=== PATIENT | female | born 1985 | race Caucasian/White ===

== ENCOUNTER 2020-10-13 10:49 | Outpatient (REF) | payer OTHER, SELFPAY ==
[2020-10-13 11:37] LABS: MANUAL DIFF FLAG NO
[2020-10-13 11:57] LABS: Basophils Percent Auto 0.4 % (0-2); Eosinophils Absolute Auto 0.1 X10*3/uL (0.0-0.4); Eosinophils Percent Auto 2.4 % (0-4); Hematocrit 41.2 % (37-47); Hemoglobin 13.2 g/dl (12.0-16.0); Imm Gran Abs Auto 0.01 X10*3/uL (0.00-0.03); Imm Gran Pct Auto 0.2 % (0.0-0.4); Lymphocytes Absolute Auto 1.7 X10*3/uL (1.2-4.9); Lymphocytes Percent Auto 32.1 % (20-40); Mean Corpuscular Hemoglobin 27.3 pg (27.0-33.0); Mean Corpuscular Volume 85.1 fL (80-98); Mean Platelet Volume 10.9 fL (9.4-12.3); Monocytes Absolute Auto 0.5 X10*3/uL (0.1-1.2); Neutrophils Percent Auto 55.9 % (45-73); Platelet Count 208 X10*3/uL (160-400); Red Blood Count 4.84 X10*6/uL (4.20-5.50); Red Cell Distribution Width 12.6 % (11.0-16.0); White Blood Count 5.4 X10*3/uL (4.8-10.8)
[2020-10-13 12:23] LABS: Alanine Aminotransferase 38 U/L (0-31); Alkaline Phosphatase 111 U/L (39-117); Anion Gap 15 (12-20); Aspartate Amino Transferase 29 U/L (5-31); Bilirubin Total 0.5 mg/dL (0.0-1.0); Blood Urea Nitrogen 9 mg/dL (9-16); Calcium 8.5 mg/dL (8.4-10.2); Carbon Dioxide 23 mmol/L (22-29); Chloride 107 mmol/L (96-108); Cholesterol 110 mg/dL; Estimated Glomerular Filt Rate > 60; Glucose Fasting 94 mg/dL (60-99); HDL Cholesterol 28 mg/dL; LDL Cholesterol Calculated 70 mg/dl; Potassium 4.3 mmol/L (3.3-5.1); Sodium 141 mmol/L (135-145); Total Protein 7.8 g/dL (6.5-8.0); Triglycerides 63 mg/dL
== END 2020-10-13 10:50 | disposition home or self-care (01) ==
LOC: HO.LAB 10:49
PROVIDERS: PCP Internal Medicine; Visit Provider Nurse Practitioner Family
DX: H60.90 Unspecified otitis externa, unspecified ear (principal)
CPT/HCPCS: 36415; 80053; 80061; 85025

== ENCOUNTER 2021-04-13 14:54 | Outpatient (REF) | payer OTHER, SELFPAY | END 2021-04-13 14:55 | disposition home or self-care (01) | LOC: HO.LAB 14:54 | PROVIDERS: PCP Internal Medicine; Visit Provider Internal Medicine | DX: Z20.822 Contact with and (suspected) exposure to COVID-19 (principal) | CPT/HCPCS: C9803; U0003; U0005 ==

== ENCOUNTER 2022-09-21 09:57 | Outpatient (REF) | payer MEDICAID, SELFPAY ==
[2022-09-21 10:50] LABS: MANUAL DIFF FLAG NO
[2022-09-21 10:53] LABS: Basophils Percent Auto 0.4 % (0-2); Eosinophils Absolute Auto 0.1 X10*3/uL (0.0-0.4); Eosinophils Percent Auto 0.6 % (0-4); Hemoglobin 13.1 g/dl (12.0-16.0); Imm Gran Abs Auto 0.05 X10*3/uL (0.00-0.03); Imm Gran Pct Auto 0.5 % (0.0-0.4); Lymphocytes Absolute Auto 2.7 X10*3/uL (1.2-4.9); Lymphocytes Percent Auto 27.2 % (20-40); Mean Corpuscular HGB Conc 32.8 g/dl (31.0-35.0); Mean Corpuscular Hemoglobin 27.7 pg (27.0-33.0); Mean Corpuscular Volume 84.6 fL (80.0-98.0); Mean Platelet Volume 10.6 fL (9.4-12.3); Monocytes Absolute Auto 0.4 X10*3/uL (0.1-1.2); Monocytes Percent Auto 4.4 % (2-11); Neutrophils Absolute Auto 6.7 x10*3/uL (2.0-8.3); Neutrophils Percent Auto 66.9 % (45-73); Platelet Count 233 X10*3/uL (160-400); Red Blood Count 4.73 X10*6/uL (4.20-5.50); Red Cell Distribution Width 12.8 % (11.0-16.0)
[2022-09-21 12:27] LABS: Alanine Aminotransferase 32 U/L (0-31); Albumin Level 3.8 g/dL (3.5-5.0); Alkaline Phosphatase 118 U/L (39-117); Anion Gap 11 (12-20); Aspartate Amino Transferase 21 U/L (5-31); Bilirubin Total 0.5 mg/dL (0.0-1.0); Blood Urea Nitrogen 12 mg/dL (9-16); Calcium 8.8 mg/dL (8.4-10.2); Carbon Dioxide 26 mmol/L (22-29); Chloride 106 mmol/L (96-108); Cholesterol 137 mg/dL; Estimated Glomerular Filt Rate > 60; Glucose Fasting 110 mg/dL (60-99); HDL Cholesterol 39 mg/dL; LDL Cholesterol Calculated 86 mg/dl; Potassium 4.2 mmol/L (3.3-5.1); Sodium 139 mmol/L (135-145); Total Protein 7.5 g/dL (6.5-8.0); Triglycerides 63 mg/dL
== END 2022-09-21 09:58 | disposition home or self-care (01) ==
LOC: HO.10HDL 09:57
PROVIDERS: Visit Provider Internal Medicine
DX: Z00.00 Encounter for general adult medical examination without abnormal findings (principal); E28.2 Polycystic ovarian syndrome; E66.01 Morbid (severe) obesity due to excess calories; F32.9 Major depressive disorder, single episode, unspecified; F41.8 Other specified anxiety disorders; F43.12 Post-traumatic stress disorder, chronic; H60.391 Other infective otitis externa, right ear; Z12.4 Encounter for screening for malignant neoplasm of cervix
CPT/HCPCS: 36415; 80053; 80061; 84443; 85025

== ENCOUNTER 2022-10-25 12:20 | Outpatient (REF) | payer MEDICAID, SELFPAY ==
[2022-10-25 16:18] LABS: CT PCR NOT DETECTED (Not Detect.); NG PCR NOT DETECTED (Not Detect.)
== END 2022-10-25 12:21 | disposition home or self-care (01) ==
LOC: HO.10HDL 12:20
PROVIDERS: Visit Provider Internal Medicine
DX: E28.2 Polycystic ovarian syndrome (principal); E66.01 Morbid (severe) obesity due to excess calories; A59.01 Trichomonal vulvovaginitis; R73.01 Impaired fasting glucose
CPT/HCPCS: 0353U

== ENCOUNTER 2023-02-23 12:19 | Outpatient (REF) | payer MEDICAID, SELFPAY ==
[2023-02-23 13:56] LABS: Estimated Average Glucose 103 mg/dL; Hemoglobin A1c % 5.2 %
[2023-02-23 14:19] LABS: Alanine Aminotransferase 26 U/L (0-31); Alkaline Phosphatase 97 U/L (39-117); Anion Gap 13 (12-20); Aspartate Amino Transferase 20 U/L (5-31); Bilirubin Total 0.9 mg/dL (0.0-1.0); Blood Urea Nitrogen 11 mg/dL (9-16); Calcium 9.1 mg/dL (8.4-10.2); Carbon Dioxide 22 mmol/L (22-29); Chloride 109 mmol/L (96-108); Estimated Glomerular Filt Rate > 60; Glucose Random 95 mg/dL (60-115); Sodium 140 mmol/L (135-145); Total Protein 8.1 g/dL (6.5-8.0)
[2023-02-23 18:09] LABS: CT PCR NOT DETECTED (Not Detect.); NG PCR NOT DETECTED (Not Detect.)
== END 2023-02-23 12:20 | disposition home or self-care (01) ==
LOC: HO.10HDL 12:19
PROVIDERS: Visit Provider Internal Medicine
DX: A59.01 Trichomonal vulvovaginitis (principal); E28.2 Polycystic ovarian syndrome; E66.01 Morbid (severe) obesity due to excess calories; R73.01 Impaired fasting glucose
CPT/HCPCS: 0353U; 80053; 83036

== ENCOUNTER → 2023-03-08 10:07 | Outpatient (BNVA) | payer MEDICAID, SELFPAY | PROVIDERS: PCP Internal Medicine; Visit Provider Physician Assistant Surgical ==

== ENCOUNTER 2023-03-29 08:05 | Outpatient (AMB) | payer MEDICAID, SELFPAY ==
--- NOTE | 2023-03-29 11:58 | A.OFFVIS_ITS ---
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 Allergies No Known Allergies [No Known Allergies*] Allergy (Unknown, Verified 03/29/23 11:58) Medication List - Last Reconciled 03/29/23 by Obdulio Davies MD escitalopram oxalate 10 mg PO DAILY levonorgestrel (Plan B One-Step) 1.5 mg PO ONCE 1 day lorazepam 1 mg PO DAILY PRN melatonin 5 mg PO BEDTIME [id number] 3.5-10,000-1 mg/mL-unit/mL-% 4 drps otic (ears) Q8H 7 days HPI 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 HPI Details Start time: 11.45am, End time: 12.27pm ?I spent 37 minutes speaking with the patient on the phone plus an additional 5 minutes reviewing and updating records for a total of 42 minutes HPI Comments History of Present Illness Details Previous weight loss efforts: Exercise, self diets, OTC pills (Hydroxycut), Karely Mcleod Wakes up: 6am, Sleeps: 2am Breakfast: skips Lunch: 12pm (boiled or scrambled egg with toast or cereal) Dinner: 5pm (chicken, rice and beans) Snacks: toasted bread at 8pm Exercise: has home stationary bike Fluids: Coffee: none, tea: none, soda: 1-2/month,juice: none, ETOH: none PFSH Medical History (Updated 03/29/23 @ 12:03 by Obdulio Davies MD) Anxiety and depression Back pain Morbid obesity Otitis externa Prediabetes Surgical History (Updated 03/29/23 @ 12:03 by Obdulio Davies MD) History of cataract surgery Assessment & Plan Assessment & Plan (1) Morbid obesity: Code(s): E66.01 - Morbid (severe) obesity due to excess calories Plan: 1.? Plan for lap sleeve gastrectomy. If diaphragmatic or ventral hernias are present at time of surgery, these will be repaired laparoscopically as well. Risks and complications were discussed in detail including possible conversion to an open procedure, anastomotic leak, bleeding requiring transfusion, small bowel obstruction, , DVT and pulmonary embolism, cardiac, or pulmonary complications, as half-way complications such as anastomotic ulcer, insufficient weight loss and vitamin deficiencies. I emphasized the importance of close follow-up, adherence to instructions and good communication. 2. Nutritional counseling. Start with 2 plant-based organic Orgain protein (buy at [employer], [employer], [employer], [employer]) shakes (ONE scoop EACH in 8oz low fat unsweetened almond milk each) at 7am-9am and 10am-12pm, 2 protein bars (Zone Perfect protein bars, buy at [employer], ?[employer], [employer], or [employer]) at 1pm-3pm and 4pm-6pm, dinner at 7pm (8 forks of protein and 8 forks of salad/vegetables) AND TWO more protein bars after dinner at 9pm-11pm and 12am-2am. Meal to include lean meat (beef, fish, pork, turkey, chicken), or frisian yogurt, or egg whites, or beans with a salad with olive oil and fruits (berries, pears, apples, kiwi). Avoid salt, breads, potatoes, rice, pasta, desserts. 3. Each shake would be drunk slowly, like coffee in a period of 2 hours. 4. Cut each bar in 4 pieces and eat each piece in 30min ?to make each bar last 2 hours. 5. I emphasized the importance of measuring accurately the food portion and measure it when serving the food in plate 6. The meal portions include 8 full-size forks of meat and 8 full-size forks of salad. You always eat the meat portion but you can replace up to 4 forks for salad/vegetables with rice, potatoes or pasta, or a fruit ?if you like. The less you do it the better weight loss will be. 7. One full-size fork is what it can be scooped on the fork without falling aside and not what can be bit with the fork. Use regular forks like those you find in a typical restaurant. 8.? Please send me weight measurements as soon as possible and then once a week. Always include your diet and exercise plan. 9. Start stationary bike at a resistance level of 4.0 Increase level by 1.0 every 3 min to a max level of 10.0. Stay at this level for 3 min and then return to level 4.0 and repeat same steps until 300 calories are burned. Goal is to burn 2000 calories per week on exercise, which means either 300 calories daily, or 400 calories 5 days per week, or 500 calories 4 days per week, or 650 calories 3 days per week. 10.?It is important of avoiding and for at least 18 months postoperatively and has been discussed at the infosession. 11. Goal is to lose at least 1.5-2lbs per week 12. Goal to lose 10% of your weight before surgery, which is about 25lbs. Ultimate weight goal: 220lbs before surgery 13. Please follow the diet plan exactly without any change. If you don't like something about the plan or you feel hungry you need to communicate with me so I can help you revise the plan. You should not change the plan yourself. (2) Anxiety and depression: Code(s): F41.9 - Anxiety disorder, unspecified; F32.9 - Major depressive disorder, single episode, unspecified (3) Back pain: Code(s): M54.9 - Dorsalgia, unspecified (4) Prediabetes: Code(s): R73.03 - Prediabetes Orders: Orders Vitamin B12 and Folate Today E66.01 - Morbid (severe) obesity due to excess calories, F32.9 - Major depressive disorder, single episode, unspecified, F41.9 - Anxiety disorder, unspecified, M54.9 - Dorsalgia, unspecified, R73.03 - Prediabetes Comprehensive Met. Panel Today E66.01 - Morbid (severe) obesity due to excess calories, F32.9 - Major depressive disorder, single episode, unspecified, F41.9 - Anxiety disorder, unspecified, M54.9 - Dorsalgia, unspecified, R73.03 - Prediabetes C Reactive Protein Today E66.01 - Morbid (severe) obesity due to excess calories, F32.9 - Major depressive disorder, single episode, unspecified, F41.9 - Anxiety disorder, unspecified, M54.9 - Dorsalgia, unspecified, R73.03 - Prediabetes Ferritin Today E66.01 - Morbid (severe) obesity due to excess calories, F32.9 - Major depressive disorder, single episode, unspecified, F41.9 - Anxiety disorder, unspecified, M54.9 - Dorsalgia, unspecified, R73.03 - Prediabetes Hemoglobin A1c Today E66.01 - Morbid (severe) obesity due to excess calories, F32.9 - Major depressive disorder, single episode, unspecified, F41.9 - Anxiety disorder, unspecified, M54.9 - Dorsalgia, unspecified, R73.03 - Prediabetes Insulin Today E66.01 - Morbid (severe) obesity due to excess calories, F32.9 - Major depressive disorder, single episode, unspecified, F41.9 - Anxiety disorder, unspecified, M54.9 - Dorsalgia, unspecified, R73.03 - Prediabetes IRON PROFILE Today E66.01 - Morbid (severe) obesity due to excess calories, F32.9 - Major depressive disorder, single episode, unspecified, F41.9 - Anxiety disorder, unspecified, M54.9 - Dorsalgia, unspecified, R73.03 - Prediabetes Lipid Panel Today E66.01 - Morbid (severe) obesity due to excess calories, F32.9 - Major depressive disorder, single episode, unspecified, F41.9 - Anxiety dis order, unspecified, M54.9 - Dorsalgia, unspecified, R73.03 - Prediabetes PTHI Today E66.01 - Morbid (severe) obesity due to excess calories, F32.9 - Major depressive disorder, single episode, unspecified, F41.9 - Anxiety disorder, unspecified, M54.9 - Dorsalgia, unspecified, R73.03 - Prediabetes TSH reflex Free T4 Today E66.01 - Morbid (severe) obesity due to excess calories, F32.9 - Major depressive disorder, single episode, unspecified, F41.9 - Anxiety disorder, unspecified, M54.9 - Dorsalgia, unspecified, R73.03 - Prediabetes Vitamin A Today E66.01 - Morbid (severe) obesity due to excess calories, F32.9 - Major depressive disorder, single episode, unspecified, F41.9 - Anxiety disorder, unspecified, M54.9 - Dorsalgia, unspecified, R73.03 - Prediabetes Vitamin B1 Today E66.01 - Morbid (severe) obesity due to excess calories, F32.9 - Major depressive disorder, single episode, unspecified, F41.9 - Anxiety disorder, unspecified, M54.9 - Dorsalgia, unspecified, R73.03 - Prediabetes Vitamin D 25-OH Total Today E66.01 - Morbid (severe) obesity due to excess calories, F32.9 - Major depressive disorder, single episode, unspecified, F41.9 - Anxiety disorder, unspecified, M54.9 - Dorsalgia, unspecified, R73.03 - Prediabetes Zinc Today E66.01 - Morbid (severe) obesity due to excess calories, F32.9 - Major depressive disorder, single episode, unspecified, F41.9 - Anxiety disorder, unspecified, M54.9 - Dorsalgia, unspecified, R73.03 - Prediabetes ECG 12 lead EKG Today E66.01 - Morbid (severe) obesity due to excess calories, F32.9 - Major depressive disorder, single episode, unspecified, F41.9 - Anxiety disorder, unspecified, M54.9 - Dorsalgia, unspecified, R73.03 - Prediabetes FL upper GI w air Today E66.01 - Morbid (severe) obesity due to excess calories, F32.9 - Major depressive disorder, single episode, unspecified, F41.9 - Anxiety disorder, unspecified, M54.9 - Dorsalgia, unspecified, R73.03 - Prediabetes Complete Blood Count Auto Diff Today E66.01 - Morbid (severe) obesity due to excess calories, F32.9 - Major depressive disorder, single episode, unspecified, F41.9 - Anxiety disorder, unspecified, M54.9 - Dorsalgia, unspecified, R73.03 - Prediabetes H Pylori Breath Test Today E66.01 - Morbid (severe) obesity due to excess calories, F32.9 - Major depressive disorder, single episode, unspecified, F41.9 - Anxiety disorder, unspecified, M54.9 - Dorsalgia, unspecified, R73.03 - Prediabetes US abdomen comp w elastography Today E66.01 - Morbid (severe) obesity due to excess calories, F32.9 - Major depressive disorder, single episode, unspecified, F41.9 - Anxiety disorder, unspecified, M54.9 - Dorsalgia, unspecified, R73.03 - Prediabetes XR chest 2V Today E66.01 - Morbid (severe) obesity due to excess calories, F32.9 - Major depressive disorder, single episode, unspecified, F41.9 - Anxiety disorder, unspecified, M54.9 - Dorsalgia, unspecified, R73.03 - Prediabetes Referrals Behavioral Health Referral E66.01 - Morbid (severe) obesity due to excess calories, F32.9 - Major depressive disorder, single episode, unspecified, F41.9 - Anxiety disorder, unspecified, M54.9 - Dorsalgia, unspecified, R73.03 - Prediabetes Nutrition/Dietitian Referral E66.01 - Morbid (severe) obesity due to excess calories, F32.9 - Major depressive disorder, single episode, unspecified, F41.9 - Anxiety disorder, unspecified, M54.9 - Dorsalgia, unspecified, R73.03 - Prediabetes Telehealth Telehealth Location of provider rendering services: practice address Location of patient: address on file Patient Identification confirmed using: Name, : Yes Telehealth method: voice only Patient verbally consented to treatment: Yes Patient verbally consented to billing insurance company: Yes Patient informed of any privacy concerns related to visit: Yes Minutes spent on Phone/Video with Pt.: 42 Coding Level of Care Code Tele [facility] Pt Level 3 (53653) Diagnoses Morbid obesity E66.01 Anxiety and depression F41.9; F32.9 Back pain M54.9 Prediabetes R73.03 Time Spent (min) 42
[2023-03-29 12:08] VITALS: BMI 42.1
== END 2023-03-29 12:28 | disposition home or self-care (01) ==
PROVIDERS: PCP Internal Medicine; Visit Provider Surgery
DX: E66.01 Morbid (severe) obesity due to excess calories (principal); Z68.41 Body mass index [BMI] 40.0-44.9, adult
CPT/HCPCS: 99204

== ENCOUNTER → 2023-03-29 08:05 | Outpatient (BNVA) | payer SELFPAY | PROVIDERS: PCP Internal Medicine; Visit Provider Surgery ==

== ENCOUNTER 2023-04-06 09:55 | Outpatient (REF) | payer MEDICAID, SELFPAY ==
--- NOTE | ~2023-04-06 | XR_ITS ---
EXAMINATION: XR CHEST CLINICAL INFORMATION: Anxiety disorder COMPARISON: None available. TECHNIQUE: 2 views of the chest were obtained. FINDINGS: Lung volumes are low. There is no gross pneumothorax. Heart size is normal. No pleural effusion. Slight leftward curvature of the thoracic spine. XR/XR chest 2V IMPRESSION: No evidence of pneumonia.
--- NOTE | 2023-04-06 10:01 | ECG_ITS ---
Test Reason : anxiety Blood Pressure : / mmHG Vent. Rate : 069 BPM Atrial Rate : 069 BPM P-R Int : 160 ms QRS Dur : 102 ms QT Int : 392 ms P-R-T Axes : 024 -17 025 degrees QTc Int : 420 ms Normal sinus rhythm Normal ECG When compared with ECG of 02-DEC-2014 11:20, Heart rate has increased Referred By: Obdulio Davies Electronically Signed By:VARUN COTTER
[2023-04-06 10:18] LABS: MANUAL DIFF FLAG NO
[2023-04-06 10:38] LABS: Basophils Percent Auto 0.3 % (0-2); Eosinophils Absolute Auto 0.1 X10*3/uL (0.0-0.4); Eosinophils Percent Auto 0.8 % (0-4); Hematocrit 40.5 % (37.0-47.0); Imm Gran Abs Auto 0.02 X10*3/uL (0.00-0.03); Imm Gran Pct Auto 0.2 % (0.0-0.4); Lymphocytes Absolute Auto 2.4 X10*3/uL (1.2-4.9); Lymphocytes Percent Auto 26.2 % (20-40); Mean Corpuscular HGB Conc 32.1 g/dl (31.0-35.0); Mean Corpuscular Hemoglobin 26.9 pg (27.0-33.0); Mean Corpuscular Volume 83.7 fL (80.0-98.0); Monocytes Absolute Auto 0.4 X10*3/uL (0.1-1.2); Monocytes Percent Auto 4.4 % (2-11); Neutrophils Absolute Auto 6.2 x10*3/uL (2.0-8.3); Neutrophils Percent Auto 68.1 % (45-73); Platelet Count 226 X10*3/uL (160-400); Red Blood Count 4.84 X10*6/uL (4.20-5.50); White Blood Count 9.1 X10*3/uL (4.8-10.8)
[2023-04-06 11:16] LABS: Alanine Aminotransferase 22 U/L (0-31); Albumin Level 3.8 g/dL (3.5-5.0); Alkaline Phosphatase 86 U/L (39-117); Anion Gap 11 (12-20); Aspartate Amino Transferase 17 U/L (5-31); Bilirubin Total 0.5 mg/dL (0.0-1.0); Blood Urea Nitrogen 13 mg/dL (9-16); C Reactive Protein 2.38 mg/dL (< or = 0.50); Calcium 9.3 mg/dL (8.4-10.2); Carbon Dioxide 24 mmol/L (22-29); Chloride 110 mmol/L (96-108); Cholesterol 143 mg/dL (<200); Estimated Glomerular Filt Rate > 60; Glucose Random 93 mg/dL (60-115); HDL Cholesterol 41 mg/dL (>40); Iron 40 mcg/dL (30-160); LDL Cholesterol Calculated 85 mg/dL (<100); Percent Iron Saturation 12 % (15-50); Potassium 3.7 mmol/L (3.3-5.1); Sodium 141 mmol/L (135-145); Total Iron Binding Capacity 338 mcg/dL (228-428); Total Protein 7.8 g/dL (6.5-8.0); Triglycerides 86 mg/dL (<150); Unsaturated Iron Binding 298 ug/dL
[2023-04-06 11:26] LABS: Estimated Average Glucose 103 mg/dL; Hemoglobin A1c % 5.2 % (<6.0)
[2023-04-06 11:40] LABS: Ferritin 105 ng/mL (10-122); Insulin 18 uU/mL (2-29); TSH reflex Free T4 1.39 uIU/mL (0.32-4.0)
[2023-04-06 11:41] LABS: Vitamin B12 296 pg/mL (200-900)
[2023-04-10 13:59] LABS: Calcium (PTHI) 9.2 mg/dL (8.6-10.2); PTHI 63 pg/mL (16-77)
[2023-04-11 02:09] LABS: Zinc 56 mcg/dL (60-130)
[2023-04-13 21:23] LABS: Vitamin A 49 mcg/dL (38-98)
[2023-04-14 14:49] LABS: Vitamin B1 11 nmol/L (8-30)
== END 2023-04-06 09:56 | disposition home or self-care (01) ==
LOC: HO.LAB 09:55
PROVIDERS: PCP Internal Medicine; Visit Provider Surgery
DX: F41.9 Anxiety disorder, unspecified (principal); F32.9 Major depressive disorder, single episode, unspecified; E66.01 Morbid (severe) obesity due to excess calories; M54.9 Dorsalgia, unspecified; R73.03 Prediabetes
CPT/HCPCS: 36415; 71046; 80053; 80061; 82306; 82607; 82728; 82746; 83036; 83525; 83540; 83970; 84425; 84443; 84590; 84630; 85025; 86140; 93005

== ENCOUNTER → 2023-04-07 10:59 | Outpatient (BNVA) | payer MEDICAID, SELFPAY | PROVIDERS: PCP Internal Medicine; Visit Provider Surgery | DX: Z11.0 Encounter for screening for intestinal infectious diseases (principal) | CPT/HCPCS: 83013 ==

== ENCOUNTER 2023-04-11 12:58 | Outpatient (AMB) | payer MEDICAID, SELFPAY ==
--- NOTE | 2023-04-11 13:02 | MHC.AMNUTRGE ---
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 doesn't recall most of class 6 on post op nutrition she feels that she needs more education around nutrition label reading, education provided today using real food labels Dietary counseling reduction Who buys your food self Who prepares/cooks your food self Lifestyle Food frequency Fruit: never, Vegetables: never, Grains/pasta/breads/cereal (carbs): daily, Meats/poultry/fish (protein): daily and Meat substitutes/nuts/seeds/legumes: daily Diagnosis Nutrition problem #1 overweight/obesity As related to (etiology) #1 excess energy intake and physical inactivity As evidenced by (sign/symptom) #1 high BMI Monitoring/Goals Nutrition problem monitoring total energy intake, level of knowledge/skill, total PRO intake, total CHO intake and weight Outcome progress progressing Learning/Education Readiness to learn good Stages of change action Educational materials provided Yes Most Recent Diabetes Results: Cholesterol 143 mg/dL (<200) 04/06/23 HDL Cholesterol 41 mg/dL (>40) 04/06/23 Triglycerides 86 mg/dL (<150) 04/06/23 Creatinine 0.79 mg/dL (0.5-1.4) 04/06/23 Blood Urea Nitrogen 13 mg/dL (9-16) 04/06/23 Sodium 141 mmol/L (135-145) 04/06/23 Potassium 3.7 mmol/L (3.3-5.1) 04/06/23 Chloride 110 mmol/L (96-108) H 04/06/23 Carbon Dioxide 24 mmol/L (22-29) 04/06/23 Calcium 9.3 mg/dL (8.4-10.2) 04/06/23 AST 17 U/L (5-31) 04/06/23 ALT 22 U/L (0-31) 04/06/23 Total Protein 7.8 g/dL (6.5-8.0) 04/06/23 Albumin 3.8 g/dL (3.5-5.0) 04/06/23 [facility] Medical History (Updated 03/29/23 @ 12:03 by Obdulio Davies MD) Prediabetes Back pain Morbid obesity Anxiety and depression Otitis externa Surgical History (Updated 03/29/23 @ 12:03 by Obdulio Davies MD) History of cataract surgery Assessment & Plan Assessment & Plan (1) Morbid obesity: Code(s): E66.01 - Morbid (severe) obesity due to excess calories Patient Instructions: She will discuss with Dr. Davies options to change her plan. would recommend switching protein bar to lower sugar version and to a shake she prefers the taste of. Will follow up again in a month after she has had more time with her nutrition plan. f/u 05/16 1pm video Coding Level of Care Code Nutr Indiv Intake (84349) Diagnoses Morbid obesity E66.01 Time Spent (min) 35
== END 2023-04-11 14:00 | disposition home or self-care (01) ==
PROVIDERS: PCP Internal Medicine; Visit Provider Dietitian, Registered
DX: E66.01 Morbid (severe) obesity due to excess calories (principal)

== ENCOUNTER → 2023-04-11 12:58 | Outpatient (BNVA) | payer MEDICAID, SELFPAY | PROVIDERS: PCP Internal Medicine; Visit Provider Dietitian, Registered | DX: E66.01 Morbid (severe) obesity due to excess calories (principal) | CPT/HCPCS: 97802 ==

== ENCOUNTER 2023-04-28 08:07 | Outpatient (AMB) | payer MEDICAID, SELFPAY ==
--- NOTE | 2023-04-28 11:05 | MHC.OFFVISWM ---
Intake VS Expanded 04/28/23 11:17 Height 5 ft 4 in Weight 239 lb 4 oz BMI 41.1 Body Fat % 53.9 Body Fat Mass 129 Fat Free Mass 110.4 Visceral Fat Rating 22 Body Water % 31.6 Body Water Mass 75.6 Basal Metabolic Rate/Score 1,464 Intake Visit Reasons: TV Follow Up SWL - 1ST Allergies No Known Allergies [No Known Allergies*] Allergy (Unknown, Verified 03/29/23 11:58) HPI TV Follow Up SWL - 1ST HPI Details Start time: 11.01am, End time: 11.24am ?I spent 18 minutes speaking with the patient on the phone plus an additional 5 minutes reviewing and updating records for a total of 23 minutes HPI Comments History of Present Illness Details Overall weight loss: 8.2lbs, or 3.34% TBWL Is doing 2 Orgain protein shakes, 2 Zone Perfect protein bars and the meal Exercise: is doing the stationary bike for 300 calories daily [facility] Medical History (Updated 04/17/23 @ 20:53 by Obdulio Davies MD) Prediabetes Back pain Morbid obesity Anxiety and depression Otitis externa Surgical History (Updated 03/29/23 @ 12:03 by Obdulio Davies MD) History of cataract surgery Assessment & Plan Assessment & Plan (1) Morbid obesity: Code(s): E66.01 - Morbid (severe) obesity due to excess calories Plan: 1. Please change nutritional plan to 2 Orgain protein shakes with HALF scoop EACH in 8oz almond milk, 2 Zone Perfect protein bars before dinner, one meal (EIGHT FORKS of protein and EIGHT FORKS of salad or vegetables) and 1-2 Zone Perfect protein bars after dinner depending on the level of hunger. 2. Exercise: continue the stationary bike for 300 calories daily. You may do more than 300 calories some days if you feel you could do that. Goal is to burn at least 2000 calories per week 3. Continue to send me weight measurements weekly on Fridays Telehealth Telehealth Location of provider rendering services: practice address Location of patient: address on file Patient Identification confirmed using: Name, : Yes Telehealth method: voice only Patient verbally consented to treatment: Yes Patient verbally consented to billing insurance company: Yes Patient informed of any privacy concerns related to visit: Yes Coding Level of Care Code Tele Est Pt Level 3 (55118) Diagnoses Morbid obesity E66.01 Time Spent (min) 23
[2023-04-28 11:17] VITALS: BMI 41.1
== END 2023-04-28 11:25 | disposition home or self-care (01) ==
LOC: HO.HBS 08:08
PROVIDERS: PCP Internal Medicine; Visit Provider Surgery
DX: E66.01 Morbid (severe) obesity due to excess calories (principal)
CPT/HCPCS: 99213

== ENCOUNTER → 2023-04-28 08:07 | Outpatient (BNVA) | payer MEDICAID, SELFPAY | PROVIDERS: PCP Internal Medicine; Visit Provider Surgery ==

== ENCOUNTER → 2023-05-02 13:05 | Outpatient (BNVA) | payer OTHER, MEDICAID, SELFPAY | PROVIDERS: PCP Internal Medicine; Visit Provider Counselor Mental Health | DX: F41.9 Anxiety disorder, unspecified (principal); F32.9 Major depressive disorder, single episode, unspecified; E66.01 Morbid (severe) obesity due to excess calories | CPT/HCPCS: 90791 ==

== ENCOUNTER 2023-05-16 10:57 | Outpatient (REF) | payer MEDICAID, SELFPAY ==
[2023-05-18 16:31] LABS: H Pylori Breath Test Negative (Negative)
== END 2023-05-16 10:58 | disposition home or self-care (01) ==
LOC: CF 10:57
PROVIDERS: PCP Internal Medicine; Visit Provider Physician Assistant
DX: Z01.818 Encounter for other preprocedural examination (principal); E66.9 Obesity, unspecified; Z68.41 Body mass index [BMI] 40.0-44.9, adult; Z71.3 Dietary counseling and surveillance; Z11.0 Encounter for screening for intestinal infectious diseases
CPT/HCPCS: 83013; 97803; 99211

== ENCOUNTER 2023-05-24 13:42 | Outpatient (AMB) | payer MEDICAID, SELFPAY ==
--- NOTE | 2023-05-24 14:01 | MHC.WMTHER ---
Intake Intake Visit Reasons: (OV) BH F/U Allergies No Known Allergies [No Known Allergies*] Allergy (Unknown, Verified 03/29/23 11:58) [facility] Medical History (Updated 04/17/23 @ 20:53 by Obdulio Davies MD) Prediabetes Back pain Morbid obesity Anxiety and depression Otitis externa Surgical History (Updated 03/29/23 @ 12:03 by Obdulio Davies MD) History of cataract surgery Behavioral Health Assessment Weight Management Therapy Therapy Notes Details Patient stated that she is doing well in the program. Continuing therapy weekly at [facility], sleep has improved from 2 hours to 6 hours every night. She reported living off of two hours of sleep for many years with no problem. She reported minimal supports and not leaving her house often due to anxiety, also does not drive. Pt stated that she is in therapy at [facility] for about two years now and also sees Tamir Krause for medication management. She reported that she struggles with symptoms from PTSD, anxiety, and depression. She has no history of inpatient psychiatric admissions or problems with drugs or alcohol. Presenting Concerns Referral Source provider Reason for referral weight loss surgery evaluation Precipitating Event obesity Living Situation Current Living Situation Rent At risk of losing current housing? No Satisfied with current living situation? Yes Comments Pt lives with her 4 children ages 19, 16, 13, and 5 years old. Food/Weight/Diet Expectations of change weight loss and maintenance History/Relationship with food Pt stated that she would not eat all day and then eat at 3pm. She would eat rice, beans, corn, mashed potatoes, chicken, chips, chocolate. History/Relationship with weight Pt stated that she has been struggling with her weight since 22 years old. She is currently at her heaviest. History/Relationship with dieting various different diets Binge Eating Do you frequently eat large amounts of food in short periods of time, not feeling physically hungry? No Do you feel out of control when you eat a large amount of food in a short period of time? No Do you eat large amounts of food rapidly and typically alone? Yes Night Eating Do you wake up at least once during the night to eat? No If you wake up in the night, do you find that it is necessary to eat something in order to fall back asleep? No Do you have little or no appetite in the morning and feel very hungry in the evening, often overeating between dinner and when you go to bed? Yes Social History Family history and relationship Pt reported a history of trauma. She reported that she was born in [place] and then left with her dad and her brother to go live in [place], [place]. Her mother stayed in [place] and she never moved back there. Her mom then had three more children. 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 Today she reported that her brother and sister in law had surgery here at [facility] this past year and she does have contact with them. Episcopal/Spirituality Congregational Cultural/Ethnic information Legal Involvement and History Current or historical involvement with the legal system? none reported Education Highest grade completed GED Preferred learning style Auditory, Verbal, Written, Learn by doing and Visual Currently enrolled in educational program? No Interested in further educational program? No Employment Employment Status Unemployed Wants help to find employment? No Meaningful activities patient denied any Financial Situation Describe current financial situation Occasional struggle Service Service? No Mental Health and Addiction Treatment Current/Past substance abuse? No Current/Past addictive behavior concerns? No Medical and Physical Health Summary Physical exam in the last year? Yes Pain Screening Current pain? No Pain in the last few months? No Medications Is the patient compliant with medications? Yes Does the patient have Ashley Guardian in place? Not applicable Does the patient use complimentary health approaches? No Trauma/Abuse History History of trauma? Yes Assessment & Plan Assessment & Plan (1) Anxiety and depression: Code(s): F41.9 - Anxiety disorder, unspecified; F32.9 - Major depressive disorder, single episode, unspecified (2) Morbid obesity: Code(s): E66.01 - Morbid (severe) obesity due to excess calories Plan Patient is a quiet 38 year old female, single mother to 4 children. Patient was guarded and denied any issues. She does at times take up to 2mg of lorazepam daily due to severe anxiety from ptsd as her main coping mechanism. She is also in weekly therapy. Patient is doing well in the program and is cleared for surgery when ready. She should continue with her therapist and psychiatrist. Coding Level of Care Code Psytx 45 mins (44842) Diagnoses Anxiety and depression F41.9; F32.9 Morbid obesity E66.01 Time Spent (min) 40
== END 2023-05-24 14:28 | disposition home or self-care (01) ==
PROVIDERS: PCP Internal Medicine; Visit Provider Counselor Mental Health
DX: F41.9 Anxiety disorder, unspecified (principal); F32.9 Major depressive disorder, single episode, unspecified; E66.01 Morbid (severe) obesity due to excess calories
CPT/HCPCS: 90834

== ENCOUNTER → 2023-05-24 13:42 | Outpatient (BNVA) | payer MEDICAID, SELFPAY | PROVIDERS: PCP Internal Medicine; Visit Provider Counselor Mental Health | DX: F41.9 Anxiety disorder, unspecified (principal); F32.9 Major depressive disorder, single episode, unspecified; E66.01 Morbid (severe) obesity due to excess calories; Z79.899 Other long term (current) drug therapy | CPT/HCPCS: 90834 ==

== ENCOUNTER 2023-06-02 08:24 | Outpatient (AMB) | payer MEDICAID, SELFPAY ==
--- NOTE | 2023-06-02 10:10 | A.OFFVIS_ITS ---
Intake VS Expanded 06/02/23 10:17 Height 5 ft 4 in Weight 228 lb BMI 39.1 Body Fat % 51.4 Body Fat Mass 118.1 Fat Free Mass 111.6 Visceral Fat Rating 21 Body Water % 33.3 Body Water Mass 76.5 Basal Metabolic Rate/Score 1,457 Intake Visit Reasons: TV Follow Up SWL Allergies No Known Allergies [No Known Allergies*] Allergy (Unknown, Verified 03/29/23 11:58) HPI TV Follow Up SWL HPI Details Start time: 10.00am, End time: 10.23am ?I spent 18 minutes speaking with the patient on the phone plus an additional 5 minutes reviewing and updating records for a total of 23 minutes HPI Comments History of Present Illness Details Overall weight loss: 17.8 lbs, or 7.24% TBWL Is doing 2 Orgain protein shakes (1/2 scoop in almond milk), 2 Zone Perfect protein bars and one meal (8 forks of protein and 8 forks of salad or vegetables) Exercise: is doing home stationary bike for 150 calories per session, twice per day, daily [facility] Medical History (Updated 06/02/23 @ 10:22 by Obdulio Davies MD) Prediabetes Back pain Morbid obesity Anxiety and depression Otitis externa Surgical History (Updated 03/29/23 @ 12:03 by Obdulio Davies MD) History of cataract surgery Physical Exam Vital Signs: BMI result Body Mass Index 39.1 Assessment & Plan Assessment & Plan (1) Obesity: Code(s): E66.9 - Obesity, unspecified Plan: 1. Continue same nutritional plan of 2 Orgain protein shakes (1/2 scoop in almond milk), 2 Zone Perfect protein bars and one meal (8 forks of protein and 8 forks of salad or vegetables) 2. Exercise: continue home stationary bike for 150 calories per session, twice per day, daily 3. continue to send me weight measurements weekly on Fridays (2) BMI 39.0-39.9,adult: Code(s): Z68.39 - Body mass index [BMI] 39.0-39.9, adult Telehealth Telehealth Location of provider rendering services: practice address Location of patient: address on file Patient Identification confirmed using: Name, : Yes Telehealth method: voice only Patient verbally consented to treatment: Yes Patient verbally consented to billing insurance company: Yes Patient informed of any privacy concerns related to visit: Yes Minutes spent on Phone/Video with Pt.: 23 Coding Level of Care Code Tele Est Pt Level 3 (27938) Diagnoses Obesity E66.9 BMI 39.0-39.9,adult Z68.39 Time Spent (min) 23
[2023-06-02 10:17] VITALS: BMI 39.1
== END 2023-06-02 10:24 | disposition home or self-care (01) ==
LOC: HO.HBS 08:24
PROVIDERS: PCP Internal Medicine; Visit Provider Surgery
DX: E66.9 Obesity, unspecified (principal); Z68.39 Body mass index [BMI] 39.0-39.9, adult
CPT/HCPCS: 99213

== ENCOUNTER → 2023-06-02 08:24 | Outpatient (BNVA) | payer MEDICAID, SELFPAY | PROVIDERS: PCP Internal Medicine; Visit Provider Surgery ==

== ENCOUNTER 2023-06-09 09:59 | Outpatient (REF) | payer MEDICAID, SELFPAY ==
--- NOTE | ~2023-06-09 | FL_ITS ---
EXAMINATION: XR FLUOROSCOPY UPPER GI WITH AIR CLINICAL INFORMATION: Preop evaluation prior to bariatric surgery COMPARISON: None TECHNIQUE: Fluoroscopic air contrast upper GI examination was performed utilizing standard techniques with thin and thick barium and effervescent granules. Numerous spot images were obtained. FINDINGS: Dual and single contrast images of the esophagus demonstrate normal caliber, contour, and mucosal pattern. No evidence of stricture, mass, or ulcerations identified. Esophageal peristalsis was normal. No evidence of hiatus hernia identified. No significant gastroesophageal reflux was seen during the course of the examination and on reflux views. Dual contrast and single contrast images of the stomach demonstrated normal contour and mucosal pattern without evidence of mass, ulceration, or other abnormality. Contrast freely passed into the gastric antrum and duodenal bulb without delay. Single and air-contrast images of the duodenal bulb demonstrate no abnormality. The duodenal sweep has a normal appearance, course, and mucosal fold appearance. The imaged proximal jejunum has a normal fold pattern and caliber. FLUOROSCOPY TIME: 2.5 minutes Number of Spot Images: 8 Number of Cine: 5 DOSE AREA PRODUCT: 2402 uGy-m2 (microgray-meter squared) FL/FL upper GI w air IMPRESSION: Unremarkable examination. This procedure was performed by Barry Muller PA-C, and supervised by Dr. Cook
== END 2023-06-09 10:00 | disposition home or self-care (01) ==
LOC: HO.XRAY 09:59
PROVIDERS: PCP Internal Medicine; Visit Provider Surgery
DX: E66.01 Morbid (severe) obesity due to excess calories (principal); M54.9 Dorsalgia, unspecified; R73.03 Prediabetes
CPT/HCPCS: 74246

== ENCOUNTER → 2023-06-09 10:02 | Outpatient (BNV) | payer MEDICAID, SELFPAY | PROVIDERS: PCP Internal Medicine; Visit Provider Radiology Diagnostic Radiology | DX: Z01.818 Encounter for other preprocedural examination (principal) | CPT/HCPCS: 74246 ==

== ENCOUNTER 2023-06-30 08:05 | Outpatient (AMB) | payer MEDICAID, SELFPAY ==
--- NOTE | 2023-06-30 09:55 | A.OFFVIS_ITS ---
Intake VS Expanded 06/30/23 10:03 Height 5 ft 4 in Weight 223 lb 2 oz BMI 38.3 Body Fat % 49.7 Body Fat Mass 110.9 Fat Free Mass 112.2 Visceral Fat Rating 20 Body Water % 34.5 Body Water Mass 77 Basal Metabolic Rate/Score 1,460 Intake Visit Reasons: TV Follow Up SWL Allergies No Known Allergies [No Known Allergies*] Allergy (Unknown, Verified 03/29/23 11:58) HPI TV Follow Up SWL HPI Details Start time: 9.47am, End time: 10.07am ?I spent 15 minutes speaking with the patient on the phone plus an additional 5 minutes reviewing and updating records for a total of 20 minutes HPI Comments History of Present Illness Details Overall weight loss: 22.6lbs, or 9.19% TBWL Is doing 2 Orgain protein shakes (1/2 scoop in 8oz almond milk), 2 Zone Perfect protein bars and meal (8 forks of protein and 8 forks of salad or vegetables) Exercise: doing stationary bike for 300-350 calories [facility] Medical History (Updated 06/02/23 @ 10:22 by Obdulio Davies MD) Prediabetes Back pain Morbid obesity Anxiety and depression Otitis externa Surgical History (Updated 03/29/23 @ 12:03 by Obdulio Davies MD) History of cataract surgery Assessment & Plan Assessment & Plan (1) Obesity: Code(s): E66.9 - Obesity, unspecified Plan: 1. Continue same nutritional plan of 2 Orgain protein shakes (1/2 scoop in 8oz almond milk), 2 Zone Perfect protein bars and meal (8 forks of protein and 8 forks of salad or vegetables) 2. Exercise: continue stationary bike for 300-350 calories 3. Continue to send me weight measurements weekly on Fridays Telehealth Telehealth Location of provider rendering services: practice address Location of patient: address on file Patient Identification confirmed using: Name, : Yes Telehealth method: voice only Patient verbally consented to treatment: Yes Patient verbally consented to billing insurance company: Yes Patient informed of any privacy concerns related to visit: Yes Minutes spent on Phone/Video with Pt.: 20 Coding Level of Care Code Tele Est Pt Level 3 (59046) Diagnoses Obesity E66.9 Time Spent (min) 20
[2023-06-30 10:03] VITALS: BMI 38.3
== END 2023-06-30 10:08 | disposition home or self-care (01) ==
LOC: HO.HBS 08:05
PROVIDERS: PCP Internal Medicine; Visit Provider Surgery
DX: E66.9 Obesity, unspecified (principal); Z68.42 Body mass index [BMI] 45.0-49.9, adult
CPT/HCPCS: 99213

== ENCOUNTER → 2023-06-30 08:05 | Outpatient (BNVA) | payer MEDICAID, SELFPAY | PROVIDERS: PCP Internal Medicine; Visit Provider Surgery ==

== ENCOUNTER 2023-07-07 08:58 | Outpatient (REF) | payer MEDICAID, SELFPAY ==
--- NOTE | ~2023-07-07 | US_ITS ---
EXAMINATION: US COMPLETE ABDOMEN WITH LIVER ELASTOGRAPHY CLINICAL INFORMATION: Obesity. COMPARISON: None available. TECHNIQUE: Real-time imaging of the abdominal viscera. Noninvasive ultrasound liver fibrosis assessment is performed using Bear ElastPQ point quantification shear wave elastography (2D-SWE) with a C5-2 MHz transducer. Multiple elastography samples are obtained. : PANCREAS: Normal. The visualized pancreatic head and body are normal in appearance. The remainder of the pancreas is obscured from visualization by the overlying bowel gas. ABDOMINAL AORTA: The proximal, middle, and distal aortic segments are normal in caliber. INFERIOR VENA CAVA: Visualized portions are normal. LIVER: The liver demonstrates normal contour and increased echogenicity. No focal lesion or intrahepatic biliary duct dilatation. The right lobe measures 18.6 cm in length. The left lobe measures 11.6 cm in length. Portal flow is towards the liver (hepatopetal). Shear wave liver elastography median stiffness is 1.51 m/s (reference: normal median stiffness is 1.3 m/s or less). IQR/median stiffness to assess sampling precision is 0.04 (reference: good quality data set is IQR/median stiffness of 0.15 or less). GALLBLADDER: Normal. The gallbladder is physiologically distended without evidence of stones, sludge, polyps, wall thickening or pericholecystic fluid. COMMON BILE DUCT: Normal in caliber measuring 0.5 cm in diameter. RIGHT KIDNEY: There is mild pelviectasis, without eli hydronephrosis. No renal calculi or focal parenchymal lesions. The kidney measures 10.8 cm in maximum dimension. LEFT KIDNEY: Normal. No hydronephrosis. No renal calculi or focal parenchymal lesions. The kidney measures 10.5 cm in maximum dimension. SPLEEN: No focal finding. The spleen measures 13.5 cm in maximum dimension. FREE FLUID: None. US/US abdomen comp w elastography IMPRESSION: 1. There is mild hepatosplenomegaly. 2. There is generalized increase in hepatic echotexture, consistent with fatty infiltration or hepatocellular disease. Please correlate clinically. No focal hepatic mass or intrahepatic biliary dilatation is seen. 3. Liver elastography: In the absence of other known clinical signs, measurements rule out compensated advanced chronic liver disease. If there are known clinical signs, further testing may be needed for confirmation. REFERENCE: Society of Radiologists in Ultrasound Liver Stiffness Thresholds (2020): LIVER STIFFNESS THRESHOLDS: *Liver Stiffness equal or less than 1.3 m/s: High probability of being normal. *Liver Stiffness less than 1.7 m/s: In the absence of other known clinical signs, rules out compensated advanced chronic liver disease. *Liver Stiffness 1.7-2.1 m/s: Suggestive of compensated advanced chronic liver disease but need further test for confirmation. *Liver Stiffness over 2.1 m/s: Rules in compensated advanced chronic liver disease. *Liver Stiffness over 2.4 m/s: Suggestive of clinically significant portal hypertension. QUALITY OF DATA SET: *IQR/Median value equal or less than 0.15 implies a quality data set. *IQR/Median value over 0.15 implies a poor quality data set. SIGNIFICANT CHANGE FROM PRIOR EXAM: Significant change if liver stiffness measurement is 10% or greater from prior exam. OTHER CONSIDERATIONS: The stage of liver fibrosis may be overestimated in the setting of acute hepatitis, liver inflammation, elevated liver function tests, hepatic vascular congestion, obstructive cholestasis, non-fasting state, and infiltrative diseases such as amyloidosis and lymphoma. In some patients with NAFLD, the liver stiffness thresholds for compensated advanced chronic liver disease may be lower. In causes other than viral hepatitis and NAFLD, liver stiffness thresholds are not well established.
== END 2023-07-07 08:59 | disposition home or self-care (01) ==
LOC: HO.US 08:58
PROVIDERS: PCP Internal Medicine; Visit Provider Surgery
DX: E66.01 Morbid (severe) obesity due to excess calories (principal); M54.9 Dorsalgia, unspecified; R73.03 Prediabetes
CPT/HCPCS: 76705; 76981

== ENCOUNTER 2023-07-26 08:18 | Outpatient (AMB) | payer MEDICAID, SELFPAY ==
--- NOTE | 2023-07-26 09:47 | MHC.OFFVISWM ---
Intake VS Expanded 07/26/23 10:07 Height 5 ft 4 in Weight 220 lb BMI 37.8 Body Fat % 48.8 Body Fat Mass 107.3 Fat Free Mass 112.6 Visceral Fat Rating 20 Body Water % 35.1 Body Water Mass 77.2 Basal Metabolic Rate/Score 1,482 Intake Visit Reasons: TV Pre Op LSG 08/02/23 Allergies No Known Allergies [No Known Allergies*] Allergy (Unknown, Verified 07/26/23 09:47) Medication List - Last Reconciled 07/26/23 by Obdulio Davies MD escitalopram oxalate 10 mg PO DAILY lorazepam 1 mg PO DAILY PRN mecobalamin (vitamin B12) 1,000 mcg sublingual DAILY melatonin 5 mg PO BEDTIME ubwncuak-eqzevkztr-JG 3.5-10,000-1 mg/mL-unit/mL-% 4 drps otic (ears) Q8H 7 days ondansetron 4 mg PO Q12H pantoprazole 40 mg PO DAILY polyethylene glycol 3350 (Miralax) 17 grams PO DAILY sucralfate 10 mL PO BID zinc gluconate 15 mg (1/2 x 30 mg) PO DAILY HPI TV Pre Op LSG 08/02/23 HPI Details Start time: 9.40am, End time: 10.13am ?I spent 28 minutes speaking with the patient on the phone plus an additional 5 minutes reviewing and updating records for a total of 33 minutes HPI Comments History of Present Illness Details Overall weight loss: 25.8lbs, or 10.5% TBWL Is already on the liquid diet with protein shakes PFSH Medical History (Updated 07/26/23 @ 10:01 by Obdulio Davies MD) GERD (gastroesophageal reflux disease) Shoulder pain, bilateral History of snoring Prediabetes Back pain Morbid obesity Anxiety and depression Otitis externa Surgical History (Updated 07/25/23 @ 15:13 by Rosalia Aguiar, YONG) History of cataract surgery (~2015) Social History (Updated 07/25/23 @ 15:07 by Rosalia Aguiar, RN) Household Members: Children Household Members Other:: 4 children Housing: Apartment Are you a primary care consultant to a significant other at home: Yes (children, oldest 20 year old will assist post-op) Do you presently have visiting nurse or other home services: No Patient Tobacco Use Status: Never used Tobacco Assessment & Plan Assessment & Plan (1) Obesity: Code(s): E66.9 - Obesity, unspecified Qualifiers: Obesity type: due to excess calories Obesity classification: adult class 2 (BMI 35 - 39.9) Serious obesity comorbidity presence: with serious comorbidity Body mass index: BMI 38.0-38.9 Qualified Code(s): E66.01 - Morbid (severe) obesity due to excess calories; Z68.38 - Body mass index [BMI] 38.0-38.9, adult Plan: 1. Plan for lap sleeve gastrectomy including upper GI endoscopy. All tests has been completed and reviewed and the patient is cleared for the surgery. ?If diaphragmatic or ventral hernias are present at time of surgery, these will be repaired laparoscopically as well. Risks and complications were discussed in detail including possible conversion to an open procedure, anastomotic leak, bleeding requiring transfusion, small bowel obstruction, , DVT and pulmonary embolism, cardiac, or pulmonary complications, as nursing home complications such as anastomotic ulcer, insufficient weight loss and vitamin deficiencies. I emphasized the importance of close follow-up, adherence to instructions and good communication. So far she has proven to be an excellent communicator and very compliant with all our directions accomplishing a great weight loss. I believe that she is an excellent candidate and she is ready. 2. Preop prescriptions were provided and explained the purpose of each one. Need to be purchased preop. Start Pantoprazole now as you get it from the pharmacy, 1 pill per day. Sucralfate and Zofran are for after surgery as needed. 3. Bowel prep: please do 7 packets ?of Miralax mixing each one with a an 8oz glass of water, crystal light, gatorade zero, or propel ?on 07/31/23 and the same amount on 08/01/23. Continue the protein shakes during? the bowel prep. 4. Needs to purchase 1oz medicine cups . 5. Needs to purchase Children's liquid Tylenol for postop pain control. 6. Avoid aspirin, motrin, Advil, Aleve, Ibuprofen, Naproxyn. Tylenol is OK. 7. She needs to purchase the Celebrate 4:1 protein shakes from the hospital's gift shop. 8. Will do basic preop blood work-up any day between 07/27/23 and Monday07/28/23 fasting for 12 hours and is scheduled to see the Anesthesiologist prior to the day of surgery. 9. Importance of adherence to postop folllow-up and recommendations was underscored and she understands that. 10. Continue to avoid food and bars and continue with one Orgain protein shake (TWO scoops in 8oz almond milk) at 7am-9am and 5 Orgain protein shakes with ONE scoop EACh in 8oz almond milk at 10am-12pm, 1pm-3pm, 4pm-6pm, 7pm-9pm and 10pm-12am 11. No soups, broths or V8 12. The patient's?medical?history has been reviewed and they are considered low risk for post op DVT and therefore DVT prophylaxis is not considered necessary. Travel after surgery was reviewed. The patient has not disclosed any travel plans during the first 30 days after surgery and they have been advised that within the first 30 days after surgery any bus, plane, train or car travel over 2 hours in duration is contraindicated due to the possibility of developing blood clots from immobility. Any travel, needs to include periods of ambulation of 10 minutes in duration every 2 hours.? Patient was instructed to discuss any plans for travel during this period with their bariatric surgeon.? 13. Please take at the day of surgery the following medications: NONE 14. Stop any control pills and don't use them for one month after surgery 15. Absolutely no smoking or vaping, or marijuana until the surgery and for at least the first 4 weeks. Only nicotine patches are allowed. 16. Send me weight measurements on Monday and then on Monday08/02/23 the day of surgery before you go to the hospital. 17. Avoid any steroids by mouth for any reason. Let me know if someone prescribes them to you 18. These instructions supersede anything else you read in the handbook, anything you watched in videos or classes or you were told by any other provider. If there is any conflict, you follow the above instructions and nothing else. Orders: Orders Comprehensive Met. Panel Today E66.9 - Obesity, unspecified, R73.03 - Prediabetes Prothrombin Time INR Today E66.9 - Obesity, unspecified, R73.03 - Prediabetes Type and Screen Today E66.9 - Obesity, unspecified, R73.03 - Prediabetes Partial Thromboplastin Time Today E66.9 - Obesity, unspecified, R73.03 - Prediabetes C Reactive Protein Today E66.9 - Obesity, unspecified, R73.03 - Prediabetes TSH reflex Free T4 Today E66.9 - Obesity, unspecified, R73.03 - Prediabetes Lipid Panel Today E66.9 - Obesity, unspecified, R73.03 - Prediabetes Hemoglobin A1c Today E66.9 - Obesity, unspecified, R73.03 - Prediabetes Complete Blood Count Auto Diff Today E66.9 - Obesity, unspecified, R73.03 - Prediabetes Insulin Today E66.9 - Obesity, unspecified, R73.03 - Prediabetes Medications: New pantoprazole 40 mg PO DAILY 90 tabs 0RF K21.9 - Gastro-esophageal reflux disease without esophagitis sucralfate 10 mL PO BID 600 mL 2RF K21.9 - Gastro-esophageal reflux disease without esophagitis ondansetron Only take one every 12 hours as needed if you have nausea 4 mg PO Q12H 20 tabs 0RF nausea and vomiting R11.0 - Nausea polyethylene glycol 3350 (Miralax) Mix each packet with 8oz of water, Crystal light, or Gatorade zero, or Propel and do 7 packets on 07/31/23 and another 7 packets on 08/01/23 17 grams PO DAILY 14 ea 0RF Z01.818 - Encounter for other preprocedural examination Telehealth Telehealth Location of provider rendering services: practice address Location of patient: address on file Patient Identification confirmed using: Name, : Yes Telehealth method: voice only Patient verbally consented to treatment: Yes Patient verbally consented to billing insurance company: Yes Patient informed of any privacy concerns related to visit: Yes Minutes spent on Phone/Video with Pt.: 33 Coding Level of Care Code Tele Est Pt Level 4 (49570) Diagnoses Class 2 severe obesity due to excess calories with serious comorbidity and body mass index (BMI) of 38.0 to 38.9 in adult E66.01; Z68.38 Obesity type: due to excess calories Obesity classification: adult class 2 (BMI 35 - 39.9) Serious obesity comorbidity presence: with serious comorbidity Body mass index: BMI 38.0-38.9 Time Spent (min) 33
[2023-07-26 10:07] VITALS: BMI 37.8
== END 2023-07-26 10:14 | disposition home or self-care (01) ==
LOC: HO.HBS 08:18
PROVIDERS: PCP Internal Medicine; Visit Provider Surgery
DX: E66.01 Morbid (severe) obesity due to excess calories (principal); Z68.38 Body mass index [BMI] 38.0-38.9, adult
CPT/HCPCS: 99214

== ENCOUNTER → 2023-07-26 08:18 | Outpatient (BNVA) | payer MEDICAID, SELFPAY | PROVIDERS: PCP Internal Medicine; Visit Provider Surgery ==

== ENCOUNTER 2023-07-27 10:54 | Outpatient (REF) | payer MEDICAID, SELFPAY ==
[2023-07-27 12:19] LABS: Alanine Aminotransferase 17 U/L (0-31); Alkaline Phosphatase 94 U/L (39-117); Anion Gap 13 (12-20); Aspartate Amino Transferase 16 U/L (5-31); Bilirubin Total 0.7 mg/dL (0.0-1.0); Blood Urea Nitrogen 13 mg/dL (9-16); C Reactive Protein 2.68 mg/dL (< or = 0.50); Calcium 9.6 mg/dL (8.4-10.2); Carbon Dioxide 24 mmol/L (22-29); Chloride 107 mmol/L (96-108); Cholesterol 141 mg/dL (<200); Estimated Glomerular Filt Rate > 60; Glucose Random 89 mg/dL (60-115); HDL Cholesterol 37 mg/dL (>40); LDL Cholesterol Calculated 91 mg/dL (<100); Potassium 3.9 mmol/L (3.3-5.1); Sodium 140 mmol/L (135-145); Triglycerides 68 mg/dL (<150)
[2023-07-27 12:26] LABS: Insulin 12 uU/mL (2-29); TSH reflex Free T4 1.18 uIU/mL (0.32-4.0)
== END 2023-07-27 10:55 | disposition home or self-care (01) ==
LOC: HO.LAB 10:54
PROVIDERS: Absent Provider Internal Medicine; PCP Internal Medicine; Visit Provider Surgery
DX: E66.9 Obesity, unspecified (principal); R73.03 Prediabetes; E28.2 Polycystic ovarian syndrome; I10 Essential (primary) hypertension; M54.50 Low back pain, unspecified
CPT/HCPCS: 36415; 80053; 80061; 83036; 83525; 84443; 85025; 85610; 85730; 86140

== ENCOUNTER 2023-08-02 08:48 | Inpatient (IN) | payer MEDICAID, SELFPAY ==
[2023-07-25 15:07] VITALS: BMI 37.8
--- NOTE | 2023-07-29 00:10 | MHC.SHP ---
Pre-Procedural Eval Section A Date of Service: 07/29/23 The patient is an INPATIENT: Yes The History & Physical has been completed within 30 days and I have reviewed it.: Yes Section B Chief Complaint: Obesity, unspecified Relevant Family History (Specify if Yes): Yes Relevant Social History: None Present Medications: None Medical History: No relevant PMH History of Previous Operations: No relevant previous surgery Allergies: Allergies Allergy/AdvReac Type Severity Reaction Status Date / Time No Known Allergies Allergy Unknown Verified 07/26/23 09:47 [No Known Allergies*] Review of Systems Sugical H&P ROS: Negative: Constitution, Cardiovascular, Respiratory, Neurological, Psychiatric, Hem-Onc, Allergic/Immunologic, Gastrointestinal, Genitourinary, Musculoskeletal, Integumentary, Endocrine and Eyes/Ears/Nose/Throat Exam Surgical H&P Exam: Normal: HEENT, Normal: Heart, Normal: Lungs, Normal: Extremities, Normal: Abdomen, Normal: Skin and Normal: Neurological Plan Diagnosis/Plan: Unchanged I have reviewed the history and physical and performed a pertinent physical examination on my patient. No changes have occurred unless specified. Time Spent With Patient Time: Total time managing care of this patient today ____ minutes.
--- NOTE | 2023-08-01 10:09 | P.CONAN_ITS ---
Documented by User: Daina Rice NP 08/01/23 10:11 HPI - Anesthesia Eval Consult details Narrative: 38yo F for Gastrectomy Sleeve PMFSH Active Problems Active Problems: All Active Problems (Updated 07/26/23 @ 10:01 by Obdulio Davies MD) GERD (gastroesophageal reflux disease) (Acute) BMI 39.0-39.9,adult (Acute) Obesity (Acute) H. pylori infection (Acute) Zinc deficiency (Acute) Vitamin B12 deficiency (Acute) Vitamin D deficiency (Acute) Prediabetes (Acute) Back pain (Acute) Morbid obesity (Acute) Anxiety and depression (Acute) Otitis externa (Acute) Past Medical History Medical History GERD (gastroesophageal reflux disease) Shoulder pain, bilateral History of snoring Prediabetes Back pain Morbid obesity Anxiety and depression Otitis externa Surgical History Surgical History History of cataract surgery (~2016) Social History Social History Household Members: None Household Members Other:: 4 children Housing: Apartment Are you a primary manager respiratory care to a significant other at home: Yes (children, oldest 20 year old will assist post-op) Do you presently have visiting nurse or other home services: No Patient Tobacco Use Status: Never used Tobacco Use of substances other than those prescribed or required for medical reasons: No Currently Displaying Signs/Symptoms of Drug Intoxication Withdrawal: No Have you been hit, kicked, punched, or otherwise hurt by someone within the past year? If so, by whom?: No Do you feel safe in your current relationship?: No Current Relationship Is there a partner from a previous relationship who is making you feel unsafe now?: No Are you made to feel afraid or neglected: No Are you DNR?: No Advance Directives: No Advance Directives Information Provided: Yes Advance Directives on File: No Healthcare Proxy: No Do you have thoughts of harming others: None Do you have a plan to hurt others: No Plan Recently lost weight without trying: No How much weight loss: Not applicable Eating poorly because of decreased appetite: No Nutrition screen score: 0 Nutrition Risks: No Nutritional Risk Patient : No FDLMP: 07/17/2023 : No Poor oral hygiene: No Meds Allergies Allergy/AdvReac Type Severity Reaction Status Date / Time No Known Allergies Allergy Unknown Verified 08/02/23 08:56 [No Known Allergies*] Home Medications Medication Instructions Recorded Confirmed Last Taken Type melatonin 5 mg tablet 5 mg PO BEDTIME 10/13/20 07/26/23 Unknown History escitalopram oxalate 10 mg tablet 10 mg PO DAILY 03/29/23 08/02/23 07/26/23 History lorazepam 1 mg tablet 1 mg PO DAILY PRN Anxiety 03/29/23 08/02/23 07/26/23 History Exam Height,Weight and Vital Signs: Height 5 ft 4 in Weight 99.79 kg Pertinent Lab Results Pertinent Lab Results: Laboratory Tests 07/27/23 11:10 Blood Type O Positive Antibody Screen NEGATIVE Laboratory Tests 07/27/23 11:22 WBC 7.7 Hgb 13.6 Hct 41.8 Plt Count 195 Sodium 140 Potassium 3.9 Chloride 107 Carbon Dioxide 24 BUN 13 Creatinine 0.68 Narrative Narrative: EKG 03/2023 Vent. Rate : 069 BPM Atrial Rate : 069 BPM P-R Int : 160 ms QRS Dur : 102 ms QT Int : 392 ms P-R-T Axes : 024 -17 025 degrees QTc Int : 420 ms Normal sinus rhythm Normal ECG When compared with ECG of 02-DEC-2014 11:20, Heart rate has increased Assessment and Plan Assessment Anesthesia Assessment: Chart Reviewed Documented by User: Carolynn Ness MD 08/03/23 07:43 PMFSH Past Medical History Medical History GERD (gastroesophageal reflux disease) Shoulder pain, bilateral History of snoring Prediabetes Back pain Morbid obesity Anxiety and depression Otitis externa Family History Family history of problems with anesthesia: No Surgical History Surgical History History of cataract surgery (~2015) History of Problems with Anesthesia: No Social History Social History Household Members: None Household Members Other:: 4 children Housing: Apartment Are you a primary manager respiratory care to a significant other at home: Yes (children, oldest 20 year old will assist post-op) Do you presently have visiting nurse or other home services: No Patient Tobacco Use Status: Never used Tobacco Use of substances other than those prescribed or required for medical reasons: No Currently Displaying Signs/Symptoms of Drug Intoxication Withdrawal: No Have you been hit, kicked, punched, or otherwise hurt by someone within the past year? If so, by whom?: No Do you feel safe in your current relationship?: No Current Relationship Is there a partner from a previous relationship who is making you feel unsafe now?: No Are you made to feel afraid or neglected: No Are you DNR?: No Advance Directives: No Advance Directives Information Provided: Yes Advance Directives on File: No Healthcare Proxy: No Do you have thoughts of harming others: None Do you have a plan to hurt others: No Plan Recently lost weight without trying: No How much weight loss: Not applicable Eating poorly because of decreased appetite: No Nutrition screen score: 0 Nutrition Risks: No Nutritional Risk Patient : No FDLMP: 07/17/2023 : No Poor oral hygiene: No Meds Allergies Allergy/AdvReac Type Severity Reaction Status Date / Time No Known Allergies Allergy Unknown Verified 08/02/23 08:56 [No Known Allergies*] Home Medications Medication Instructions Recorded Confirmed Last Taken Type melatonin 5 mg tablet 5 mg PO BEDTIME 10/13/20 07/26/23 Unknown History escitalopram oxalate 10 mg tablet 10 mg PO DAILY 03/29/23 08/02/23 07/26/23 History lorazepam 1 mg tablet 1 mg PO DAILY PRN Anxiety 03/29/23 08/02/23 07/26/23 History Assessment and Plan Assessment Anesthesia Assessment: Anesthesia Plan Discussed and Chart Reviewed Final Anesthetic Review Family History of Problems with Anesthesia: No History of Problems with Anesthesia: No NPO: Yes ASA Class: III Final Preanesthetic Review: No Changes in Pt Med Stat, Meds/Allgs Chart Reviewed, Consent Obtained/Reviewed, Anes Risks/Benef Reviewed and DNR Form (If Appl.) Patient Risk: Intermediate Procedure Risk: Intermediate Anesthetic Plan Anesthetic Plan: GA Disposition: Standard PACU Documented by User: Medhat Muniz MD 08/02/23 09:54 PMFSH Past Medical History Medical History GERD (gastroesophageal reflux disease) Shoulder pain, bilateral History of snoring Prediabetes Back pain Morbid obesity Anxiety and depression Otitis externa Surgical History Surgical History History of cataract surgery (~2016) Social History Social History Household Members: None Household Members Other:: 4 children Housing: Apartment Are you a primary manager respiratory care to a significant other at home: Yes (children, oldest 20 year old will assist post-op) Do you presently have visiting nurse or other home services: No Patient Tobacco Use Status: Never used Tobacco Use of substances other than those prescribed or required for medical reasons: No Currently Displaying Signs/Symptoms of Drug Intoxication Withdrawal: No Have you been hit, kicked, punched, or otherwise hurt by someone within the past year? If so, by whom?: No Do you feel safe in your current relationship?: No Current Relationship Is there a partner from a previous relationship who is making you feel unsafe now?: No Are you made to feel afraid or neglected: No Are you DNR?: No Advance Directives: No Advance Directives Information Provided: Yes Advance Directives on File: No Healthcare Proxy: No Do you have thoughts of harming others: None Do you have a plan to hurt others: No Plan Recently lost weight without trying: No How much weight loss: Not applicable Eating poorly because of decreased appetite: No Nutrition screen score: 0 Nutrition Risks: No Nutritional Risk Patient : No FDLMP: 07/17/2023 : No Poor oral hygiene: No Meds Allergies Allergy/AdvReac Type Severity Reaction Status Date / Time No Known Allergies Allergy Unknown Verified 08/02/23 08:56 [No Known Allergies*] Home Medications Medication Instructions Recorded Confirmed Last Taken Type melatonin 5 mg tablet 5 mg PO BEDTIME 10/13/20 07/26/23 Unknown History escitalopram oxalate 10 mg tablet 10 mg PO DAILY 03/29/23 08/02/23 07/26/23 History lorazepam 1 mg tablet 1 mg PO DAILY PRN Anxiety 03/29/23 08/02/23 07/26/23 History Exam Airway Mallampati Class: III TM Dist: >3cm Neck ROM: Full Loose/Missing/Broken Teeth: No Heart: rrr+[id number] Lungs: cta B/L Assessment and Plan Final Anesthetic Review Assessment/Block/Sedation in SS: Assess/Block/Sedation-SS Anesthetic Plan Anesthetic Plan: Agree w/ Assess. and Plan
[2023-08-02] VITALS (20 sets, daily range): BP systolic 112–147; BP diastolic 58–81; PULSE 52–87; RESP 13–19; TEMP 36–36.6; O2SAT 93–100; BMI 35.5; BMI 35.6
[2023-08-02 09:14] LABS: UPreg QC Valid YES; Urine Pregnancy NEGATIVE (NEGATIVE)
[2023-08-02] MEDS: Lactated Ringers 1,000 ML 999 ML IV (09:18)
[2023-08-02] MEDS: Aprepitant 32 MG/4.4 ML VIAL IVPUSH (09:19)
[2023-08-02] MEDS: Lactated Ringers 1,000 ML 100 ML IVCONT ×2 (09:19→15:58)
--- NOTE | 2023-08-02 09:47 | PM.OP ---
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 The program is a phased program with a special focus on preoperative medical weight management to promote substantial weight loss and prepare the patients for the second phase of the program: bariatric surgery. The patient participated in an intensive weekly lifestyle ?intervention and exercise program during which the patient ?has lost between the initial office visit and the last preoperative visit 27.6 lbs, or 11.2% of initial actual body weight. It was deemed appropriate for the patient to now have bariatric surgery. In light of the current Covid-19 pandemic and the well documented strong association of obesity and increased risk of worse outcomes if infected with Covid-19 (REFERENCES:https://pubmed.ncbi.nlm.nih.gov/79452207/,?https://pubmed.ncbi.nlm.nih.gov/63139005/), any delay in undergoing bariatric surgery may lead to the patient's worsening health condition and increased?risk of more severe Covid-19 disease if infected. In addition a recent?study from [facility] published in [facility] on 07/19/2021 ([email or web address]) found that, among patients with obesity, substantial weight loss achieved with surgery was associated with improved outcomes of COVID-19 infection. The findings suggest that obesity can be a modifiable risk factor for the severity of COVID-19 infection. In addition, the patient met the BMI-criteria for bariatric surgery based on the BMI on initial presentation. The patient should not be penalized for achieving such weight loss because ?it is not sustainable long-term without surgical intervention and it was achieved in preparation for bariatric surgery ?under my direction and based on my published research ([email or web address]).[email or web address] and?https://www.soard.org/article/[email or web address](62)50830-X/pdf) ?that a 10% preoperative weight loss improves long-term weight loss after surgery and reduces perioperative complications.? Insurance carriers such as [facility] have endorsed my recommendations ?and have included in their policies criteria to include a 10% preoperative weight loss requirement. PROCEDURE: Esophago-gastroscopy,laparoscopic lysis of adhesions, laparoscopic sleeve gastrectomy and laparoscopic gastropexy INDICATIONS: This is a 38 year-old female who was electively scheduled for laparoscopic, possibly open sleeve gastrectomy. The risks and complications of the procedure were discussed with the patient in advance, particularly the possibility of ; pulmonary embolism; staple line leak; bleeding; GERD; cardiac, pulmonary, or renal complications; as well as long-term problems such as insufficient weight loss, vitamin deficiency, strictures, or ulcers. The patient understood all the risks, and was in agreement to proceed with surgery. DESCRIPTION OF PROCEDURE: After informed consent was obtained from the patient, the patient was given preoperative antibiotics, and was transferred to the operating room. After successful induction of general anesthesia, pneumatic compression devices were placed on both lower extremities. An upper endoscopy was performed next. The oropharynx and esophagus appeared to be within normal limits. There was no diaphragmatic hernia present consistent with the findings of the preoperative upper GI. The stomach was entered. Then after all fluid and air were suctioned and the stomach was fully decompressed, the scope was withdrawn and secured in the mid esophagus. The patient was then prepped and draped in the usual sterile manner, and abdominal access was established at the right upper quadrant with the Michelle technique. A 12 mm blunt port was inserted, and the abdomen was insufflated with CO2 to a pressure of 15 mmHg. Under direct visualization, additional ports were placed, specifically two 5 mm Versi-step ports to the left upper quadrant, and a 5 mm Versi-Step port to the right upper quadrant. 1% lidocaine plain was used to infiltrate all port sites as well as all fascia defects. Following that, the patient was placed in a steep reverse Trendelenburg position. An additional 5 mm port was placed to the right flank for the Mediflex retractor that was used to retract the left lobe of the liver. The gastro-esophageal fat pad was opened with the ultrasonic device (Thunderbeat, Olympus) and the anterior esophagus and hiatus were exposed. The angle of His was opened with the ultrasonic device the fundus of the stomach from any diaphragmatic and splenic attachments. I then opened the gastrocolic ligament between the transverse colon and the greater curvature of the stomach with the ultrasonic device to enter the lesser sac and facilitate the ligation of the short gastric vessels. I started at a mid-point along the greater curvature and using the Thunderbeat, all short gastric vessels were divided all the way to the angle of His until the left pavithra was completely dissected at its entirety. I then divided the gastro-colic ligament distally to a distance of about 3-4 cm proximal to the pylorus. There were extensive congenital adhesions between the pancreas and posterior gastric wall. Those were lysed completely with the ultrasonic device. Adhesiolysis took approximately 45 min to complete. The stomach was then divided transversely with three Endo ANIRUDH-45 purple and three ANIRUDH-60 articulating purple loads using the SUGNIA stapler and loads. Every effort was made that the gastric sleeve had a tubular shape and an even caliber throughout. Once the sleeve resection was completed, the staple line of the gastric sleeve was reinforced with Hemoclips. The resected stomach was retrieved without difficulty from the Michelle port. A gastropexy was then performed in order to prevent postoperative GERD and partial gastric volvulus. Several interrupted 2.0 Surgidac sutures were placed between the sleeve's staple line and the previously divided greater omentum and gastro-colic ligament using the Endo-Stitch device. ?An upper endoscopy was performed. There was no narrowing at the GE junction. The scope was easily advanced all the way to the pylorus which was clearly visualized. There was no narrowing anywhere and the sleeve's caliber was even throughout. The sleeve's staple line was inspected and there was no evidence of ischemia, bleeding or dehiscence. At that point the gastroscope was withdrawn from the patient?s mouth while we were decompressing the bowel and the stomach from any remaining air. I looked into the lesser sac to see how the sleeve was situating and it was situating well. There was no bleeding from the staple line, spleen, or short gastric vessels. The Mediflex retractor was removed, and the undersurface of the liver was inspected and there was no bleeding. The patient was placed in supine position. I closed the fascial defect of the 12 mm port site with a figure of eight #1 Polysorb suture. Then 30cc Ropivacaine plain with 10 mg of Dexamethasone were used to infiltrate the fascial closure as well as all skin incisions. A total of 7ml Zynrelef was applied in the Michelle wound. At this point, the abdomen was deflated, all ports were removed under direct vision, and no bleeding was noted from any of the port sites. The skin incisions were irrigated with saline and were closed with 4-0 absorbable monofilament sutures. Steri-Strips and OpSites were used to cover all incisions. The patient was extubated and was transferred in stable condition to the recovery room for further care. I was present and performed all aguiar parts of the procedure. Leon was the administrative library assistant. There were no residents to assist with this case. Lewis Davies MD, PhD, FACS Surgeon: Obdulio Davies MD Anesthesia: GETA, local and other (TAP block & 7ml Zynrelef) Was an Outside Medical Sales Representative used for this Procedure?: No Outside Medical Sales Representative: Camilla Quintero Estimated blood loss (mL): 10 IV fluids (mL): 2,500 Urine output (mL): 0 (No Coto to record output) Pathology: other (Stomach) Condition: stable Disposition: PACU
--- NOTE | 2023-08-02 09:49 | PM.PNGS ---
Subjective Subjective Date of Service: 08/03/23 Interval history: Feels well. Mild incisional pain. She is tolerating phase 1 bariatric diet Physical Exam Vital Signs: Vital Signs: Last Vital Signs Temp 97.5 F 08/02/23 09:23 Pulse 87 08/02/23 09:23 Resp 16 08/02/23 09:23 BP 127/80 08/02/23 09:23 Pulse Ox 99 08/02/23 09:23 O2 Del Method Room Air 08/02/23 09:23 BMI result Body Mass Index 35.5 GI: Inspection: Yes normal to inspection, Yes incision (clean, dry and intact) and Yes obesity Palpation (GI): Soft to palpation Extrem: Right lower extremity: normal to inspection (no calf tenderness) Left lower extremity: normal to inspection (no calf tenderness) Objective Data Active Medications Fentanyl (Fentanyl Citrate/Pf 100 Mcg/2 Ml Vial) 25 mcg IVPUSH Q5M PRN; Protocol PRN Reason: Pain, Moderate(Pain Scale 4-6) Hydromorphone HCl (Hydromorphone Hcl 0.5 Mg/0.5 Ml Syringe) 0.25 mg IVPUSH Q5M PRN; Protocol PRN Reason: Pain, Severe (Pain Scale 7-10) Lactated Ringer's (Lr) 1,000 mls @ 100 mls/hr IVCONT .Q10H [facility] [place] Last Admin: 08/02/23 09:19 Dose: 100 mls/hr Documented By: MARK Lactated Ringer's (Lr) 1,000 mls @ 999 mls/hr IV .Q1H1M [facility] [place] Stop: 08/02/23 11:00 Last Admin: 08/02/23 09:18 Dose: 999 mls/hr Documented By: MARK Ondansetron HCl (Ondansetron Hcl 4 Mg/2 Ml Vial) 4 mg IVPUSH ONCE PRN PRN Reason: Nausea and Vomiting Labs 08/03/23 05:56 08/03/23 05:56 Labs: Laboratory Results - last 24 hr 08/02/23 08:55 Urine Test NEGATIVE Procedures Date of Service Date of Service: 08/03/23 Progress Note: A&P Assessment and plan (1) Obesity: Status: Acute Assessment and Plan: s/p laparoscopic sleeve gastrectomy, lysis of adhesions and gastropexy Doing well Will check am labs and if OK the patient will be discharged home (2) BMI 37.0-37.9, adult: Status: Inactive (3) GERD (gastroesophageal reflux disease): Status: Acute (4) Prediabetes: Status: Acute (5) Back pain: Status: Inactive (6) Anxiety and depression: Status: Acute (7) S/P laparoscopic sleeve gastrectomy: Status: Acute (8) Congenital intra-abdominal adhesions: Status: Acute Time Spent With Patient Time: Total time managing care of this patient today ____ minutes. Quality Stroke Does the patient have a stroke diagnosis?: No VTE Prior VTE?: No VTE Risk Level:: Surgical - moderate VTE Device Contraindication: N/A - Device Ordered VTE Drug Contraindication: Treatment Not Indicated
--- NOTE | 2023-08-02 10:08 | P.DS_ITS ---
DS: Providers Provider Date of Service: 08/03/23 Date of admission: 08/02/23 08:48 Primary care physician: Unknown Physician DS: Diagnosis Discharge Diagnosis (1) Obesity: Status: Acute (2) BMI 37.0-37.9, adult: Status: Inactive (3) GERD (gastroesophageal reflux disease): Status: Acute (4) Prediabetes: Status: Acute (5) Back pain: Status: Inactive (6) Anxiety and depression: Status: Acute DS: Summary Hospital Course Hospital Course: ADMITTING DIAGNOSIS: morbid obesity, GERD, pre DM DISCHARGE DIAGNOSIS: same, s/p laparoscopic sleeve gastrectomy PAST SURGICAL HISTORY: none PROCEDURE: upper endoscopy, laparoscopic sleeve gastrectomy DISCHARGE SUMMARY: History of Present Illness: The patient is a 38 year-old woman with a BMI of 42.1 kg/m2 and associated co- morbidities as described above. The patient had extensive work-up, lost 25.8 lbs preoperatively and was electively scheduled for laparoscopic, possible open sleeve gastrectomy and gastropexy. Risks and complications of the surgery were discussed with the patient in advance, particularly the possibility of , pulmonary embolism, anastomotic leak, bleeding, bowel injury, GERD, cardiac, renal or pulmonary complications. The patient understood all the risks and was in agreement with the surgical plan. Hospital Course: The patient underwent an uneventful laparoscopic sleeve gastrectomy with gastropexy on the day of admission. Postoperatively, the patient was transferred to the surgical floor. The patient received IV Acetaminophen and IV dilaudid for pain control. Patient was started on bariatric phase 1 diet POD #0. On postoperative day one, the patient was feeling well without nausea, vomiting, fevers, or tachycardia. The patient had some mild incisional pain and the abdomen was soft. On the morning of postoperative day one, the patient was continued on 1 ounce of water or ice every half hour. During the day, the patient did fairly well, having some incisional pain, but able to ambulate adequately and to tolerate liquids well. Since the patient is doing well, we decided that the patient was ready to be discharged. The patient was given instructions to follow-up with me next week and to call my office for any fever over 101, persistent abdominal pain, nausea, vomiting, GERD, symptoms of DVT such as calf tenderness, or leg swelling, or pulmonary embolism such as chest pain or shortness of breath. The patient was also instructed to drink 40-60 ounces of liquids per day using the 1-ounce cups. The patient had been given prescriptions for Tylenol for pain, Zofran prn for nausea, and pantoprazole and carafate previously. The patient was encouraged to ambulate and use the incentive spirometer. The patient was allowed to shower, but no baths, and encouraged to stay active at home. All of these instructions were given to the patient personally. All questions were answered and the patient understood all instructions, the instructions were also given to the patient in print. Time Attestation Discharge coordination time: Less than 30 minutes Quality: Safe Use of Opioids Does Pt have an Active Cancer Diagnosis on the Problem List?: No Quality: Stroke Does the patient have a stroke diagnosis?: No Physical Exam Vital Signs: Vital Signs: Last Vital Signs Temp 97.5 F 08/02/23 09:23 Pulse 87 08/02/23 09:23 Resp 16 08/02/23 09:23 BP 127/80 08/02/23 09:23 Pulse Ox 99 08/02/23 09:23 O2 Del Method Room Air 08/02/23 09:23 BMI result Body Mass Index 35.5 DS: Data Data Completed and Pending Labs on day of discharge: Laboratory Results - last 24 hr 08/02/23 08:55 Urine Test NEGATIVE Discharge Plan Discharge Anticipated Discharge Date/Time: 08/03/23 10:06 Patient Disposition: Home, Self-Care Discharge Diagnosis: s/p sleeve gastrectomy Referrals: Physician,Unknown J [Primary Care Provider] - 1 Week Discharge Medications: Continued fmxwtlzd-[id number]-WW 3.5-10,000-1 mg/mL-unit/mL-% solution 4 drp otic (ears) Q8H 7 Days Qty: 10 0RF escitalopram oxalate 10 mg tablet 10 mg PO DAILY lorazepam 1 mg tablet 1 mg PO DAILY PRN (Reason: Anxiety) pantoprazole 40 mg tablet,delayed release (DR/EC) 40 mg PO DAILY Qty: 90 0RF sucralfate 100 mg/mL suspension 10 ml PO BID Qty: 600 2RF ondansetron 4 mg tablet,disintegrating 4 mg PO Q12H Qty: 20 0RF Rx Instructions: Only take one every 12 hours as needed if you have nausea Held melatonin 5 mg tablet 5 mg PO BEDTIME Hold Instructions: Resume on 08/07/23. Discontinued zinc gluconate 30 mg tablet 15 mg PO DAILY Qty: 30 4RF mecobalamin (vitamin B12) 1,000 mcg tablet,disintegrating 1,000 mcg sublingual DAILY Qty: 30 2RF Rx Instructions: place tablet under tongue and allow to dissolve for at least30 secs before swallowing polyethylene glycol 3350 [Miralax] 17 gram powder in packet 17 g PO DAILY Qty: 14 0RF Rx Instructions: Mix each packet with 8oz of water, Crystal light, or Gatorade zero, or Propel and do 7 packets on 07/31/23 and another 7 packets on 08/01/23 Discharge Orders: Discharge Order (Routine); Ordered 08/03/23 Ordered By: Obdulio Davies Activity on Discharge: No heavy lifting Stand Alone Forms: Patient Portal Discharge page Care Plan Goals: weight loss Health Concerns: morbid obesity Plan of Treatment: No tub baths, sex or returning to work until discussed at first post op appointment. No exercise, alcohol, tobacco or illegal drug use. Continue to use incentive spirometer hourly while awake. Walk in home for 5- 10 minutes every 2 hours during the first week. Continue phase 1 diet today and start phase 2 diet tomorrow morning. Follow all instructions in the bariatric handbook and call with any questions. 1. Please call your doctor or come back to the emergency room should any new symptoms arise. 2. You will receive a courtesy call from [facility] 24-48 hours after discharge. 3. Activity: abstain from alcohol, practice limited stair climbing, no bending, no driving, no exercise, no illicit substances, no lifting, no sex, no tub bath, no work. 4. Diet: continue as discussed with bariatric team.. 5. Dressing Change/Wound Care: Do not change or remove surgical dressings unless they are wet or soiled. 6. Call your doctor if: - Your temperature exceeds 101.5 F - You experience excessive pain or swelling - You have an unexpected reaction to medication - You have excessive bleeding - You experience continued vomiting/nausea - Your incision begins to separate - Your incision shows signs of infection such as increased redness, swelling, excessive pain, heat, or drainage (light blood or clear fluid is normal) 7. General instructions: No lifting greater than 5 lbs for 1 week and not more than 20lbs the next 3?weeks. No driving until seen at the office in 5-7 days after surgery. If you do not move your bowels in the next 2 days, please tell?Dr. Davies. Please walk around your home every hour or two to prevent blood clots from forming in your legs. You do not need to wake from sleeping to walk. Please sleep in a bed or couch to prevent kinking at the hips and knees. Please take your incentive spirometer (your lung catalogue illustrator) home with you and use it for the next few days to prevent pneumonia. You may shower, no hot tubs, baths or swimming pools.?Please follow the post op diet instructions you are?given by Dr Shar valverde? and text me daily at 5-6pm for an update.?If you have any issues or concerns or questions please communicate this to him via text.? The Celebrate shakes have all of the bariatric vitamins you need if you consume these shakes. If you are drinking other protein shakes, you will need to purchase the Celebrate multivitamins and calcium that are available in the hospital gift shop on the first floor of the [facility].??Do not take anything without first discussing with Dr Davies. Please make sure you are consuming at least 40 ounces of fluids per day starting the?day AFTER your discharge from the hospital. Always drink 1-2 ml per minute using the 5ml?syringe. If you drink faster you may experience?bloating,?gas pain, burping, nausea or heartburn. In that case please slow down your pace and use the syringe to?understand better the?proper?pace and volume of drinking. Do not hesitate to contact the office with any questions at . The patient's medical history has been reviewed and they are considered low risk for post op DVT and therefore DVT prophylaxis is not considered necessary. Travel after surgery was reviewed. The patient has not disclosed any travel plans during the first 30 days after surgery and they have been advised that within the first 30 days after surgery any bus, plane, train or car travel over 2 hours in duration is contraindicated due to the possibility of developing blood clots from immobility. Any travel, needs to include periods of ambulation of 10 minutes in duration every 2 hours. The patient was instructed to discuss any plans for travel during this period with their bariatric surgeon. Assessment: stable, post op sleeve gastrectomy
--- NOTE | 2023-08-02 10:59 | PHA.MEDREC ---
Pharmacy Consult ? Medication Reconciliation Pharmacy has completed the medication reconciliation. Reviewed med rec done by nursing
[2023-08-02 13:06] LABS: Hematocrit 38.6 % (37.0-47.0); Hemoglobin 12.8 g/dl (12.0-16.0)
[2023-08-02 13:16] LABS: Anion Gap 17 (12-20); Blood Urea Nitrogen 10 mg/dL (9-16); Calcium 8.8 mg/dL (8.4-10.2); Carbon Dioxide 22 mmol/L (22-29); Chloride 103 mmol/L (96-108); Creatinine Clr Calc Pharmacy 114.9; Estimated Glomerular Filt Rate > 60; Glucose Random 99 mg/dL (60-115); Potassium 4.3 mmol/L (3.3-5.1); Sodium 138 mmol/L (135-145)
[2023-08-02] MEDS: Famotidine/PF 20 MG/2 ML VIAL IVPUSH ×2 (15:58→21:01)
[2023-08-02] MEDS: ceFAZolin Sodium/Dextrose,Iso 2 GM/50 ML PIGGYBACK IV (15:58)
[2023-08-02] MEDS: 0.9 % Sodium Chloride Flush 3 ML SYRINGE IVFLUSH ×2 (15:59→21:01)
[2023-08-02] MEDS: Acetaminophen 1,000 MG/100 ML PIGGYBACK 16.7 MG IV ×2 (17:26→22:58)
[2023-08-03] MEDS: Lactated Ringers 1,000 ML 100 ML IVCONT (01:13)
[2023-08-03 04:00] VITALS: BP 108/59; PULSE 51; RESP 17; TEMP 36.1; O2SAT 94
[2023-08-03] MEDS: Acetaminophen 1,000 MG/100 ML PIGGYBACK 16.7 MG IV (04:51)
[2023-08-03 07:01] LABS: MANUAL DIFF FLAG NO
[2023-08-03 07:14] LABS: Basophils Percent Auto 0.1 % (0-2); Imm Gran Abs Auto 0.05 X10*3/uL (0.00-0.03); Imm Gran Pct Auto 0.6 % (0.0-0.4); Lymphocytes Absolute Auto 1.2 X10*3/uL (1.2-4.9); Lymphocytes Percent Auto 13.3 % (20-40); Mean Corpuscular HGB Conc 33.3 g/dl (31.0-35.0); Mean Corpuscular Hemoglobin 27.4 pg (27.0-33.0); Mean Corpuscular Volume 82.2 fL (80.0-98.0); Mean Platelet Volume 11.6 fL (9.4-12.3); Monocytes Absolute Auto 0.3 X10*3/uL (0.1-1.2); Monocytes Percent Auto 3.5 % (2-11); Neutrophils Absolute Auto 7.5 x10*3/uL (2.0-8.3); Neutrophils Percent Auto 82.5 % (45-73); Platelet Count 219 X10*3/uL (160-400); Red Blood Count 4.38 X10*6/uL (4.20-5.50); Red Cell Distribution Width 13.2 % (11.0-16.0); White Blood Count 9.1 X10*3/uL (4.8-10.8)
[2023-08-03 07:19] VITALS: BP 103/56; PULSE 50; RESP 17; TEMP 36.1; O2SAT 96
[2023-08-03 07:34] LABS: Anion Gap 14 (12-20); Blood Urea Nitrogen 8 mg/dL (9-16); Calcium 9.2 mg/dL (8.4-10.2); Carbon Dioxide 21 mmol/L (22-29); Chloride 105 mmol/L (96-108); Creatinine Clr Calc Pharmacy 125.3; Estimated Glomerular Filt Rate > 60; Glucose Random 97 mg/dL (60-115); Potassium 4.2 mmol/L (3.3-5.1); Sodium 136 mmol/L (135-145)
[2023-08-03] MEDS: Famotidine/PF 20 MG/2 ML VIAL IVPUSH (07:48)
--- NOTE | 2023-08-03 09:33 | MHC.CM.PN ---
PT REPORTS SHE LIVES AT HOME WITH HER 4 CHILDREN, SHE SAYS THE [facility] IN 20 AND WILL ASSIST WITH THE OTHERS WHILE SHE RECOVERS PATIENT DENIES ANY USE OF DME OR HAVING ANY HOME OR COMMUNITY SERVICES PT DECLINES TO COMPLETE A HCP AND SAYS DON BLANCO IS HER PCP PT WILL DC HOME TODAY WITH NO SERVICES VIA [facility]UT[facility] TRANSPORT
--- NOTE | 2023-08-03 15:19 | HO.POSTANES ---
Post Anesthesia Evaluation Post Anesthesia Evaluation Date of Service: 08/03/23 Vital Signs: Vital Signs Temp Pulse Resp BP Pulse Ox O2 Del Method 08/03/23 08:04 Room Air 08/03/23 08:04 Room Air 08/03/23 07:19 96.9 F 50 17 103/56 L 96 Room Air 08/03/23 04:00 96.9 F 51 17 108/59 L 94 Room Air Anesthesia: General Endotracheal-GETA Mental Status: Awake Pain Control: Satisfactory Nausea/Vomiting: None Hydration: Adequate Anesthesia-Related Issues: No Anes. Related Issues
== END 2023-08-03 10:44 | disposition home or self-care (01) | DRG 403 ==
LOC: HO.SSSA 10:06 → HO.S3 14:56
PROVIDERS: Nurse Practitioner; Physician Assistant; Admitting Provider Surgery; PCP Internal Medicine; Visit Provider Surgery
PROC: (CPT 43845; principal; 2023-08-02 10:10)
DX: E66.01 Morbid (severe) obesity due to excess calories (principal); Q43.3 Congenital malformations of intestinal fixation; F32.A Depression, unspecified; K21.9 Gastro-esophageal reflux disease without esophagitis; Z68.37 Body mass index [BMI] 37.0-37.9, adult; R73.03 Prediabetes; G47.00 Insomnia, unspecified; F41.9 Anxiety disorder, unspecified; M54.9 Dorsalgia, unspecified; Z79.899 Other long term (current) drug therapy
CPT/HCPCS: 36415; 80048; 80053; 80061; 81025; 83036; 83525; 84443; 85014; 85018; 85025; 85610; 85730; 86140; 86850; 86900; 86901; 88305; 88307; 88342; 99024; A4649; C9088; C9145; J0131; J0690; J1100; J1170; J2250; J2371; J2405; J2704; J2795; J3010; J7120

== ENCOUNTER → 2023-08-02 08:48 | Outpatient (BNV) | payer MEDICAID, SELFPAY | PROVIDERS: Admitting Provider Surgery; Visit Provider Surgery | DX: E66.9 Obesity, unspecified (principal); Z68.37 Body mass index [BMI] 37.0-37.9, adult | CPT/HCPCS: 43659; 43775; 99238 ==

== ENCOUNTER 2023-08-09 11:48 | Outpatient (AMB) | payer MEDICAID, SELFPAY ==
--- NOTE | 2023-08-09 13:10 | MHC.OFFVISWM ---
Intake VS Expanded 08/09/23 13:19 BP 120/60 Blood Pressure Location Rt brachial Blood Pressure Position Sitting Pulse 66 Pulse Source Pulse Oximeter Temp 97.6 F Temperature Source Temporal Artery Scan Pulse Oximetry 99 Oxygen Delivery Method Room Air Height 5 ft 4 in Weight 201 lb BMI 34.5 Body Fat % 43.6 Body Fat Mass 87.6 Fat Free Mass 113.4 Visceral Fat Rating 10.0 Body Water % 40.4 Body Water Mass 81.2 Muscle Mass/Score 107.6 Basal Metabolic Rate/Score 1,596 Intake Visit Reasons: (OV) PO LSG 08/02/23 Allergies No Known Allergies [No Known Allergies*] Allergy (Unknown, Verified 08/09/23 13:10) HPI HPI Comments History of Present Illness Details Patient is a pleasant 38-year-old female who returns to the office today in follow-up. She is 7 days post laparoscopic sleeve gastrectomy. Tolerating 3 celebrate 4 in 1 shakes with 1 scoop each. Positive bowel movement. Drinking 40 oz of fluid total per day. [facility] Medical History (Updated 08/04/23 @ 00:02 by Harini Bob) BMI 37.0-37.9, adult GERD (gastroesophageal reflux disease) Shoulder pain, bilateral History of snoring Prediabetes Back pain Morbid obesity Anxiety and depression Otitis externa Surgical History (Updated 08/09/23 @ 13:12 by Noelle Daley CMA) S/P laparoscopic sleeve gastrectomy History of cataract surgery (~2015) Social History Household Members: None Household Members Other:: 4 children Housing: Apartment Are you a primary early breastfeeding care specialist to a significant other at home: Yes (children, oldest 20 year old will assist post-op) Do you presently have visiting nurse or other home services: No Patient Tobacco Use Status: Never used Tobacco service: No Physical Exam GI Inspection: Yes incision (Clean, dry, intact.) Assessment & Plan Assessment & Plan (1) S/P laparoscopic sleeve gastrectomy: Code(s): Z98.84 - Bariatric surgery status Plan: POD 7 s/p LSG on 08/02/[address] Davies Weight loss prior to surgery was 26.5 pounds or 10.7 % TBWL. Original weight on 03/29/2023 was 245.8 pounds and op weight was 219.3 pounds. Be sure to text Dr Davies exactly 1 week after surgery your weight from your home scale so he can adjust your meal plan. Continue meal plan until f/u w Tyler in 2 weeks May shower, no submersion in bath for another week Continue abdominal binder with activity and exercise for the next 2 weeks. Exercise prior to surgery was stationary bike, may resume No abdominal exercises for 6 weeks post operatively Will be emailed link to post op video for review Reminded of the pace of drinking, 2 mL per minute, 1 oz/15 min. Coding Level of Care Code Global (62743) Diagnoses S/P laparoscopic sleeve gastrectomy Z98.84
[2023-08-09 13:19] VITALS: BP 120/60; PULSE 66; TEMP 36.4; O2SAT 99; BMI 34.5
== END 2023-08-09 14:08 | disposition home or self-care (01) ==
PROVIDERS: PCP Internal Medicine; Visit Provider Physician Assistant Surgical
DX: E66.9 Obesity, unspecified (principal); Z68.34 Body mass index [BMI] 34.0-34.9, adult; Z90.3 Acquired absence of stomach [part of]; Z98.84 Bariatric surgery status
CPT/HCPCS: 99024

== ENCOUNTER → 2023-08-09 11:48 | Outpatient (BNVA) | payer MEDICAID, SELFPAY | PROVIDERS: PCP Internal Medicine; Visit Provider Physician Assistant Surgical | DX: Z98.84 Bariatric surgery status (principal) | CPT/HCPCS: 99212 ==

== ENCOUNTER 2023-08-30 09:57 | Outpatient (AMB) | payer MEDICAID, SELFPAY ==
--- NOTE | 2023-08-30 10:20 | MHC.OFFVISWM ---
Intake VS Expanded 08/30/23 10:29 BP 132/66 Blood Pressure Location Rt brachial Blood Pressure Position Sitting Pulse 71 Pulse Source Pulse Oximeter Temp 96.6 F L Temperature Source Temporal Artery Scan Pulse Oximetry 99 Oxygen Delivery Method Room Air Height 5 ft 4 in Weight 191 lb 12.8 oz BMI 32.9 Body Fat % 43.2 Body Fat Mass 82.6 Fat Free Mass 109.0 Visceral Fat Rating 9.0 Body Water % 40.6 Body Water Mass 77.8 Muscle Mass/Score 103.4 Basal Metabolic Rate/Score 1,535 Intake Visit Reasons: (OV) PO LSG 08/02/23 Project Portfolio Analyst Required: No Allergies No Known Allergies [No Known Allergies*] Allergy (Unknown, Verified 08/30/23 10:24) Medication List - Last Reconciled 08/30/23 by VICKY Tanner escitalopram oxalate 10 mg PO DAILY lorazepam 1 mg PO DAILY PRN pantoprazole 40 mg PO DAILY sucralfate 10 mL PO BID HPI HPI Comments History of Present Illness Details This?a?38?yo female who is s/p LSG without hiatal hernia repair on?08/02/2023. Presents for 1 month post op visit. Weight today is 191.8 pounds, with a BMI of 32.9. There has been a 54 pound weight loss,(initial weight 245.8 pounds) since starting the program on 03/29/2023 reflecting a 21.9 % total body weight loss and a weight loss of 27.5 pounds since surgery (operative weight 219.3 pounds) reflecting a 12.5 % TBWL since surgery. No complaints of nausea, emesis, abdominal pain or reflux. Aside from diarrhea, feels well She states that she has developed diarrhea with the shakes that she is doing. She is using both the celebrate 4 in 1 and rebuild formula. She was using the celebrate rebuild before surgery and did not have difficulty. She states that the diarrhea started approximately 1 week ago. She had been on the celebrate 4 in 1 and the rebuild for approximately a week or 2 before the diarrhea started. She is additionally using almond milk which she had done prior to surgery. She has started taking Imodium, day 2 Present meal plan includes: 2 celebrate 4 in 1 shakes 2 scoops each, 8-10, 11-1 Celebrate rebuild 2-4 ZP bar 5-8 pm 16 oz water ? Exercise routine includes: stationary bike 300 carmen daily [facility] Medical History (Updated 08/04/23 @ 00:02 by Harini Bob) BMI 37.0-37.9, adult GERD (gastroesophageal reflux disease) Shoulder pain, bilateral History of snoring Prediabetes Back pain Morbid obesity Anxiety and depression Otitis externa Surgical History S/P laparoscopic sleeve gastrectomy History of cataract surgery (~2016) Social History Household Members: None Household Members Other:: 4 children Housing: Apartment Are you a primary insurance healthcare representative to a significant other at home: Yes (children, oldest 20 year old will assist post-op) Do you presently have visiting nurse or other home services: No Patient Tobacco Use Status: Never used Tobacco service: No Physical Exam Const General: healthy appearing and no acute distress Resp Effort & Inspection: normal respiratory effort Auscultation: clear to auscultation bilaterally Cardio Rate: regular rate Rhythm: regular rhythm GI Auscultation: normal bowel sounds Extrem General: Yes normal to inspection Assessment & Plan Assessment & Plan (1) S/P laparoscopic sleeve gastrectomy: Code(s): Z98.84 - Bariatric surgery status Plan: Patient will continue current meal plan, Imodium and if she has persistent loose stools, consideration for removal of the celebrate 4 and 1 as this seems to be the only new product that she is taking. Strongly encouraged to increase fluid intake given loose stools. Continue exercise. Return to clinic in 2 weeks. Coding Level of Care Code Global (24929) Diagnoses S/P laparoscopic sleeve gastrectomy Z98.84
[2023-08-30 10:29] VITALS: BP 132/66; PULSE 71; TEMP 35.9; O2SAT 99; BMI 32.9
== END 2023-08-30 10:47 | disposition home or self-care (01) ==
PROVIDERS: PCP Internal Medicine; Visit Provider Physician Assistant Surgical
DX: E66.9 Obesity, unspecified (principal); Z68.32 Body mass index [BMI] 32.0-32.9, adult; Z90.3 Acquired absence of stomach [part of]; Z98.84 Bariatric surgery status
CPT/HCPCS: 99024

== ENCOUNTER → 2023-08-30 09:57 | Outpatient (BNVA) | payer MEDICAID, SELFPAY | PROVIDERS: PCP Internal Medicine; Visit Provider Physician Assistant Surgical | DX: Z98.84 Bariatric surgery status (principal) | CPT/HCPCS: 99212 ==

== ENCOUNTER 2023-09-19 13:51 | Outpatient (AMB) | payer MEDICAID, SELFPAY ==
--- NOTE | 2023-09-19 13:40 | A.OFFVIS_ITS ---
Intake VS Expanded 09/19/23 13:41 Height 5 ft 4 in Weight 186 lb BMI 31.9 Intake Visit Reasons: (OV) PO LSG 08/02/23 Business Programmer Required: No Allergies No Known Allergies [No Known Allergies*] Allergy (Unknown, Verified 08/30/23 10:24) Medication List - Last Reconciled 09/19/23 by VICKY Tanner escitalopram oxalate 10 mg PO DAILY lorazepam 1 mg PO DAILY PRN pantoprazole 40 mg PO DAILY sucralfate 10 mL PO BID HPI HPI Comments History of Present Illness Details This?a?38?yo female who is s/p LSG without hiatal hernia repair on?08/02/2023. Presents for 6 weeks post op visit. Weight today is 186 pounds, with a BMI of 31.9. There has been a 59.8 pound weight loss,(initial weight 245.8 pounds) since starting the program on 03/29/2023 reflecting a 24.3 % total body weight loss and a weight loss of 33.3 pounds since surgery (operative weight 219.3 pounds) reflecting a 15.1 % TBWL since surgery. No complaints of nausea, emesis, abdominal pain or reflux. Aside from diarrhea, feels well She states that her diarrhea has resolved. She continues the rebuild and 4 in 1, and is satisfied with the current meal plan. Present meal plan includes: 2 celebrate 4 in 1 shakes 2 scoops each, 8-10, 11-1 Celebrate rebuild 1 scoop 2-4 ZP bar 5-8 pm 32 oz water? Exercise routine includes: stationary bike 175 carmen x 2, 5 days per week [facility] Medical History (Updated 08/04/23 @ 00:02 by [facility] Daevangelina) BMI 37.0-37.9, adult GERD (gastroesophageal reflux disease) Shoulder pain, bilateral History of snoring Prediabetes Back pain Morbid obesity Anxiety and depression Otitis externa Surgical History S/P laparoscopic sleeve gastrectomy History of cataract surgery (~2015) Social History Household Members: None Household Members Other:: 4 children Housing: Apartment Are you a primary client care representative to a significant other at home: Yes (children, oldest 20 year old will assist post-op) Do you presently have visiting nurse or other home services: No Patient Tobacco Use Status: Never used Tobacco service: No Assessment & Plan Assessment & Plan (1) S/P laparoscopic sleeve gastrectomy: Code(s): Z98.84 - Bariatric surgery status Plan: Overall, patient is doing well. She will continue her current meal plan. We discussed increasing the exercise to 200 calories twice daily if she is going to do it for 5 days per week. She certainly may try to increase to 6 days per week if she is able. We will have her return to the office in approximately 3 weeks' time, encouraged to text weekly her weight and if she has any questions or concerns. Telehealth Telehealth Location of provider rendering services: practice address Location of patient: address on file Patient Identification confirmed using: Name, : Yes Telehealth method: voice only Patient verbally consented to treatment: Yes Patient verbally consented to billing insurance company: Yes Patient informed of any privacy concerns related to visit: Yes Minutes spent on Phone/Video with Pt.: 15 Coding Level of Care Code Global (64550) Diagnoses S/P laparoscopic sleeve gastrectomy Z98.84
[2023-09-19 13:41] VITALS: BMI 31.9
== END 2023-09-19 13:51 | disposition home or self-care (01) ==
LOC: HO.HBS 13:51
PROVIDERS: PCP Internal Medicine; Visit Provider Physician Assistant Surgical
DX: E66.9 Obesity, unspecified (principal); Z68.31 Body mass index [BMI] 31.0-31.9, adult; Z90.3 Acquired absence of stomach [part of]; Z98.84 Bariatric surgery status
CPT/HCPCS: 99024

== ENCOUNTER → 2023-09-19 13:51 | Outpatient (BNVA) | payer MEDICAID, SELFPAY | PROVIDERS: PCP Internal Medicine; Visit Provider Physician Assistant Surgical | DX: Z98.84 Bariatric surgery status (principal) | CPT/HCPCS: 99212 ==

== ENCOUNTER 2023-10-10 13:10 | Outpatient (AMB) | payer MEDICAID, SELFPAY ==
--- NOTE | 2023-10-10 11:49 | MHC.OFFVISWM ---
Intake VS Expanded 10/10/23 11:50 Height 5 ft 4 in Weight 176 lb 6.4 oz BMI 30.3 Body Fat % 37.2 Body Fat Mass 65.6 Fat Free Mass 110.8 Visceral Fat Rating 13 Body Water % 43.1 Body Water Mass 76 Muscle Mass/Score 104.2 Basal Metabolic Rate/Score 1,464 Intake Visit Reasons: (TV) PO LSG 08/02/23 Meat Team Member Required: No Allergies No Known Allergies [No Known Allergies*] Allergy (Unknown, Verified 08/30/23 10:24) Medication List - Last Reconciled 10/10/23 by VICKY Tanner escitalopram oxalate 10 mg PO DAILY lorazepam 1 mg PO DAILY PRN pantoprazole 40 mg PO DAILY sucralfate 10 mL PO BID HPI HPI Comments History of Present Illness Details This?a?38?yo female who is s/p LSG without hiatal hernia repair on?08/02/2023. Presents for 2 month post op visit. Weight today is 176.4 pounds, with a BMI of 30.3. There has been a 69.4 pound weight loss,(initial weight 245.8 pounds) since starting the program on 03/29/2023 reflecting a 28.2 % total body weight loss and a weight loss of 42.9 pounds since surgery (operative weight 219.3 pounds) reflecting a 19.5 % TBWL since surgery. No complaints of nausea, emesis, abdominal pain or reflux. She continues the rebuild and 4 in 1, and is satisfied with the current meal plan. Present meal plan includes: 2 celebrate 4 in 1 shakes 2 scoops each, 8-10, 11-1 Celebrate rebuild 1 scoop 2-4 ZP bar 5-8 pm 32 oz water? Exercise routine includes: stationary bike 200 carmen x 2 (am and pm), 7 days per week [facility] Medical History BMI 37.0-37.9, adult GERD (gastroesophageal reflux disease) Shoulder pain, bilateral History of snoring Prediabetes Back pain Morbid obesity Anxiety and depression Otitis externa Surgical History S/P laparoscopic sleeve gastrectomy History of cataract surgery (~2015) Social History Household Members: None Household Members Other:: 4 children Housing: Apartment Are you a primary pediatric critical care nurse to a significant other at home: Yes (children, oldest 20 year old will assist post-op) Do you presently have visiting nurse or other home services: No Patient Tobacco Use Status: Never used Tobacco service: No Physical Exam Vital Signs: BMI result Body Mass Index 30.3 Assessment & Plan Assessment & Plan (1) S/P laparoscopic sleeve gastrectomy: Code(s): Z98.84 - Bariatric surgery status Plan: Patient is doing well and making good progress. She has increased her exercise. She does not wish to change the meal plan at this point. We will have her return to the office for follow-up for her three-month postop appointment in early October Telehealth Telehealth Location of provider rendering services: practice address Location of patient: address on file Patient Identification confirmed using: Name, : Yes Telehealth method: voice only Patient verbally consented to treatment: Yes Patient verbally consented to billing insurance company: Yes Patient informed of any privacy concerns related to visit: Yes Minutes spent on Phone/Video with Pt.: 10 Coding Level of Care Code Global (36143) Diagnoses S/P laparoscopic sleeve gastrectomy Z98.84
[2023-10-10 11:50] VITALS: BMI 30.3
== END 2023-10-10 13:18 | disposition home or self-care (01) ==
LOC: HO.HBS 13:10
PROVIDERS: PCP Internal Medicine; Visit Provider Physician Assistant Surgical
DX: E66.9 Obesity, unspecified (principal); Z68.30 Body mass index [BMI] 30.0-30.9, adult; Z90.3 Acquired absence of stomach [part of]; Z98.84 Bariatric surgery status
CPT/HCPCS: 99024

== ENCOUNTER → 2023-10-10 13:10 | Outpatient (BNVA) | payer MEDICAID, SELFPAY | PROVIDERS: PCP Internal Medicine; Visit Provider Physician Assistant Surgical | DX: Z98.84 Bariatric surgery status (principal) | CPT/HCPCS: 99212 ==

== ENCOUNTER 2023-11-07 14:04 | Outpatient (AMB) | payer MEDICAID, SELFPAY ==
[2023-11-07 09:37] VITALS: BMI 28.9
--- NOTE | 2023-11-07 09:37 | MHC.OFFVISWM ---
Intake VS Expanded 11/07/23 09:37 Height 5 ft 4 in Weight 168 lb 9.6 oz BMI 28.9 Body Fat % 35.1 Body Fat Mass 59.2 Fat Free Mass 109.4 Visceral Fat Rating 12 Body Water % 44.5 Body Water Mass 75 Muscle Mass/Score 102.8 Basal Metabolic Rate/Score 1,446 Intake Visit Reasons: (TV) PO LSG 08/02/23 Signal Supervisor Required: No Allergies No Known Allergies [No Known Allergies*] Allergy (Unknown, Verified 08/30/23 10:24) Medication List - Last Reconciled 11/07/23 by VICKY Tanner escitalopram oxalate 10 mg PO DAILY lorazepam 1 mg PO DAILY PRN HPI HPI Comments History of Present Illness Details This?a?38?yo female who is s/p LSG without hiatal hernia repair on?08/02/2023. Presents for 3 month post op visit. Weight today is 168.6 pounds, with a BMI of 28.8. There has been a 77.2 pound weight loss,(initial weight 245.8 pounds) since starting the program on 03/29/2023 reflecting a 31.4 % total body weight loss and a weight loss of 50.7 pounds since surgery (operative weight 219.3 pounds) reflecting a 23.1 % TBWL since surgery. No complaints of nausea, emesis, abdominal pain or reflux. She has not yet started a MVI or carmen + D She continues the rebuild and 4 in 1, and is satisfied with the current meal plan. She changed to rebuild only under the direction of Dr Myles Present meal plan includes: 2 celebrate rebuild shakes 2 scoops each, 8-10, 11-1 Celebrate rebuild 1 scoop 2-4 ZP bar 5-8 pm 32 oz water? Exercise routine includes: stationary bike 200 carmen x 2 (am and pm), 7 days per week [facility] Medical History BMI 37.0-37.9, adult GERD (gastroesophageal reflux disease) Shoulder pain, bilateral History of snoring Prediabetes Back pain Morbid obesity Anxiety and depression Otitis externa Surgical History S/P laparoscopic sleeve gastrectomy History of cataract surgery (~2016) Social History Household Members: None Household Members Other:: 4 children Housing: Apartment Are you a primary managed care analyst to a significant other at home: Yes (children, oldest 20 year old will assist post-op) Do you presently have visiting nurse or other home services: No Patient Tobacco Use Status: Never used Tobacco service: No Assessment & Plan Assessment & Plan (1) S/P laparoscopic sleeve gastrectomy: Code(s): Z98.84 - Bariatric surgery status Plan: Discussed the importance of adding a multivitamin and calcium plus D. She will continue on her current meal plan. Return to clinic 4 weeks. Text with any questions or concerns. Telehealth Telehealth Location of provider rendering services: practice address Location of patient: address on file Patient Identification confirmed using: Name, : Yes Telehealth method: voice only Patient verbally consented to treatment: Yes Patient verbally consented to billing insurance company: Yes Patient informed of any privacy concerns related to visit: Yes Minutes spent on Phone/Video with Pt.: 15 Coding Level of Care Code Tele Est Pt Level 3 (90009) Diagnoses S/P laparoscopic sleeve gastrectomy Z98.84 Time Spent (min) 18
== END 2023-11-07 14:10 | disposition home or self-care (01) ==
LOC: HO.HBS 14:04
PROVIDERS: PCP Internal Medicine; Visit Provider Physician Assistant Surgical
DX: E66.3 Overweight (principal); Z68.28 Body mass index [BMI] 28.0-28.9, adult; Z90.3 Acquired absence of stomach [part of]; Z98.84 Bariatric surgery status
CPT/HCPCS: 99213

== ENCOUNTER → 2023-11-07 14:04 | Outpatient (BNVA) | payer MEDICAID, SELFPAY | PROVIDERS: PCP Internal Medicine; Visit Provider Physician Assistant Surgical ==

== ENCOUNTER 2023-12-04 14:38 | Outpatient (AMB) | payer MEDICAID, SELFPAY ==
--- NOTE | 2023-12-04 09:26 | A.OFFVIS_ITS ---
VS Expanded 12/04/23 09:27 Height 5 ft 4 in Weight 164 lb 3.2 oz BMI 28.2 Body Fat % 33.9 Body Fat Mass 55.6 Fat Free Mass 108.4 Visceral Fat Rating 11 Body Water % 45.4 Body Water Mass 74.6 Muscle Mass/Score 102 Basal Metabolic Rate/Score 1,442 Intake Visit Reasons: (TV) PO LSG 08/02/23 Allergies No Known Allergies [No Known Allergies*] Allergy (Unknown, Verified 08/30/23 10:24) HPI Comments Details: This?a?38?yo female who is s/p LSG without hiatal hernia repair on?08/02/2023. Presents for 4 month post op visit. Weight today is 164.2 pounds, with a BMI of 28.2. There has been a 81.6 pound weight loss,(initial weight 245.8 pounds) since starting the program on 03/29/2023 reflecting a 33.1 % total body weight loss and a weight loss of 55.1 pounds since surgery (operative weight 219.3 pounds) reflecting a 25.1 % TBWL since surgery. No complaints of nausea, emesis, abdominal pain or reflux. She has started a MVI or carmen + D She is satisfied with the current meal plan. She changed to rebuild only under the direction of Dr Myles Present meal plan includes: 2 celebrate rebuild shakes 2 scoops each, 8-10, 11-1 Celebrate rebuild 1 scoop 2-4 ZP bar 5-8 pm 32 oz water? Exercise includes: stationary bike 250 carmen x 2 (am and pm), 7 days per week [facility] Medical History BMI 37.0-37.9, adult GERD (gastroesophageal reflux disease) Shoulder pain, bilateral History of snoring Prediabetes Back pain Morbid obesity Anxiety and depression Otitis externa Surgical History S/P laparoscopic sleeve gastrectomy History of cataract surgery (~2015) Social History Household Members: None Household Members Other:: 4 children Housing: Apartment Are you a primary out of school hours care worker to a significant other at home: Yes (children, oldest 20 year old will assist post-op) Do you presently have visiting nurse or other home services: No Patient Tobacco Use Status: Never used Tobacco service: No Telehealth Telehealth Telehealth Platform: Telephone Location of provider rendering services: practice address Location of patient: address on file Patient Identification confirmed using: Name, : Yes Telehealth method: voice only Patient verbally consented to treatment: Yes Patient verbally consented to billing insurance company: Yes Patient informed of any privacy concerns related to visit: Yes Minutes spent on Phone/Video with Pt.: 12 Assessment & Plan Assessment & Plan (1) S/P laparoscopic sleeve gastrectomy: Code(s): Z98.84 - Bariatric surgery status Category: Surgical Plan: Patient is satisfied with the current meal plan. She does not wish to change. She will continue as such. Text weekly with weights and any questions.
[2023-12-04 09:27] VITALS: BMI 28.2
== END 2023-12-04 14:46 | disposition home or self-care (01) ==
LOC: HO.HBS 14:38
PROVIDERS: PCP Internal Medicine; Visit Provider Physician Assistant Surgical
DX: E66.3 Overweight (principal); Z68.28 Body mass index [BMI] 28.0-28.9, adult; Z90.3 Acquired absence of stomach [part of]; Z98.84 Bariatric surgery status
CPT/HCPCS: 99212

== ENCOUNTER → 2023-12-04 14:38 | Outpatient (BNVA) | payer MEDICAID, SELFPAY | PROVIDERS: PCP Internal Medicine; Visit Provider Physician Assistant Surgical ==

== ENCOUNTER 2024-01-03 15:45 | Outpatient (AMB) | payer MEDICAID, SELFPAY ==
--- NOTE | 2024-01-03 11:59 | A.OFFVIS_ITS ---
VS Expanded 01/03/24 12:00 Height 5 ft 4 in Weight 164 lb 12.8 oz BMI 28.3 Body Fat % 34.1 Body Fat Mass 56.2 Fat Free Mass 108.6 Visceral Fat Rating 11 Body Water % 45.2 Body Water Mass 74.4 Muscle Mass/Score 102 Basal Metabolic Rate/Score 1,446 Intake Visit Reasons: (TV) PO LSG 08/02/23 Allergies No Known Allergies [No Known Allergies*] Allergy (Unknown, Verified 08/30/23 10:24) HPI Comments Details: This?a?38?yo female who is s/p LSG without hiatal hernia repair on?08/02/2023. Presents for 5 month post op visit. Weight today is 164.8 pounds, with a BMI of 28.3. There has been a 81.4 pound weight loss,(initial weight 245.8 pounds) since starting the program on 03/29/2023 reflecting a 33.1 % total body weight loss and a weight loss of 54.9 pounds since surgery (operative weight 219.3 pounds) reflecting a 25.1 % TBWL since surgery. No complaints of nausea, emesis, abdominal pain or reflux. She has started a MVI or carmen + D She is satisfied with the current meal plan. She changed to rebuild only under the direction of Dr Myles. Has not been able to exercise over the last 2 weeks due to multiple appointments for her son in [place] for decreased vision. She states she would like to try to add food Present meal plan includes: 2 celebrate rebuild shakes 2 scoops each, 8-10, 11-1 mixed with chiobani oat milk as the almond milk gave her diarrhea, now resolved. Celebrate rebuild 1 scoop 2-4 ZP bar 5-8 pm 48 oz water? Exercise includes: None in the last 2 weeks or so stationary bike 250 carmen x 2 (am and pm), 7 days per week [facility] Medical History BMI 37.0-37.9, adult GERD (gastroesophageal reflux disease) Shoulder pain, bilateral History of snoring Prediabetes Back pain Morbid obesity Anxiety and depression Otitis externa Surgical History S/P laparoscopic sleeve gastrectomy History of cataract surgery (~2016) Social History Household Members: None Household Members Other:: 4 children Housing: Apartment Are you a primary home child care provider to a significant other at home: Yes (children, oldest 20 year old will assist post-op) Do you presently have visiting nurse or other home services: No Patient Tobacco Use Status: Never used Tobacco service: No Telehealth Telehealth Telehealth Platform: Telephone Location of provider rendering services: practice address Location of patient: address on file Patient Identification confirmed using: Name, : Yes Telehealth method: voice only Patient verbally consented to treatment: Yes Patient verbally consented to billing insurance company: Yes Patient informed of any privacy concerns related to visit: Yes Minutes spent on Phone/Video with Pt.: 12 Assessment & Plan Assessment & Plan (1) S/P laparoscopic sleeve gastrectomy: Code(s): Z98.84 - Bariatric surgery status Category: Medical Plan: Overall doing fairly well. She has not been able to exercise due to many medical appointments for her child. This is slowing down and she should now be able to exercise again. Discussed possibly doing at least 1 session of stationary bike in the morning before any appointments. Start celebrate rebuild, 1 scoop at 8-10, 11-1 Zone perfect bar at 2-4 Meal at 5 or 6 with 4 forks of protein and for forks of cooked vegetables May have half cup fresh berries at 7 or 8 if she wishes Return to the office for six-month follow-up and labs in January
[2024-01-03 12:00] VITALS: BMI 28.3
== END 2024-01-03 15:48 | disposition home or self-care (01) ==
LOC: HO.HBS 15:45
PROVIDERS: PCP Internal Medicine; Visit Provider Physician Assistant Surgical
DX: E66.3 Overweight (principal); Z68.28 Body mass index [BMI] 28.0-28.9, adult; Z90.3 Acquired absence of stomach [part of]; Z98.84 Bariatric surgery status
CPT/HCPCS: 99213

== ENCOUNTER → 2024-01-03 15:45 | Outpatient (BNVA) | payer MEDICAID, SELFPAY | PROVIDERS: PCP Internal Medicine; Visit Provider Physician Assistant Surgical | DX: Z98.84 Bariatric surgery status (principal) ==

== ENCOUNTER 2024-01-11 12:07 | Outpatient (REF) | payer MEDICAID, SELFPAY ==
[2024-01-11 13:09] LABS: MANUAL DIFF FLAG NO
[2024-01-11 13:10] LABS: Basophils Percent Auto 0.6 % (0-2); Eosinophils Percent Auto 0.4 % (0-4); Hematocrit 39.3 % (37.0-47.0); Hemoglobin 12.9 g/dl (12.0-16.0); Imm Gran Abs Auto 0.01 X10*3/uL (0.00-0.03); Imm Gran Pct Auto 0.1 % (0.0-0.4); Lymphocytes Absolute Auto 2.4 X10*3/uL (1.2-4.9); Lymphocytes Percent Auto 33.9 % (20-40); Mean Corpuscular HGB Conc 32.8 g/dl (31.0-35.0); Mean Corpuscular Hemoglobin 28.6 pg (27.0-33.0); Mean Corpuscular Volume 87.1 fL (80.0-98.0); Mean Platelet Volume 11.6 fL (9.4-12.3); Monocytes Absolute Auto 0.4 X10*3/uL (0.1-1.2); Monocytes Percent Auto 5.6 % (2-11); Neutrophils Absolute Auto 4.3 x10*3/uL (2.0-8.3); Neutrophils Percent Auto 59.4 % (45-73); Platelet Count 173 X10*3/uL (160-400); Red Blood Count 4.51 X10*6/uL (4.20-5.50); Red Cell Distribution Width 12.6 % (11.0-16.0); White Blood Count 7.2 X10*3/uL (4.8-10.8)
[2024-01-11 14:53] LABS: CT PCR NOT DETECTED (Not Detect.); NG PCR NOT DETECTED (Not Detect.)
[2024-01-12 03:21] LABS: Syphilis Screen Nonreactive (Nonreactive)
[2024-01-12 03:32] LABS: HIV AB/AG Nonreactive (Nonreactive); HIV Num 1 0.04 S/CO (0.00-0.99)
== END 2024-01-11 12:08 | disposition home or self-care (01) ==
LOC: HO.10HDL 12:07
PROVIDERS: Visit Provider Internal Medicine
DX: E28.2 Polycystic ovarian syndrome (principal); N91.1 Secondary amenorrhea; Z11.3 Encounter for screening for infections with a predominantly sexual mode of transmission
CPT/HCPCS: 0353U; 85025; 86780; 87389

== ENCOUNTER 2024-03-05 09:56 | Outpatient (REF) | payer MEDICAID, SELFPAY ==
[2024-03-06 13:04] LABS: Rubella IgG Antibody 4.43 Index
[2024-03-07 22:09] LABS: TS Negative Control Passed; TS Panel A 0; TS Panel B 0; TS Positive Control Passed; TSpotTB Negative (Negative)
== END 2024-03-05 09:57 | disposition home or self-care (01) ==
LOC: HO.10HDL 09:56
PROVIDERS: Visit Provider Internal Medicine
DX: Z11.1 Encounter for screening for respiratory tuberculosis (principal); E28.2 Polycystic ovarian syndrome
CPT/HCPCS: 36415; 86481; 86735; 86762; 86765; 86787

== ENCOUNTER 2024-03-07 13:57 | Outpatient (AMB) | payer MEDICAID, SELFPAY ==
--- NOTE | 2024-03-07 13:58 | A.OFFVIS_ITS ---
VS Expanded 03/07/24 14:05 BP 110/73 Blood Pressure Location Rt brachial Blood Pressure Position Sitting Pulse 61 Pulse Source Pulse Oximeter Temp 97.1 F Temperature Source Tympanic Pulse Oximetry 100 Oxygen Delivery Method Room Air Height 5 ft 4 in Weight 154 lb 6.4 oz BMI 26.5 Body Fat % 26.4 Body Fat Mass 40.8 Fat Free Mass 113.6 Visceral Fat Rating 4.0 Body Water % 52.6 Body Water Mass 81.2 Muscle Mass/Score 107.8 Basal Metabolic Rate/Score 1,520 Intake Visit Reasons: (oV) PO LSG 08/02/23 Arc Cutter Plasma Arc Required: No Allergies No Known Allergies [No Known Allergies*] Allergy (Unknown, Verified 03/07/24 14:07) Medication List - Last Reconciled 03/07/24 by VICKY Tanner escitalopram oxalate 10 mg PO DAILY lorazepam 1 mg PO DAILY PRN HPI Comments Details: This?a?38?yo female who is s/p LSG without hiatal hernia repair on?08/02/2023. Presents for 7 month post op visit. Weight today is 154.4 pounds, with a BMI of 26.5. There has been a 91.4 pound weight loss,(initial weight 245.8 pounds) since starting the program on 03/29/2023 reflecting a 37.1 % total body weight loss and a weight loss of 61.9 pounds since surgery (operative weight 219.3 pounds) reflecting a 28.2 % TBWL since surgery. No complaints of nausea, emesis, abdominal pain or reflux. She has started a celebrate MVI or carmen + D She is satisfied with the current meal plan. She changed to Premier protein only under the direction of Dr Myles. Has not been able to exercise over the last 2 weeks due to multiple appointments for her son in [place] for decreased vision. She states she would like to try to add food Present meal plan includes: Premier protein RTD 4 oz w 4 oz of almond milk at 7-9, 11-1 Zone perfect bar at 2-4 Meal at 5 or 6 with 4 forks of protein and for forks of cooked vegetables 48 oz water? Exercise includes: stationary bike 2-3 x per week 300 carmen PFSH Medical History BMI 37.0-37.9, adult GERD (gastroesophageal reflux disease) Shoulder pain, bilateral History of snoring Prediabetes Back pain Morbid obesity Anxiety and depression Otitis externa Surgical History S/P laparoscopic sleeve gastrectomy History of cataract surgery (~2016) Social History Household Members: None Household Members Other:: 4 children Housing: Apartment Are you a primary resident care director to a significant other at home: Yes (children, oldest 20 year old will assist post-op) Do you presently have visiting nurse or other home services: No Patient Tobacco Use Status: Never used Tobacco service: No Physical Exam Const General: healthy appearing and no acute distress Resp Effort & Inspection: normal respiratory effort Auscultation: clear to auscultation bilaterally Cardio Rate: regular rate Rhythm: regular rhythm GI Auscultation: normal bowel sounds Extrem General: Yes normal to inspection Assessment & Plan Assessment & Plan (1) S/P laparoscopic sleeve gastrectomy: Code(s): Z98.84 - Bariatric surgery status Category: Surgical Plan: Patient is doing well and has achieved significant weight loss. She will continue her current meal plan. She will join the gym, [employer], discount paperwork has been given to her. She was encouraged to add body weight exercise home videos at home until she is able to join the gym next month. She will text with any questions or concerns. Encouraged to send weight weekly. We will additionally check six-month postop labs. Orders: Orders Vitamin A Today A04.8 - Other specified bacterial intestinal infections, E53.8 - Deficiency of other specified B group vitamins, E60 - Dietary zinc deficiency, Z98.84 - Bariatric surgery status Zinc Today A04.8 - Other specified bacterial intestinal infections, E53.8 - Deficiency of other specified B group vitamins, E60 - Dietary zinc deficiency, Z98.84 - Bariatric surgery status Vitamin B1 Today A04.8 - Other specified bacterial intestinal infections, E53.8 - Deficiency of other specified B group vitamins, E60 - Dietary zinc deficiency, Z98.84 - Bariatric surgery status Lipid Panel Today A04.8 - Other specified bacterial intestinal infections, E53.8 - Deficiency of other specified B group vitamins, E60 - Dietary zinc deficiency, Z98.84 - Bariatric surgery status TSH reflex Free T4 Today A04.8 - Other specified bacterial intestinal infectio ns, E53.8 - Deficiency of other specified B group vitamins, E60 - Dietary zinc deficiency, Z98.84 - Bariatric surgery status Vitamin D 25-OH Total Today A04.8 - Other specified bacterial intestinal infections, E53.8 - Deficiency of other specified B group vitamins, E60 - Dietary zinc deficiency, Z98.84 - Bariatric surgery status IRON PROFILE Today A04.8 - Other specified bacterial intestinal infections, E53.8 - Deficiency of other specified B group vitamins, E60 - Dietary zinc deficiency, Z98.84 - Bariatric surgery status Ferritin Today A04.8 - Other specified bacterial intestinal infections, E53.8 - Deficiency of other specified B group vitamins, E60 - Dietary zinc deficiency, Z98.84 - Bariatric surgery status Vitamin B12 and Folate Today A04.8 - Other specified bacterial intestinal infections, E53.8 - Deficiency of other specified B group vitamins, E60 - Dietary zinc deficiency, Z98.84 - Bariatric surgery status Basic Metabolic Panel Today A04.8 - Other specified bacterial intestinal infections, E53.8 - Deficiency of other specified B group vitamins, E60 - Dietary zinc deficiency, Z98.84 - Bariatric surgery status
[2024-03-07 14:05] VITALS: BP 110/73; PULSE 61; TEMP 36.2; O2SAT 100; BMI 26.5
== END 2024-03-07 14:28 | disposition home or self-care (01) ==
PROVIDERS: PCP Internal Medicine; Visit Provider Physician Assistant Surgical
DX: E66.3 Overweight (principal); Z68.26 Body mass index [BMI] 26.0-26.9, adult; Z90.3 Acquired absence of stomach [part of]; Z98.84 Bariatric surgery status
CPT/HCPCS: 99213

== ENCOUNTER → 2024-03-07 13:57 | Outpatient (BNVA) | payer MEDICAID, SELFPAY | PROVIDERS: PCP Internal Medicine; Visit Provider Physician Assistant Surgical | DX: A04.8 Other specified bacterial intestinal infections (principal); E53.8 Deficiency of other specified B group vitamins; E60 Dietary zinc deficiency; Z71.3 Dietary counseling and surveillance; Z98.84 Bariatric surgery status | CPT/HCPCS: 99212 ==

== ENCOUNTER 2024-03-27 10:48 | Outpatient (REF) | payer MEDICAID, SELFPAY | END 2024-03-27 10:49 | disposition home or self-care (01) | LOC: HO.LAB 10:48 | PROVIDERS: PCP Internal Medicine; Visit Provider Physician Assistant Surgical | DX: Z13.89 Encounter for screening for other disorder (principal) ==

== ENCOUNTER 2024-05-02 09:00 | Outpatient (AMB) | payer MEDICAID, SELFPAY ==
--- NOTE | 2024-05-02 08:46 | MHC.OFFVISWM ---
VS Expanded 05/02/24 08:47 Height 5 ft 4 in Weight 149 lb 6 oz BMI 25.6 Body Fat % 30.1 Body Fat Mass 45 Fat Free Mass 104.6 Visceral Fat Rating 9 Body Water % 48 Body Water Mass 71.8 Muscle Mass/Score 98.4 Basal Metabolic Rate/Score 1,395 Intake Visit Reasons: (TV) PO LSG 08/02/23 Senior Hardware Engineer Required: No Allergies No Known Allergies [No Known Allergies*] Allergy (Unknown, Verified 03/07/24 14:07) Medication List - Last Reconciled 05/02/24 by VICKY Tanner escitalopram oxalate 10 mg PO DAILY lorazepam 1 mg PO DAILY PRN HPI Comments Details: This?a?38?yo female who is s/p LSG without hiatal hernia repair on?08/02/2023. Presents for 9 month post op visit. Weight today is 149.6 pounds, with a BMI of 25.6. There has been a 96.2 pound weight loss,(initial weight 245.8 pounds) since starting the program on 03/29/2023 reflecting a 39.1 % total body weight loss and a weight loss of 69.7 pounds since surgery (operative weight 219.3 pounds) reflecting a 31.7 % TBWL since surgery. No complaints of nausea, emesis, abdominal pain or reflux. She has started a celebrate MVI or carmen + D She is satisfied with the current meal plan. Reports she is having pain around her both shoulders. She told her PCP who told her to tell us. She does not know of any exacerbating factors. She states this happens perhaps 1-2 x per week x 3-4 weeks. She describes the pain as sharp and a dull ache, no neuropathic symptoms and she cannot lift her arms over her head. The pain lasts 1-2 days and then completely resolves. Muscle cream helps a little but it does resolve completely on it's own. She denies any known hx of trauma Present meal plan includes: Premier protein RTD 4 oz w 4 oz of almond milk at 7-9, 11-1 Zone perfect bar at 2-4 Meal at 5 or 6 with 4 forks of protein and 4 forks of cooked vegetables 48 oz water? Exercise includes: stationary bike 5 x per week 200-250 carmen PFSH Medical History BMI 37.0-37.9, adult GERD (gastroesophageal reflux disease) Shoulder pain, bilateral History of snoring Prediabetes Back pain Morbid obesity Anxiety and depression Otitis externa Surgical History S/P laparoscopic sleeve gastrectomy History of cataract surgery (~2016) Social History Household Members: None Household Members Other:: 4 children Housing: Apartment Are you a primary pharmacy care coordinator to a significant other at home: Yes (children, oldest 20 year old will assist post-op) Do you presently have visiting nurse or other home services: No Patient Tobacco Use Status: Never used Tobacco service: No Telehealth Telehealth Telehealth Platform: Telephone Location of provider rendering services: practice address Location of patient: address on file Patient Identification confirmed using: Name, : Yes Telehealth method: voice only Patient verbally consented to treatment: Yes Patient verbally consented to billing insurance company: Yes Patient informed of any privacy concerns related to visit: Yes Minutes spent on Phone/Video with Pt.: 15 Assessment & Plan Assessment & Plan (1) S/P laparoscopic sleeve gastrectomy: Code(s): Z98.84 - Bariatric surgery status Category: Surgical Plan: Patient is very satisfied with her meal plan and weight loss. She has achieved a healthy weight. She will continue her current meal plan as she wishes. Encouraged to continue exercise although increase calories burned to 300-350. We will have her return to the office as scheduled. (2) Shoulder pain: Code(s): M25.519 - Pain in unspecified shoulder Category: Medical Plan: Unclear etiology although likely musculoskeletal based on no complaints of neuropathic involvement. Possibly rotator cuff. She is going to follow through with her primary care physician's direction.
[2024-05-02 08:47] VITALS: BMI 25.6
== END 2024-05-02 09:18 | disposition home or self-care (01) ==
LOC: HO.HBS 09:10
PROVIDERS: PCP Internal Medicine; Visit Provider Physician Assistant Surgical
DX: Z98.84 Bariatric surgery status (principal); M25.519 Pain in unspecified shoulder
CPT/HCPCS: 99213

== ENCOUNTER → 2024-05-02 09:00 | Outpatient (BNVA) | payer MEDICAID, SELFPAY | PROVIDERS: PCP Internal Medicine; Visit Provider Physician Assistant Surgical ==

== ENCOUNTER 2024-06-07 10:00 | Outpatient (AMB) | payer MEDICAID, SELFPAY ==
--- NOTE | 2024-06-07 09:51 | MHC.OFFVISWM ---
VS Expanded 06/07/24 09:52 Height 5 ft 4 in Weight 148 lb BMI 25.4 Body Fat % 29.4 Body Fat Mass 43.6 Fat Free Mass 104.6 Visceral Fat Rating 8 Body Water % 48.4 Body Water Mass 71.6 Muscle Mass/Score 98.2 Basal Metabolic Rate/Score 1,385 Intake Visit Reasons: (TV) PO LSG 08/02/23 Restoration Technician Required: No Allergies No Known Allergies [No Known Allergies*] Allergy (Unknown, Verified 03/07/24 14:07) Medication List - Last Reconciled 06/07/24 by VICKY Tanner escitalopram oxalate 10 mg PO DAILY lorazepam 1 mg PO DAILY PRN HPI Comments Details: This?a?38?yo female who is s/p LSG without hiatal hernia repair on?08/02/2023. Presents for 10 month post op visit. Weight today is 148 pounds, with a BMI of 25.6. There has been a 96.2 pound weight loss,(initial weight 245.8 pounds) since starting the program on 03/29/2023 reflecting a 39.1 % total body weight loss and a weight loss of 69.7 pounds since surgery (operative weight 219.3 pounds) reflecting a 31.7 % TBWL since surgery. No complaints of nausea, emesis, abdominal pain or reflux. She has started a celebrate MVI or carmen + D She is satisfied with the current meal plan. Reports she is no longer having pain around her shoulders and can exercise freely. Present meal plan includes: Premier protein RTD 4 oz w 4 oz of almond milk at 7-9, 11-1 Zone perfect bar at 2-4 Meal at 5 or 6 with 4 forks of protein and 4 forks of cooked vegetables 48 oz water? Exercise includes: home stationary bike 5 x per week 250 carmen [facility] Medical History BMI 37.0-37.9, adult GERD (gastroesophageal reflux disease) Shoulder pain, bilateral History of snoring Prediabetes Back pain Morbid obesity Anxiety and depression Otitis externa Surgical History S/P laparoscopic sleeve gastrectomy History of cataract surgery (~2015) Social History Household Members: None Household Members Other:: 4 children Housing: Apartment Are you a primary healthcare administrator to a significant other at home: Yes (children, oldest 20 year old will assist post-op) Do you presently have visiting nurse or other home services: No Patient Tobacco Use Status: Never used Tobacco service: No Telehealth Telehealth Telehealth Platform: Telephone Location of provider rendering services: practice address Location of patient: address on file Patient Identification confirmed using: Name, : Yes Telehealth method: voice only Patient verbally consented to treatment: Yes Patient verbally consented to billing insurance company: Yes Patient informed of any privacy concerns related to visit: Yes Minutes spent on Phone/Video with Pt.: 15 Assessment & Plan Assessment & Plan (1) S/P laparoscopic sleeve gastrectomy: Code(s): Z98.84 - Bariatric surgery status Category: Surgical Plan: Pt is satisfied with her current meal plan encouraged to increase exercise plan to 350 calories burned per session and increase by one day if possible. encouraged to continue to text weights weekly rtc as scheduled
[2024-06-07 09:52] VITALS: BMI 25.4
== END 2024-06-07 10:26 | disposition home or self-care (01) ==
LOC: HO.HBS 10:20
PROVIDERS: PCP Internal Medicine; Visit Provider Physician Assistant Surgical
DX: Z98.84 Bariatric surgery status (principal)
CPT/HCPCS: 99213

== ENCOUNTER → 2024-06-07 10:00 | Outpatient (BNVA) | payer MEDICAID, SELFPAY | PROVIDERS: PCP Internal Medicine; Visit Provider Physician Assistant Surgical ==

== ENCOUNTER 2024-07-05 09:58 | Outpatient (REF) | payer MEDICAID, SELFPAY ==
[2024-07-05 10:27] LABS: MANUAL DIFF FLAG NO
[2024-07-05 10:32] LABS: Basophils Percent Auto 0.5 % (0-2); Eosinophils Percent Auto 0.2 % (0-4); Hematocrit 44.7 % (37.0-47.0); Hemoglobin 15.2 g/dl (12.0-16.0); Imm Gran Abs Auto 0.02 X10*3/uL (0.00-0.03); Imm Gran Pct Auto 0.3 % (0.0-0.4); Lymphocytes Absolute Auto 2.4 X10*3/uL (1.2-4.9); Lymphocytes Percent Auto 36.3 % (20-40); Mean Corpuscular Hemoglobin 29.3 pg (27.0-33.0); Mean Corpuscular Volume 86.1 fL (80.0-98.0); Mean Platelet Volume 11.5 fL (9.4-12.3); Monocytes Absolute Auto 0.3 X10*3/uL (0.1-1.2); Monocytes Percent Auto 4.6 % (2-11); Neutrophils Absolute Auto 3.8 x10*3/uL (2.0-8.3); Neutrophils Percent Auto 58.1 % (45-73); Platelet Count 157 X10*3/uL (160-400); Red Blood Count 5.19 X10*6/uL (4.20-5.50); Red Cell Distribution Width 11.7 % (11.0-16.0); White Blood Count 6.6 X10*3/uL (4.8-10.8)
[2024-07-05 11:40] LABS: Folate 4.3 ng/mL (> or = 4.0); Vitamin B12 473 pg/mL (200-900)
[2024-07-05 18:44] LABS: CT PCR DETECTED (Not Detect.); NG PCR NOT DETECTED (Not Detect.)
== END 2024-07-05 09:59 | disposition home or self-care (01) ==
LOC: HO.10HDL 09:58
PROVIDERS: Visit Provider Internal Medicine
DX: L30.4 Erythema intertrigo (principal); N30.00 Acute cystitis without hematuria; Z98.84 Bariatric surgery status; Z20.2 Contact with and (suspected) exposure to infections with a predominantly sexual mode of transmission
CPT/HCPCS: 82607; 82746; 85025; 87491; 87591

== ENCOUNTER 2024-10-14 10:55 | Outpatient (REF) | payer MEDICAID, SELFPAY ==
[2024-10-14 13:51] LABS: HIV AB/AG Nonreactive (Nonreactive); HIV Num 1 0.05 S/CO (0.00-0.99)
[2024-10-14 16:34] LABS: CT PCR NOT DETECTED (Not Detect.); NG PCR NOT DETECTED (Not Detect.)
[2024-10-16 09:53] LABS: RPR Rapid Plasma Reagin NON-REACTIVE (NON-REACTIVE)
== END 2024-10-14 10:56 | disposition home or self-care (01) ==
LOC: HO.10HDL 10:55
PROVIDERS: Visit Provider Internal Medicine
DX: Z00.00 Encounter for general adult medical examination without abnormal findings (principal); A56.11 Chlamydial female pelvic inflammatory disease; M25.461 Effusion, right knee; M65.4 Radial styloid tenosynovitis [de Quervain]; M75.51 Bursitis of right shoulder; Z11.3 Encounter for screening for infections with a predominantly sexual mode of transmission
CPT/HCPCS: 86592; 87389; 87491; 87591

== ENCOUNTER 2024-10-18 08:50 | Outpatient (REF) | payer MEDICAID, SELFPAY ==
--- NOTE | ~2024-10-18 | XR_ITS ---
EXAMINATION: XR WRIST 3 OR MORE VIEWS RIGHT HISTORY: M25.531 - Pain in right wrist COMPARISON: There are no prior studies available for comparison. FINDINGS: Three views of the right wrist are submitted. Osseous mineralization is normal. There is no fracture or dislocation. The joint spaces are preserved. The soft tissues are unremarkable. XR/XR wrist RT min 3V IMPRESSION: Unremarkable examination of the right wrist. Electronically signed by: Augustus Champion MD 10/18/2024 01:34 PM EDT
== END 2024-10-18 08:51 | disposition home or self-care (01) ==
LOC: HO.HOSX 08:50
DX: M25.531 Pain in right wrist (principal); M65.4 Radial styloid tenosynovitis [de Quervain]
CPT/HCPCS: 73110; 99212

== ENCOUNTER 2024-10-18 13:01 | Outpatient (AMB) | payer MEDICAID, SELFPAY ==
--- NOTE | 2024-10-18 13:19 | A.OFFVIS_ITS ---
Vital Signs 10/18/24 13:23 Height 5 ft 4 in Weight 148 lb BMI 25.4 Handedness Right Intake Visit Reasons: New patient-right wrist pain/swelling Intake Note: Dede is a 39 year old right hand dominant female who presents today as a new patient with complaints of right wrist pain and swelling. Patient reports that she has had ongoing pain about 1 month now, increased pain with finger ROM and difficulty sleeping at night. When she saw her PCP she reported history of a cat scratch, due to this she was given Amoxicillin. She states that her pain is in both wrists and she notices swelling on the dorsal aspect of the left wrist. Denies numbness and tingling at the moment but she notices numbness in her right and left thumb and index finger. Allergies No Known Allergies [No Known Allergies*] Allergy (Unknown, Verified 10/18/24 13:22) HPI Comments Details: History of Present Illness The patient is a 39-year-old female presenting with wrist pain. The discomfort began approximately one month ago in both wrists and has not been attributed to any particular injury. The pain is persistent with stiffness and discomfort running from the thumbs through the wrists and into the forearm. A notable lump is present on the right wrist, identified as a ganglion cyst, although it is not causing significant pain. The patient states the pain was more pronounced before pain medication was initiated. She describes episodic swelling in the wrist, sometimes associated with transient numbness and tingling, but these sensations do not occur consistently or daily. Recent x-rays have ruled out fractures, bony abnormalities, and arthritis in the right hand. Procedure - Gerald test was performed to evaluate for De Quervain's Tenosynovitis. Informed consent was obtained verbally. The procedure involved the patient placing the thumb inside the fist and angling the wrist in ulnar deviation. The test was positive for De Quervain's Tenosynovitis in both wrists, more pronounced in the right. Review of Systems - Musculoskeletal: Reports of swelling in the wrists, sometimes associated with numbness and tingling; denies constant numbness or tingling. - Neurological: Denies any consistent numbness or tingling apart from when swelling occurs. Physical Exam - Musculoskeletal- Inspection of both wrists revealed no redness or significant swelling. Ganglion cyst palpated on the left wrist. Pain elicited on Gerald's test bilaterally. No fractures or arthritis noted in the imaging. Patient was able to make a closed fist and extend all digits of bilateral hands fully and without difficulty. Normal sensation to The tips of all digits of bilateral hands. Distal sensation intact. Capillary refill brisk. Results - X-ray of the right hand: No evidence of fracture, bony abnormality, or arthritis. Plan The management plan for the patient's bilateral De Quervain's Tenosynovitis includes initiating occupational therapy and prescribing comfort cool braces to alleviate tendon stress. The patient is advised to adhere to this regimen for 6 to 8 weeks. Should symptoms persist, the possibility of corticosteroid injections will be revisited, keeping in mind the patient's current reservations. The ganglion cyst of the left wrist will remain under observation for any symptom developments warranting further intervention. Patient was informed and verbally consented to the use of an ambient scribe for clinic note documentation during this visit. Discussion Notes During the visit, we discussed the diagnosis of De Quervain's Tenosynovitis for both wrists and considered a conservative management approach centered around occupational therapy and comfort cool braces. The patient expressed a preference for non-invasive interventions, which led to delaying the consideration of corticosteroid injections unless therapy proves insufficient. I addressed the potential progressions of therapy and reassured the patient of the low likelihood of the condition involving the shoulders. Regarding the ganglion cyst, I explained its benign nature and the plan to monitor for any symptomatic changes. Future follow-up evaluations would be crucial if symptoms either persist or worsen after the initial treatment plan timeframe, with clear instructions provided for making subsequent appointments. Patient Instructions - Use comfort cool braces as instructed, can remove during periods of rest. - Attend scheduled occupational therapy sessions and perform recommended exercises at home. - Monitor for any changes in symptoms, particularly increased pain, or changes in the ganglion cyst. - Book follow-up appointments as needed for further assessments or if pain and functionality don?t improve after 6 to 8 weeks. - Contact the office if there are any new or worsening symptoms. [facility] Medical History BMI 37.0-37.9, adult GERD (gastroesophageal reflux disease) Shoulder pain, bilateral History of snoring Prediabetes Back pain Morbid obesity Anxiety and depression Otitis externa Surgical History S/P laparoscopic sleeve gastrectomy History of cataract surgery (~2016) Social History (Updated 10/18/24 @ 13:23 by Jordan Saldivar) Household Members: None Household Members Other:: 4 children Housing: Apartment Are you a primary administrator health care facility to a significant other at home: Yes (children, oldest 20 year old will assist post-op) Do you presently have visiting nurse or other home services: No Alcohol intake: current Alcohol intake frequency: holidays/special occasions only Patient Tobacco Use Status: Never used Tobacco service: No Physical Exam Vital Signs: BMI result Body Mass Index 25.4 Assessment & Plan Assessment & Plan (1) De Quervain's tenosynovitis, bilateral: Code(s): M65.4 - Radial styloid tenosynovitis [de Quervain] Category: Medical Plan As above Orders: Orders XR wrist RT min 3V Today M25.531 - Pain in right wrist Coding Level of Care Code New Pt Level 3 (88210) Diagnoses De Quervain's tenosynovitis, bilateral M65.4
[2024-10-18 13:23] VITALS: BMI 25.4
== END 2024-10-18 13:43 | disposition home or self-care (01) ==
LOC: HO.HOS 13:02
PROVIDERS: PCP Internal Medicine
DX: M65.4 Radial styloid tenosynovitis [de Quervain] (principal)
CPT/HCPCS: 99203

== ENCOUNTER → 2024-10-18 13:07 | Outpatient (BNV) | payer MEDICAID, SELFPAY | PROVIDERS: Visit Provider Radiology Diagnostic Radiology | DX: M25.531 Pain in right wrist (principal) | CPT/HCPCS: 73110 ==

== ENCOUNTER 2024-11-07 08:34 | Outpatient (REF) | payer MEDICAID, SELFPAY ==
--- NOTE | ~2024-11-07 | XR_ITS ---
EXAMINATION: XR SHOULDER, LEFT CLINICAL INFORMATION: M25.519 - Pain in unspecified shoulder COMPARISON: None available. TECHNIQUE: AP external rotation, Grashey, scapular Y, and axillary views of the left shoulder. FINDINGS: No acute cortical disruption or malalignment. No lytic or blastic lesions. No gross sclerosis at the articular surfaces. XR/XR shoulder LT min 2V IMPRESSION: No acute fracture or dislocation. Negative exam. Electronically signed by: Nitish Mendoza MD 11/08/2024 08:03 AM EDT
--- NOTE | ~2024-11-07 | XR_ITS ---
EXAMINATION: XR SHOULDER, RIGHT CLINICAL INFORMATION: M25.519 - Pain in unspecified shoulder COMPARISON: None available. TECHNIQUE: AP external rotation, Grashey, scapular Y, and axillary views of the right shoulder. FINDINGS: No acute cortical disruption or malalignment. No gross degenerative changes. No lytic or blastic lesions. No metallic or radiopaque foreign body. XR/XR shoulder RT min 2V IMPRESSION: Normal x-ray right shoulder. Electronically signed by: Nitish Mendoza MD 11/08/2024 08:34 AM EDT
--- OUTSIDE RECORDS SUMMARY | 2024-11-07 09:04 | XMS_ITS | Clinical Summary ---
Author Organization [employer] [facility] Address [address] [place] [address] [address] [place] [address] Care Team Providers Care Supervisor Histology Name Role Phone Unavailable Primary Care Provider Unavailabl e Allergies No known active allergies Medications LORazepam (Ativan) 0.25 mg split tablet TAKE 1 TABLET BY MOUTH EVERY OTHER DAY NEEDED 11/22/[address] otic suspension PL[address] 4 DROPS INTO THE AFFECTED EAR(S) TWICE DAILY DIRECTED 09/21/2022 Active medroxyPROGESTE Vipul (Provera) 10 MG tablet Take 10 mg by mouth in the morning. 09/21/2022 Active melatonin 5 MG tablet Take 1 tablet by mouth at bedtime. 09/19/2022 Active Immunizations Name Administration Dates Next Due Pfizer Covid-19 Vaccine 12+ awa-sucrose (Blanca C ap) 10/11/2022 Tdap 10/20/2017 Social History Tobacco Use Types Packs/Day Years Used Date Smoking Tobacco: Never Smokeless Tobacco: Never Tobacco Cessation:Counseling Given: Not Answered Comments Unknown Sex and Gender Information Value Date Recorded Sex Assigned at Female 05/23/2022 10:20 AM EDT Legal Sex Female 10:20 AM EDT Gender Identity Female 09/23/2022 9:00 AM EST Sexual Orientation Don't know 09/23/2022 9: 00 AM EST Last Filed Vital Signs Vital Sign Reading Time Taken Comments Blood Pressure 124/78 09/23/2022 3:35 PM EST Pulse - - Temperature - - Respiratory Rate - - Oxygen Saturation - - Inhaled Oxygen Concentration - - Weight - - Height - - Body Mass Index - - Plan of Treatment Health Maintenance Due Date Last Done Comments Dental Oral Exam 1984 Dental Prophylaxis 1984 Dental X-Ray: Full Mouth 1984 Depression Screening 1984 HIV Screening 1984 SDOH Screening 1984 Alcohol/Substance Use Screening 1996 Family Planning (PISQ) 1999 Hepatitis C Screening 2002 Hepatitis B Vaccines (1 of 3 - 19+ 3-dose series) 2003 Pap Smear 2005 Cervical Cancer Screening 2014 HPV/Cotest 2014 Tobacco Screening 09/24/2023 09/23/2022 Dental X-Ray: Bitewings 09/25/2023 09/23/2022 COVID-19 Vaccine (2 - 2023-2 5 season) 2024 10/11/2022 Influenza Vaccine (#1) 2024 Mammogram 2024 DTaP/Tdap/Td Vaccines (2 - T d or Tdap) 10/21/2027 10/20/2017 Zoster Vaccines (1 of 2) 2034 RSV Patients and Pa tients Aged 60 years or older (1 - 1-dose 75+ series) 2059 HIB Vaccines Aged Out No longer eligi ble based on patient's age to complete this topic HPV Vaccines Aged Out No longer eligi ble based on patient's age to complete this topic Hepatitis A Vaccines Aged Out No long er eligible based on patient's age to complete this topic IPV Vaccines Aged Out No longer eligi ble based on patient's age to complete this topic Meningococcal Vaccine Aged Out No anny marc eligible based on patient's age to complete this topic Pneumococcal Vaccine: Pediat rics (0 to 5 Years) and At-Risk Patients (6 to 49) Years) Aged Out No longer elig ible based on patient's age to complete this topic RSV under 20 months Aged Out No longe r eligible based on patient's age to complete this topic Rotavirus Vaccines Aged Out No longer eligible based on patient's age to complete this topic Procedures Procedure Name Priority Date/Time Associated Diagnosis Comments BITEWINGS - 2 RADIOGRAPHIC IMAGES Routine 09/23/2022 3:30 PM EST Abscessed tooth from Last 3 Months or Most Recently Relevant to Health Maintenance Insurance * Guarantor: Dede Hairston Account Type Relation to Patient Date of Phone Billing Address Personal/Family Self 1985 [address] [facility] [address] [place] [address] [employer]
== END 2024-11-07 08:35 | disposition home or self-care (01) ==
LOC: HO.HOSX 08:34
PROVIDERS: Visit Provider Physician Assistant
DX: M25.512 Pain in left shoulder (principal); M25.511 Pain in right shoulder; M75.102 Unspecified rotator cuff tear or rupture of left shoulder, not specified as traumatic; M75.101 Unspecified rotator cuff tear or rupture of right shoulder, not specified as traumatic
CPT/HCPCS: 20610; 73030; 99212; J1010; J2003

== ENCOUNTER 2024-11-07 14:01 | Outpatient (AMB) | payer MEDICAID, SELFPAY ==
--- NOTE | 2024-11-07 14:17 | A.OFFVIS_ITS ---
Vital Signs 11/07/24 14:21 Height 5 ft 4 in Weight 136 lb BMI 23.3 Handedness Right Intake Visit Reasons: New prob - B/L shoulder pain Intake Note: Dede is a 39 year old right hand dominant female who presents today for a evaluation of her bilateral shoulder pain. No hx of Injury. Patient reports ongoing pain for about 6 months. She states that both of her shoulder are equal to pain. Her pain is on the anterior aspect of the shoulders and it radiates to the posterior aspect. Patient notices that her pain is worse when she is doing overhead reaching, reaching her back, pornation/supination and laying down on her side. She has tried resting, icing, taking Tylenol/NSAIDs and heating pad with no relief. Allergies No Known Allergies [No Known Allergies*] Allergy (Unknown, Verified 11/07/24 14:21) HPI HPI New prob - B/L shoulder pain: Details: Patient is a 39-year-old right-hand dominant female who presents to the office today for evaluation of bilateral shoulder pain. She denies any acute injury or trauma. Pain has been present for the past 6 months. Both shoulders are equal in pain. She reports that the pain radiates from the anterior to posterior aspect of both shoulders. She reports increased pain with overhead activities as well as reaching behind her back and leg on either side. She has tried rest, ice, heat and Tylenol/NSAIDs with no relief. [facility] Medical History BMI 37.0-37.9, adult GERD (gastroesophageal reflux disease) Shoulder pain, bilateral History of snoring Prediabetes Back pain Morbid obesity Anxiety and depression Otitis externa Surgical History S/P laparoscopic sleeve gastrectomy History of cataract surgery (~2016) Social History Household Members: None Household Members Other:: 4 children Housing: Apartment Are you a primary special needs child caregiver to a significant other at home: Yes (children, oldest 20 year old will assist post-op) Do you presently have visiting nurse or other home services: No Alcohol intake: current Alcohol intake frequency: holidays/special occasions only Patient Tobacco Use Status: Never used Tobacco service: No Review of Systems Const All systems reviewed & are unremarkable except as noted in HPI and below Physical Exam Vital Signs: BMI result Body Mass Index 23.3 Const General: cooperative, healthy appearing and no acute distress Resp Effort & Inspection: normal respiratory effort and able to speak in complete sentences Cardio Rate: regular rate Peripheral pulses: Peripheral pulses 2+ throughout Skin Lesions: no lesions Rashes: no rashes Extrem Other: Right/Left shoulder: Lacking 20 degrees of forward flexion and abduction.. Negative cross-body reach. 4/5 strength with empty can on the left, 3/5 strength with empty can on the right. Negative drop arm. NVI. Office Procedures AMB Joint Injection/Aspiration Joint Injection/Aspiration Primary Site: right shoulder Secondary Site: left shoulder Injected: 80 mg of, DepoMedrol, with 8 mL of (2% plain lido ) and in the subcromial space Approach Used: posterolateral Procedure: The patient tolerated the procedure well, but had some pain with the injection and there was some relief with the local anesthesia Coding 22383 - Bilateral Large Joint Procedure code (CPT) selection complete Assessment & Plan Assessment & Plan (1) Painful arc syndrome of left shoulder: Code(s): M75.102 - Unspecified rotator cuff tear or rupture of left shoulder, not specified as traumatic Category: Medical (2) Painful arc syndrome of right shoulder: Code(s): M75.101 - Unspecified rotator cuff tear or rupture of right shoulder, not specified as traumatic Category: Medical Plan The patient was offered a cortisone injection in bilateral shoulders with 80 mg of DepoMedrol. The patient was explained the risks, benefits, and alternatives to receiving this injection. After receiving consent for the injection, the patient had the procedure done while in the office today. The patient tolerated the procedure well with no complications. We also discussed the role of physical therapy in which the patient is amenable to attend. An order has been placed while in the office today. Follow-up will be in 6 weeks, or sooner if needed. X-rays of bilateral shoulders which were obtained while in the office today and were reviewed by me, Halle Gutierrez PA-C, revealed no acute fracture or dislocation. Orders: Orders PT Evaluation and Treatment Today M75.101 - Unspecified rotator cuff tear or rupture of right shoulder, not specified as traumatic, M75.102 - Unspecified rotator cuff tear or rupture of left shoulder, not specified as traumatic XR shoulder LT min 2V Today M25.519 - Pain in unspecified shoulder XR shoulder RT min 2V Today M25.519 - Pain in unspecified shoulder Coding Level of Care Code New Pt Level 4 (81515) Diagnoses Painful arc syndrome of left shoulder M75.102 Painful arc syndrome of right shoulder M75.101 CPT Codes Coding - 43763 - Bilateral Large Joint: 00794 - Bilateral Large Joint ([id number])
[2024-11-07 14:21] VITALS: BMI 23.3
--- OUTSIDE RECORDS SUMMARY | 2024-11-07 17:06 | XMS_ITS | Clinical Summary ---
Author Organization [employer] [facility] Address [address] [place] [address] [address] [place] [address] Care Team Providers Care Lunchroom Aide Name Role Phone Unavailable Primary Care Provider [...] Phone Billing Address Personal/Family Self 1985 [address] [facility] [address] [place] [address] [employer]
== END 2024-11-07 14:45 | disposition home or self-care (01) ==
LOC: HO.HOS 14:02
PROVIDERS: Visit Provider Physician Assistant
DX: M75.102 Unspecified rotator cuff tear or rupture of left shoulder, not specified as traumatic (principal); M75.101 Unspecified rotator cuff tear or rupture of right shoulder, not specified as traumatic
CPT/HCPCS: 20610; 99204

== ENCOUNTER → 2024-11-07 14:04 | Outpatient (BNV) | payer MEDICAID, SELFPAY | PROVIDERS: Visit Provider Radiology Diagnostic Radiology | DX: M25.512 Pain in left shoulder (principal); M25.511 Pain in right shoulder | CPT/HCPCS: 73030 ==

== ENCOUNTER 2024-11-22 10:31 | Outpatient (AMB) | payer MEDICAID, SELFPAY ==
--- NOTE | 2024-11-22 11:10 | MHC.OFFVISWM ---
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 Presents for 1 year 4 month post op visit. Weight today is 135.4 pounds, with a BMI of 23.3. There has been a 110.4 pound weight loss,(initial weight 245.8 pounds) since starting the program on 03/29/2023 reflecting a 44.9 % total body weight loss and a weight loss of 83.9 pounds since surgery (operative weight 219.3 pounds) reflecting a 38.2 % TBWL since surgery. No complaints of nausea, emesis, abdominal pain or reflux. She has started a celebrate MVI or carmen + D She is satisfied with the current meal plan, although she finds it difficult to do the 2 shakes due to her work hours. She additionally sttaes she has excess skin of her abdomen and has had rashes. She was prescribed topical ointments by her PCP but they didn't work . She was not sure what she was prescribed and she would prefer to be seen by a female practioner. Present meal plan includes: Premier protein RTD 4 oz w 4 oz of almond milk at 7-9, 11-1 Zone perfect bar at 2-4 Meal at 5 or 6 with 4 forks of protein and 4 forks of cooked vegetables 48 oz water? Exercise includes: home stationary bike 6 x per week 300 carmen Any post op complications: none GIUSEPPE: never DM: never HTN: never Hyperlipidemia: never GERD:?0-5 scale ??0 = no symptoms ??1 = symptoms noticeable but not bothersome 2 =symptoms bothersome but not daily ? 3 = symptoms bothersome and daily 4 = symptoms affect daily activities 5 = symptoms are incapacitating, unable to do daily activities ? How bad is the heartburn: 0 ? Heartburn while lying down: 0 ? Heartburn when standing up: 0 ? Heartburn after meals: 0 ? Does heartburn change your diet: 0 ? Does heartburn wake you up from sleep: 0 ? Do you have difficulty swallowin ? Do you have pain with swallowin ? If you take medicine for your reflux, does this affect your daily life: 0 Satisfaction with present condition - satisfied or not satisfied: satisfieed [facility] Medical History BMI 37.0-37.9, adult GERD (gastroesophageal reflux disease) Shoulder pain, bilateral History of snoring Prediabetes Back pain Morbid obesity Anxiety and depression Otitis externa Surgical History S/P laparoscopic sleeve gastrectomy History of cataract surgery (~2015) Social History Household Members: None Household Members Other:: 4 children Housing: Apartment Are you a primary child care director to a significant other at home: Yes (children, oldest 20 year old will assist post-op) Do you presently have visiting nurse or other home services: No Alcohol intake: current Alcohol intake frequency: holidays/special occasions only Patient Tobacco Use Status: Never used Tobacco service: No Physical Exam Vital Signs: Last Vital Signs Temp 98.0 F 11/22/24 11:17 Pulse 67 11/22/24 11:17 BP 118/72 11/22/24 11:17 Pulse Ox 100 11/22/24 11:17 Oxygen Delivery Method Room Air 11/22/24 11:17 BMI result Body Mass Index 23.2 Const General: cooperative and no acute distress Orientation/consciousness: patient oriented x3 Resp Effort & Inspection: normal respiratory effort Auscultation: clear to auscultation bilaterally Cardio Rate: regular rate Rhythm: regular rhythm GI Inspection: Yes normal to inspection and Yes incision (well healed) Palpation (GI): Soft to palpation and no masses Skin Other: inable to eval as pt would prefer a female practitioner Neuro General: patient oriented x3 Assessment & Plan Assessment & Plan (1) S/P laparoscopic sleeve gastrectomy: Code(s): Z98.84 - Bariatric surgery status Category: Surgical Plan: Patient will continue her current meal plan except have the whole premier protein ready to drink shake, split in half, half at 8-10 and the other half from 11-1. Encouraged to continue her exercise routine. Encouraged to get labs done which were ordered in March although she states that the bullet charging machine operator had difficulty accessing her vein. We will have her follow-up with my colleague Myrtle in the next 1-2 weeks (2) Excess skin: Code(s): L98.7 - Excessive and redundant skin and subcutaneous tissue Category: Medical Plan: Patient has been prescribed topical ointments for her rash by her primary care physician. She states that these did not work although does not know what was prescribed. She will take a picture of the ointments that she was prescribed and bring them with her to her next appointment. Additionally, she would prefer to be seen by a female practitioner so exam of her skin was unable to be done by me today.
[2024-11-22 11:17] VITALS: BP 118/72; PULSE 67; TEMP 36.7; O2SAT 100; BMI 23.2
--- OUTSIDE RECORDS SUMMARY | 2024-11-22 11:36 | XMS_ITS | Clinical Summary ---
Author Organization [employer] [facility] Address [address] [place] [address] [address] [place] [address] Care Team Providers Care Grass Farmer Name Role Phone Unavailable Primary Care Provider [...] Phone Billing Address Personal/Family Self 1985 [address] [facility] [address] [place] [address] [employer]
== END 2024-11-22 11:42 | disposition home or self-care (01) ==
LOC: HO.HBS 10:31
PROVIDERS: Visit Provider Physician Assistant Surgical
DX: L98.7 Excessive and redundant skin and subcutaneous tissue (principal); Z98.84 Bariatric surgery status
CPT/HCPCS: 99213

== ENCOUNTER → 2024-11-22 10:31 | Outpatient (BNVA) | payer MEDICAID, SELFPAY | PROVIDERS: Visit Provider Physician Assistant Surgical | DX: L98.7 Excessive and redundant skin and subcutaneous tissue (principal); Z98.84 Bariatric surgery status | CPT/HCPCS: 99212 ==

== ENCOUNTER 2024-12-02 12:38 | Outpatient (AMB) | payer MEDICAID, SELFPAY ==
--- NOTE | 2024-12-02 12:41 | MHC.OFFVISWM ---
VS Expanded 12/02/24 12:48 BP 124/70 Blood Pressure Location Rt brachial Blood Pressure Position Sitting Pulse 73 Pulse Source Pulse Oximeter Temp 97.6 F Temperature Source Temporal Artery Scan Pulse Oximetry 100 Oxygen Delivery Method Room Air Height 5 ft 4 in Weight 138 lb 6.4 oz BMI 23.8 Body Fat % 26.2 Body Fat Mass 36.2 Fat Free Mass 102.0 Visceral Fat Rating 4.0 Body Water % 52.8 Body Water Mass 73.0 Muscle Mass/Score 96.8 Basal Metabolic Rate/Score 1,372 Intake Visit Reasons: (OV) PO LSG 08/02/23 Allergies No Known Allergies [No Known Allergies*] Allergy (Unknown, Verified 12/02/24 12:47) Medication List - Last Reconciled 12/02/24 by VICKY Abreu escitalopram oxalate 10 mg PO DAILY lorazepam 1 mg PO DAILY PRN HPI Comments Details: This?is a?39?yo female who is s/p LSG 08/02/2023. Presents for 16 month post op visit. She has achieved a healthy BMI. There has been a 107.4 pound weight loss (initial weight 245.8 pounds) since starting the program on 03/29/2023 reflecting a 43.6 % total body weight loss. No complaints of nausea, emesis, abdominal pain or reflux, or constipation. Present meal plan includes: Premier protein ready to drink shake, split in half, half at 8-10 and the other half from 11-1 ZP bar 2-4 Meal at 5 or 6 with 4 forks of protein and 4 forks of cooked vegetables 48 oz water Exercise includes: home stationary bike 6 x per week 300 carmen Pt reports excess skin of her abdomen and has had rashes. She is experiencing these rashes in lower skin fold as well as belly button and under breast tissue. She has experienced areas of skin opening up/tearing in these folds. Has to use a towel/cloth between skin folds to try to avoid this. Moisture collects in the skin folds and smells unpleasant so she has to shower more often/clean the areas more often than usual. She was prescribed topical ointments by her PCP but these were ineffective. She has tried this for several months with no improvement. She notes she has to wear compressive garments at all times to help hold the skin in place and prevent movement during activity. The skin is heavy, and pulls on her upper back; she has been seen by orthopedics due to shoulder pain, and they felt that the extra skin may be contributing to her shoulder pain as imaging/x-rays did not show any obvious pathology. Typical daily movements have become more difficult, such as walking, bending, squatting down as the excess skin can get in the way. [facility] Medical History BMI 37.0-37.9, adult GERD (gastroesophageal reflux disease) Shoulder pain, bilateral History of snoring Prediabetes Back pain Morbid obesity Anxiety and depression Otitis externa Surgical History S/P laparoscopic sleeve gastrectomy History of cataract surgery (~2015) Social History Household Members: None Household Members Other:: 4 children Housing: Apartment Are you a primary healthcare or medical to a significant other at home: Yes (children, oldest 20 year old will assist post-op) Do you presently have visiting nurse or other home services: No Alcohol intake: current Alcohol intake frequency: holidays/special occasions only Patient Tobacco Use Status: Never used Tobacco service: No Physical Exam Const General: cooperative, comfortable and no acute distress Orientation/consciousness: patient oriented x3 GI Other: soft, nontender, nondistended, incisions well healed, no hernia, no masses Grade II pannus, areas of skin with previous healing of open areas, and on left lateral aspect of lower skin fold there is an open area at the crease Neuro General: patient oriented x3 Assessment & Plan Assessment & Plan (1) Excess skin: Code(s): L98.7 - Excessive and redundant skin and subcutaneous tissue Category: Medical (2) S/P laparoscopic sleeve gastrectomy: Code(s): Z98.84 - Bariatric surgery status Category: Surgical Plan Pt has done very well achieving a healthy weight/BMI 16mo postop. She is now having issues of excess skin of abdomen resulting in painful rashes. She will text me the name of the prescription cream her PCP gave her. She is also interested in a breast lift. Discussed referall to a plastic surgeon if she wants to pursue this. RTC 2 months. Her insurance requires her to be 18mo postop for skin removal surgery approval.
[2024-12-02 12:48] VITALS: BP 124/70; PULSE 73; TEMP 36.4; O2SAT 100; BMI 23.8
--- OUTSIDE RECORDS SUMMARY | 2024-12-02 13:01 | XMS_ITS | Clinical Summary ---
Author Organization [employer] Address [address] [facility] [address] [place] [address] Care Team Providers Care Application Development Consultant Name Role Phone Unavailable Primary Care Provider [...] Phone Billing Address Personal/Family Self 1985 [address] [facility] [address] [place] [address] [facility]
== END 2024-12-02 13:23 | disposition home or self-care (01) ==
LOC: HO.HBS 12:38
PROVIDERS: PCP Internal Medicine; Visit Provider Physician Assistant Surgical
DX: L98.7 Excessive and redundant skin and subcutaneous tissue (principal); Z98.84 Bariatric surgery status
CPT/HCPCS: 99214

== ENCOUNTER → 2024-12-02 12:38 | Outpatient (BNVA) | payer MEDICAID, SELFPAY | PROVIDERS: PCP Internal Medicine; Visit Provider Physician Assistant Surgical | DX: L98.7 Excessive and redundant skin and subcutaneous tissue (principal); Z98.84 Bariatric surgery status | CPT/HCPCS: 99212 ==

== ENCOUNTER 2025-02-11 09:38 | Outpatient (AMB) | payer MEDICAID, SELFPAY ==
--- NOTE | 2025-02-11 09:40 | A.OFFVIS_ITS ---
Intake Visit Reasons: OV - B/L shoulder pain, last inj 11/07/24 Intake Note: Dede is a 39 year old right hand dominant female who presents today for a follow up of her bilateral shoulder pain, last injection 11/07/24. At her last visit she was given an injection and a referral to physical therapy. Patient reports that her right shoulder is the worst from her left shoulder. She states that her last injections gave her about 2 months of relief and would like to relief. Allergies No Known Allergies (No Known Allergies*) Allergy (Unknown, Verified 02/11/25 10:12) HPI HPI OV - B/L shoulder pain, last inj 11/07/24: Details: Ms. Marika Daniel is a 39-year-old female who presents to the office today for bilateral repeat cortisone injections. Her last cortisone injection was which gave her about 2 months of relief. [facility] Medical History BMI 37.0-37.9, adult GERD (gastroesophageal reflux disease) Shoulder pain, bilateral History of snoring Prediabetes Back pain Morbid obesity Anxiety and depression Otitis externa Surgical History S/P laparoscopic sleeve gastrectomy History of cataract surgery (~2015) Social History Household Members: None Household Members Other:: 4 children Housing: Apartment Are you a primary health care facilities inspector to a significant other at home: Yes (children, oldest 20 year old will assist post-op) Do you presently have visiting nurse or other home services: No Alcohol intake: current Alcohol intake frequency: holidays/special occasions only Patient Tobacco Use Status: Never used Tobacco service: No Review of Systems Const All systems reviewed & are unremarkable except as noted in HPI and below Physical Exam Const General: cooperative, healthy appearing and no acute distress Resp Effort & Inspection: normal respiratory effort and able to speak in complete se ntences Cardio Rate: regular rate Peripheral pulses: Peripheral pulses 2+ throughout Skin Lesions: no lesions Rashes: no rashes Extrem Other: Right/Left shoulder: Lacking 20 degrees of forward flexion and abduction.. Negative cross-body reach. 4/5 strength with empty can on the left, 3/5 strength with empty can on the right. Negative drop arm. NVI. Office Procedures AMB Joint Injection/Aspiration Joint Injection/Aspiration Primary Site: right shoulder Secondary Site: left shoulder Injected: 80 mg of, DepoMedrol, with 8 mL of (2% plain lidocaine) and in the subcromial space Approach Used: posterolateral Procedure: The patient tolerated the procedure well, but had some pain with the injection and there was some relief with the local anesthesia Coding - Bilateral Large Joint Procedure code (CPT) selection complete Assessment & Plan Assessment & Plan (1) Painful arc syndrome of left shoulder: Code(s): M75.102 - Unspecified rotator cuff tear or rupture of left shoulder, not specified as traumatic Category: Medical (2) Painful arc syndrome of right shoulder: Code(s): M75.101 - Unspecified rotator cuff tear or rupture of right shoulder, not specified as traumatic Category: Medical Plan The patient was offered a cortisone injection in bilateral shoulders with 80 mg of DepoMedrol. The patient was explained the risks, benefits, and alternatives to receiving this injection. After receiving consent for the injection, the patient had the procedure done while in the office today. The patient tolerated the procedure well with no complications. Follow-up will be PRN, or sooner if needed Coding Level of Care Code Est Pt Level 3 (73175) Diagnoses Painful arc syndrome of left shoulder M75.102 Painful arc syndrome of right shoulder M75.101 CPT Codes Coding - 96145 - Bilateral Large Joint: 78525 - Bilateral Large Joint ([id number])
== END 2025-02-11 10:23 | disposition home or self-care (01) ==
LOC: HO.HOS 09:38
PROVIDERS: PCP Internal Medicine; Visit Provider Physician Assistant
DX: M75.102 Unspecified rotator cuff tear or rupture of left shoulder, not specified as traumatic (principal); M75.101 Unspecified rotator cuff tear or rupture of right shoulder, not specified as traumatic
CPT/HCPCS: 20610

== ENCOUNTER → 2025-02-11 09:38 | Outpatient (BNVA) | payer MEDICAID, SELFPAY | PROVIDERS: PCP Internal Medicine; Visit Provider Physician Assistant | DX: M75.102 Unspecified rotator cuff tear or rupture of left shoulder, not specified as traumatic (principal); M75.101 Unspecified rotator cuff tear or rupture of right shoulder, not specified as traumatic | CPT/HCPCS: 20610; J1010; J2003 ==

== ENCOUNTER 2025-02-17 13:00 | Outpatient (AMB) | payer MEDICAID, SELFPAY ==
--- NOTE | 2025-02-17 13:03 | A.OFFVIS_ITS ---
VS Expanded 02/17/25 13:11 BP 126/63 Blood Pressure Location Rt brachial Blood Pressure Position Sitting Pulse 54 Pulse Source Pulse Oximeter Temp 97.3 F Temperature Source Temporal Artery Scan Pulse Oximetry 100 Oxygen Delivery Method Room Air Height 5 ft 4 in Weight 138 lb 12.8 oz BMI 23.8 Body Fat % 24.2 Body Fat Mass 33.6 Fat Free Mass 105.2 Visceral Fat Rating 3.0 Body Water % 54.1 Body Water Mass 75.0 Muscle Mass/Score 99.8 Basal Metabolic Rate/Score 1,405 Intake Visit Reasons: (OV) PO LSG 08/02/23 Allergies No Known Allergies (No Known Allergies*) Allergy (Unknown, Verified 02/17/25 13:07) Medication List - Last Reconciled 02/17/25 by VICKY Abreu escitalopram oxalate 10 mg PO DAILY lorazepam 1 mg PO DAILY PRN HPI Comments Details: This?is a?39?yo female who is s/p LSG 08/02/2023. Presents for 18 month post op visit. She has achieved a healthy BMI. There has been a 107 pound weight loss (initial weight 245.8 pounds) since starting the program on 03/29/2023 reflecting a 43.5 % total body weight loss. No complaints of nausea, emesis, abdominal pain or reflux, or constipation. Present meal plan includes: Premier protein ready to drink shake, split in half, half at 8-10 and the other half from 11-1 ZP bar 2-4 Meal at 5 or 6 with 4 forks of protein and 4 forks of cooked vegetables 48 oz water Exercise includes: home stationary bike 6 x per week 300 carmen Pt reports excess skin of her abdomen and has had rashes. She is experiencing these rashes in lower skin fold as well as belly button and under breast tissue. She has experienced areas of skin opening up/tearing in these folds. The skin peels away and causes a burning feeling. Has to use a towel/cloth between skin folds to try to avoid this. Moisture collects in the skin folds and smells unpleasant so she has to shower more often/clean the areas more often than usual. She was prescribed prescription strength topical ointments by her PCP but these were ineffective. She has tried this for several months with no improvement. She notes she has to wear compressive garments at all times to help hold the skin in place and prevent movement during activity. The skin is heavy, and pulls on her upper back; she has been seen by orthopedics due to shoulder pain, and they felt that the extra skin may be contributing to her shoulder pain as imaging/x-rays did not show any obvious pathology. Typical daily movements have become more difficult, such as walking, bending, squatting down as the excess skin can get in the way. [facility] Medical History BMI 37.0-37.9, adult GERD (gastroesophageal reflux disease) Shoulder pain, bilateral History of snoring Prediabetes Back pain Morbid obesity Anxiety and depression Otitis externa Surgical History S/P laparoscopic sleeve gastrectomy History of cataract surgery (~2015) Social History Household Members: None Household Members Other:: 4 children Housing: Apartment Are you a primary sub acute care nurse to a significant other at home: Yes (children, oldest 20 year old will assist post-op) Do you presently have visiting nurse or other home services: No Alcohol intake: current Alcohol intake frequency: holidays/special occasions only Patient Tobacco Use Status: Never used Tobacco service: No Physical Exam Const General: cooperative, comfortable and no acute distress Orientation/consciousness: patient oriented x3 GI Other: soft, nontender, nondistended, incisions well healed, no hernia, no masses Grade II pannus Neuro General: patient oriented x3 Assessment & Plan Assessment & Plan (1) S/P laparoscopic sleeve gastrectomy: Code(s): Z98.84 - Bariatric surgery status Category: Surgical (2) Excess skin: Code(s): L98.7 - Excessive and redundant skin and subcutaneous tissue Category: Medical Plan Pt has done very well achieving a healthy weight/BMI 18mo postop. S She is experiencing issues of excess skin of abdomen resulting in frequent painful, itchy, malodorous rashes which are unrelieved by prescription topical antifungals. In addition she is experiencing limitations/discomfort in activities of daily living, including walking, bending. She requires the use of special clothing at all times to try to prevent discomfort but her issues have not been completely relieved by conservative measures. She would benefit from definitive treatment of panniculectomy. She is also interested in a breast lift. Discussed referal to a plastic surgeon if she wants to pursue this. At this time she agrees to move forward with us for panniculectomy only and will let us know if she decides she would like a second opinion. Photos taken today. Will submit to insurance.
[2025-02-17 13:11] VITALS: BP 126/63; PULSE 54; TEMP 36.3; O2SAT 100; BMI 23.8
--- OUTSIDE RECORDS SUMMARY | 2025-02-17 13:40 | XMS_ITS | Clinical Summary ---
Author Organization [employer] Address [address] [facility] [address] [place] [address] Care Team Providers Care Metal Window Screen Assembler Name Role Phone Unavailable Primary Care Provider [...] by mouth at bedtime. 09/19/2022 Active Immunizations Immunization Administration Dates Next Due Pfizer Covid-19 Vaccine [...] 1984 HIV Screening 1984 SDOH Screening 1984 Disability Screening 1984 Alcohol/Substance Use Screening 1996 Family Planning (PISQ) 1999 HPV Vaccines (1 - 3-dose series) 1999 Hepatitis C Screening 2002 Hepatitis B Vaccines (1 of 3 - 19+ 3-dose series) 2003 Pap Smear 2005 Cervical Cancer Screening 2014 HPV/Cotest 2014 Tobacco Screening 09/24/2023 09/23/2022 Dental X-Ray: Bitewings 09/25/2023 09/23/2022 COVID-19 Vaccine (2 - 2023-2 5 season) 2024 10/11/2022 Mammogram 2024 Influenza Vaccine (#1) 2025 DTaP/Tdap/Td Vaccines (2 - T d or [...] patient's age to complete this topic Meningococcal B Vaccine Aged Out No l onger eligible based on patient's age to complete this topic Meningococcal Vaccine Aged Out No anny marc eligible based on patient's age to complete this topic Pneumococcal Vaccine: Pediat rics (0 to 5 Years) and At-Risk Patients (6 to 49) Years Aged Out No longer eligi ble based [...] Date of Phone Billing Address Personal/Family Self [address]
== END 2025-02-17 13:45 | disposition home or self-care (01) ==
LOC: HO.HBS 13:01
PROVIDERS: PCP Internal Medicine; Visit Provider Physician Assistant Surgical
DX: L98.7 Excessive and redundant skin and subcutaneous tissue (principal); Z98.84 Bariatric surgery status
CPT/HCPCS: 99214

== ENCOUNTER → 2025-02-17 13:00 | Outpatient (BNVA) | payer MEDICAID, SELFPAY | PROVIDERS: PCP Internal Medicine; Visit Provider Physician Assistant Surgical | DX: Z98.84 Bariatric surgery status (principal); L98.7 Excessive and redundant skin and subcutaneous tissue | CPT/HCPCS: 99212 ==

== ENCOUNTER 2025-03-10 08:55 | Outpatient (AMB) | payer MEDICAID, SELFPAY ==
--- NOTE | 2025-03-10 09:18 | MHC.OFFVISWM ---
VS Expanded 03/10/25 09:30 BP 118/58 L Blood Pressure Location Rt brachial Blood Pressure Position Sitting Pulse 54 Pulse Source Pulse Oximeter Temp 97.7 F Temperature Source Temporal Artery Scan Pulse Oximetry 100 Oxygen Delivery Method Room Air Height 5 ft 4 in Weight 138 lb 9.6 oz BMI 23.8 Body Fat % 28 Body Fat Mass 38.8 Fat Free Mass 99.6 Visceral Fat Rating 4 Body Water % 51.4 Body Water Mass 71.2 Muscle Mass/Score 94.6 Basal Metabolic Rate/Score 1,348 Intake Visit Reasons: (OV) PO LSG 08/02/23 *SEE COMMENTS* Allergies No Known Allergies (No Known Allergies*) Allergy (Unknown, Verified 03/10/25 09:32) HPI Comments Details: This?is a?39?yo female who is s/p LSG 08/02/2023. Presents for her preop visit for panniculectomy Overall weight loss: 106.9 lbs, or 43.5% TBWL She has achieved a healthy BMI of 23.9 kg/m2. No complaints of nausea, emesis, abdominal pain or reflux, or constipation. Present meal plan includes: Premier protein ready to drink shake, split in half, half at 8-10 and the other half from 11-1 Zone Perfect bar 2-4 Meal at 5 or 6 with 4 forks of protein and 4 forks of cooked vegetables 48 oz water Exercise includes: home stationary bike 6 x per week 300 carmen On exam: the abdominal pannus hangs over the pubis at a distance of 6cm. There is an active rash present and skin breakdown There are significant rash in both arms with skin breakdown [facility] Medical History BMI 37.0-37.9, adult GERD (gastroesophageal reflux disease) Shoulder pain, bilateral History of snoring Prediabetes Back pain Morbid obesity Anxiety and depression Otitis externa Surgical History S/P laparoscopic sleeve gastrectomy History of cataract surgery (~2015) Social History Household Members: None Household Members Other:: 4 children Housing: Apartment Are you a primary primary health care nurse to a significant other at home: Yes (children, oldest 20 year old will assist post-op) Do you presently have visiting nurse or other home services: No Alcohol intake: current Alcohol intake frequency: holidays/special occasions only Patient Tobacco Use Status: Never used Tobacco service: No Physical Exam GI Inspection: Yes incision (well healed) Palpation (GI): Soft to palpation and Other GI palpation findings present (significant rash with skin breakdown under the pannus) Extrem General: Yes other (significant rash with skin breakdown at the medial aspect of the arm) Right upper extremity: shoulder/upper arm (significant rash with skin breakdown at the medial aspect of the arm) Left upper extremity: shoulder/upper arm (significant rash with skin breakdown at the medial aspect of the arm) Assessment & Plan Assessment & Plan (1) Excess skin: Code(s): L98.7 - Excessive and redundant skin and subcutaneous tissue Category: Medical Plan: 1. Plan for panniculectomy. Risks of infection, bleeding, asymmetry, wound dehiscence and blood clots were discussed with the patient. The patient will also need bilateral brachioplasties as she has developed severe rashes in both arms. 2. You will have a drain the abdomen that may stay a few weeks before it may be removed 3. You will need to be doing sponge baths the first 1-2 weeks. No showers. You need to have help at home to get you up and limit your activities as much as possible for at least the 4-6 weeks after surgery 4. We will arrange for a visiting nurse to come at home to help you with dressing changes and send me pictures of the procedures. We will send at your home supplies for the dressing changes. 5. Change nutritional plan to 4oz of premade Premier shake mixed with 4oz almond milk at 8am-10am, two Zone Perfect protein bars at 11am-1pm and 2pm-4pm, one meal at 5pm (4 forks of protein and 4 forks of salad or vegetables) and one more Premier shake mixing 4oz of premade Premier shake mixed with 4oz almond milk at 7pm-9pm. This will improve weight loss and healing after surgery. 6. Continue all vitamins 7. Do blood work not fasting any day between Monday and Monday of the week before your surgery date and order picker/assembler the antibiotic, stool softener and anti-emetic prescriptions from your pharmacy. 8. Start the stool softener Colace now and start taking one pill per day, daily until the surgery even if you are not constipated. 9. Risks and complications were discussed the possibility of bleeding that may require transfusion, loss of the umbilicus, wound dehiscence or infection, dog ears , flap asymmetry. We also discussed the importance of strict avoidance of weight lifting. 10. Avoid aspirin, motrin, ibuprofen, Excedrin, Meloxicam, Aleve, Advil, Naproxyn. Only Tylenol Orders: Orders Partial Thromboplastin Time Today Z01.818 - Encounter for other preprocedural examination Prothrombin Time INR Today Z01.818 - Encounter for other preprocedural examination Type and Screen Today Z01.818 - Encounter for other preprocedural examination Medications: New docusate sodium (Colace) 100 mg PO DAILY 90 caps 0RF K59.00 - Constipation, unspecified cephalexin 500 mg PO Q12H 60 caps 2RF M79.3 - Panniculitis, unspecified ondansetron 4 mg PO Q12H 20 tabs 0RF nausea and vomiting R11.0 - Nausea
--- OUTSIDE RECORDS SUMMARY | 2025-03-10 09:24 | XMS_ITS | Clinical Summary ---
Author Organization [employer] Address [address] [facility] [address]t [place] [address] Care Team Providers Care Vegetable Tester Name Role Phone Unavailable Primary Care Provider [...] of Phone Billing Address Personal/Family Self [address]
[2025-03-10 09:30] VITALS: BP 118/58; PULSE 54; TEMP 36.5; O2SAT 100; BMI 23.8
== END 2025-03-10 09:40 | disposition home or self-care (01) ==
LOC: HO.HBS 08:56
PROVIDERS: PCP Internal Medicine; Visit Provider Surgery
DX: L98.7 Excessive and redundant skin and subcutaneous tissue (principal)
CPT/HCPCS: 99499

== ENCOUNTER 2025-03-26 12:15 | Outpatient (REF) | payer MEDICAID, SELFPAY ==
--- OUTSIDE RECORDS SUMMARY | 2025-03-26 14:52 | XMS_ITS | Clinical Summary ---
Author Organization [employer] Address [address] [facility] [address] [place] [address] Care Team Providers Care Harp Regulator Name Role Phone Unavailable Primary Care Provider [...] of Phone Billing Address Personal/Family Self [address]
[2025-03-26 15:01] LABS: CT PCR Urine NOT DETECTED (Not Detect.); NG PCR Urine NOT DETECTED (Not Detect.)
== END 2025-03-26 12:16 | disposition home or self-care (01) ==
LOC: HO.10HDLNP 12:15
PROVIDERS: Visit Provider Internal Medicine
DX: L03.114 Cellulitis of left upper limb (principal); Z11.3 Encounter for screening for infections with a predominantly sexual mode of transmission; Z11.8 Encounter for screening for other infectious and parasitic diseases
CPT/HCPCS: 87491; 87591

== ENCOUNTER 2025-04-11 08:19 | Outpatient (AMB) | payer MEDICAID, SELFPAY ==
--- OUTSIDE RECORDS SUMMARY | 2025-04-11 08:49 | XMS_ITS | Clinical Summary ---
Author Organization [employer] Address [address] [facility] 7t [place] [address] Care Team Providers Care Cut Press Operator Name Role Phone Unavailable Primary Care Provider [...] of Phone Billing Address Personal/Family Self [address]
--- NOTE | 2025-04-11 12:10 | MHC.OFFVISWM ---
VS Expanded 04/11/25 12:17 Height 5 ft 4 in Weight 140 lb BMI 24.0 Intake Visit Reasons: TV Pre Op Panniculectomy 04/24/25 Allergies No Known Allergies (No Known Allergies*) Allergy (Unknown, Verified 04/11/25 12:10) Medication List - Last Reconciled 04/11/25 by Obdulio Davies MD cephalexin 500 mg PO Q12H cephalexin 500 mg PO Q12H docusate sodium (Colace) 100 mg PO DAILY docusate sodium (Colace) 100 mg PO DAILY escitalopram oxalate 10 mg PO DAILY lorazepam 1 mg PO DAILY PRN ondansetron 4 mg PO Q12H ondansetron 4 mg PO Q12H HPI HPI TV Pre Op Panniculectomy 04/24/25: Details: Start time: 12.05pm, End time: 12.25pm ?I spent 15 minutes speaking with the patient on the phone plus an additional 5 minutes reviewing and updating records for a total of 20 minutes HPI Comments Details: Overall weight loss: 107.2lbs, or 43.6% TBWL Is doing 3 Premier shakes (4oz of Premier and 4 oz almond milk), one Zone Perfect protein bar and one meal (4 forks each) Exercise: is doing the stationary bike 6/week for 225 calories PFS Medical History (Updated 04/11/25 @ 12:07 by Obdulio Davies MD) Postgastrectomy malabsorption BMI 37.0-37.9, adult GERD (gastroesophageal reflux disease) Shoulder pain, bilateral History of snoring Prediabetes Back pain Morbid obesity Anxiety and depression Otitis externa Surgical History S/P laparoscopic sleeve gastrectomy History of cataract surgery (~2015) Social History Household Members: None Household Members Other:: 4 children Housing: Apartment Are you a primary reservoir caretaker to a significant other at home: Yes (children, oldest 20 year old will assist post-op) Do you presently have visiting nurse or other home services: No Alcohol intake: current Alcohol intake frequency: holidays/special occasions only Patient Tobacco Use Status: Never used Tobacco service: No Telehealth Telehealth Telehealth Platform: Telephone Location of provider rendering services: practice address Location of patient: address on file Patient Identification confirmed using: Name, : Yes Telehealth method: voice only Patient verbally consented to treatment: Yes Patient verbally consented to billing insurance company: Yes Patient informed of any privacy concerns related to visit: Yes Minutes spent on Phone/Video with Pt.: 20 Assessment & Plan Assessment & Plan (1) Excess skin: Code(s): L98.7 - Excessive and redundant skin and subcutaneous tissue Category: Medical Plan: 1. Plan for panniculectomy. Risks of infection, bleeding, asymmetry, wound dehiscence and blood clots were discussed with the patient. 2. You will have a drain the abdomen that may stay a few weeks before it may be removed 3. You will need to be doing sponge baths the first 1-2 weeks. No showers. You need to have help at home to get you up and limit your activities as much as possible for at least the 4-6 weeks after surgery 4. We will arrange for a visiting nurse to come at home to help you with dressing changes and send me pictures of the procedures. We will send at your home supplies for the dressing changes. 5. Continue present nutritional plan of3 Premier shakes (4oz of Premier and 4 oz almond milk), one Zone Perfect protein bar and one meal (4 forks each). Please avoid salt completely starting now. This will improve weight loss and healing after surgery. 6. Continue all your medications until the day after surgery 7. Start the Colace now and take one per day, daily. 8. 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 Risks and complications were discussed the possibility of bleeding that may require transfusion, loss of the umbilicus, wound dehiscence or infection, dog ears , flap asymmetry. We also discussed the importance of strict avoidance of weight lifting. 10. Avoid aspirin, motrin, ibuprofen, Excedrin, Meloxicam, Aleve, Advil, Naproxyn. Only Tylenol Orders: Orders TSH reflex Free T4 Today K91.2 - Postsurgical malabsorption, not elsewhere classified, Z90.3 - Acquired absence of stomach [part of] Vitamin A Today K91.2 - Postsurgical malabsorption, not elsewhere classified, Z90.3 - Acquired absence of stomach [part of] Hemoglobin A1c Today K91.2 - Postsurgical malabsorption, not elsewhere classified, Z90.3 - Acquired absence of stomach [part of] Lipid Panel Today K91.2 - Postsurgical malabsorption, not elsewhere classified, Z90.3 - Acquired absence of stomach [part of] Vitamin B12 Today K91.2 - Postsurgical malabsorption, not elsewhere classified, Z90.3 - Acquired absence of stomach [part of] Vitamin D 25-OH Total Today K91.2 - Postsurgical malabsorption, not elsewhere classified, Z90.3 - Acquired absence of stomach [part of] Ferritin Today K91.2 - Postsurgical malabsorption, not elsewhere classified, Z90.3 - Acquired absence of stomach [part of] Zinc Today K91.2 - Postsurgical malabsorption, not elsewhere classified, Z90.3 - Acquired absence of stomach [part of] Comprehensive Met. Panel Today K91.2 - Postsurgical malabsorption, not elsewhere classified, Z90.3 - Acquired absence of stomach [part of] Prothrombin Time INR Today K91.2 - Postsurgical malabsorption, not elsewhere classified, Z90.3 - Acquired absence of stomach [part of] Vitamin B1 Today K91.2 - Postsurgical malabsorption, not elsewhere classified, Z90.3 - Acquired absence of stomach [part of] Type and Screen Today K91.2 - Postsurgical malabsorption, not elsewhere classified, Z90.3 - Acquired absence of stomach [part of] C Reactive Protein Today K91.2 - Postsurgical malabsorption, not elsewhere classified, Z90.3 - Acquired absence of stomach [part of] Partial Thromboplastin Time Today K91.2 - Postsurgical malabsorption, not elsewhere classified, Z90.3 - Acquired absence of stomach [part of] Complete Blood Count Auto Diff Today K91.2 - Postsurgical malabsorption, not elsewhere classified, Z90.3 - Acquired absence of stomach [part of] Insulin Today K91.2 - Postsurgical malabsorption, not elsewhere classified, Z90.3 - Acquired absence of stomach [part of] IRON PROFILE Today K91.2 - Postsurgical malabsorption, not elsewhere classified, Z90.3 - Acquired absence of stomach [part of] Medications: New docusate sodium (Colace) 100 mg PO DAILY 90 caps 0RF K59.00 - Constipation, unspecified cephalexin 500 mg PO Q12H 60 caps 0RF M79.3 - Panniculitis, unspecified ondansetron Only take one every 12 hours as needed if you have nausea 4 mg PO Q12H 20 tabs 0RF nausea and vomiting R11.0 - Nausea
[2025-04-11 12:17] VITALS: BMI 24.0
== END 2025-04-11 12:26 | disposition home or self-care (01) ==
LOC: HO.HBS 08:19
PROVIDERS: PCP Internal Medicine; Visit Provider Surgery
DX: L98.7 Excessive and redundant skin and subcutaneous tissue (principal)
CPT/HCPCS: 99213

== ENCOUNTER 2025-04-16 09:32 | Outpatient (REF) | payer MEDICAID, SELFPAY ==
[2025-04-16 10:30] LABS: MANUAL DIFF FLAG NO
[2025-04-16 11:10] LABS: INTERNATIONAL NORM RATIO 1.0 (0.9-1.1); Prothrombin Time 11.3 SEC (10.9-12.4)
[2025-04-16 11:11] LABS: Hematocrit 36.8 % (37.0-47.0); Hemoglobin 12.3 g/dl (12.0-16.0); Imm Gran Abs Auto 0.01 X10*3/uL (0.00-0.03); Imm Gran Pct Auto 0.2 % (0.0-0.4); Lymphocytes Absolute Auto 1.6 X10*3/uL (1.2-4.9); Mean Corpuscular HGB Conc 33.4 g/dl (31.0-35.0); Mean Corpuscular Hemoglobin 28.5 pg (27.0-33.0); Mean Corpuscular Volume 85.2 fL (80.0-98.0); NRBC Abs Auto 0.000 X10*3/uL (0.0-0.012); NRBC Pct Auto 0.0 /100WBC (0.0-0.2); Platelet Count 168 X10*3/uL (160-400); Red Blood Count 4.32 X10*6/uL (4.20-5.50); White Blood Count 4.2 X10*3/uL (4.8-10.8)
[2025-04-16 11:12] LABS: Partial Thromboplastin Time 30.4 SEC (26.7-34.1)
--- OUTSIDE RECORDS SUMMARY | 2025-04-16 11:26 | XMS_ITS | Clinical Summary ---
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
[2025-04-16 12:09] LABS: Alanine Aminotransferase 7 U/L (0-31); Albumin Level 4.1 g/dL (3.5-5.0); Alkaline Phosphatase 90 U/L (39-117); Anion Gap 11 (12-20); Aspartate Amino Transferase 16 U/L (5-31); Blood Urea Nitrogen 11 mg/dL (9-16); Calcium 8.8 mg/dL (8.4-10.2); Carbon Dioxide 27 mmol/L (22-29); Chloride 108 mmol/L (96-108); Cholesterol 137 mg/dL (<200); Estimated Glomerular Filt Rate > 60; Ferritin 114 ng/mL (10-250); HDL Cholesterol 51 mg/dL (>40); Iron 77 mcg/dL (30-160); Percent Iron Saturation 31 % (15-50); Potassium 3.7 mmol/L (3.3-5.1); Sodium 142 mmol/L (135-145); Total Iron Binding Capacity 246 mcg/dL (228-428); Total Protein 7.0 g/dL (6.5-8.0); Triglycerides 64 mg/dL (<150); Unsaturated Iron Binding 169 ug/dL
[2025-04-16 12:12] LABS: Vitamin B12 291 pg/mL (200-900)
== END 2025-04-16 09:33 | disposition home or self-care (01) ==
LOC: HO.LAB 09:32
PROVIDERS: PCP Internal Medicine; Visit Provider Surgery
DX: K91.2 Postsurgical malabsorption, not elsewhere classified (principal); Z90.3 Acquired absence of stomach [part of]
CPT/HCPCS: 36415; 80053; 80061; 82306; 82607; 82728; 83036; 83525; 83540; 84425; 84443; 84590; 84630; 85025; 85610; 85730; 86140

== ENCOUNTER 2025-04-24 08:28 | Day surgery (SDC) | payer MEDICAID, SELFPAY ==
--- OUTSIDE RECORDS SUMMARY | 2025-04-01 16:38 | XMS_ITS | Clinical Summary ---
Author Organization [employer] Address [address] [facility] [address]t [place] [address] Care Team Providers Care Clinical Assistant Professor Name Role Phone Unavailable Primary Care Provider [...] 09/24/2023 09/23/2022 Dental X-Ray: Bitewings 09/25/2023 09/23/2022 Mammogram 2024 COVID-19 Vaccine (2 - 2024-2 6 season) 2025 10/11/2022 Influenza Vaccine (#1) 2025 DTaP/Tdap/Td Vaccines (2 [...] of Phone Billing Address Personal/Family Self [address]
[2025-04-17 10:39] VITALS: BMI 25.2
--- NOTE | 2025-04-23 08:27 | HO.ANESPROP2 ---
Documented by User: Daina Rice NP 04/23/25 08:28 HPI - Anesthesia Eval Consult details Narrative: 39yo F for Panniculectomy PMFSH Active Problems Active Problems: All Active Problems Excess skin (Acute) Painful arc syndrome of right shoulder (Acute) Painful arc syndrome of left shoulder (Acute) De Quervain's tenosynovitis, bilateral (Acute) Shoulder pain (Acute) Congenital intra-abdominal adhesions (Acute) BMI 39.0-39.9,adult (Acute) Obesity (Acute) H. pylori infection (Acute) Zinc deficiency (Acute) Vitamin B12 deficiency (Acute) Vitamin D deficiency (Acute) Postgastrectomy malabsorption (Acute) S/P laparoscopic sleeve gastrectomy (Acute) GERD (gastroesophageal reflux disease) (Acute) Prediabetes (Acute) Morbid obesity (Acute) Anxiety and depression (Acute) Otitis externa (Acute) Past Medical History Medical History Arthritis Postgastrectomy malabsorption BMI 37.0-37.9, adult GERD (gastroesophageal reflux disease) Shoulder pain, bilateral History of snoring Prediabetes Back pain Morbid obesity Anxiety and depression Otitis externa Family History Family history of problems with anesthesia: No Surgical History Surgical History S/P laparoscopic sleeve gastrectomy History of cataract surgery (~2015) History of Problems with Anesthesia: No Social History Social History Household Members: None Household Members Other:: 4 children Housing: Apartment Are you a primary home care companion to a significant other at home: Yes (children, oldest 20 year old will assist post-op) Do you presently have visiting nurse or other home services: No Alcohol intake: current Alcohol intake frequency: holidays/special occasions only Patient Tobacco Use Status: Never used Tobacco Use of substances other than those prescribed or required for medical reasons: No Have you been hit, kicked, punched, or otherwise hurt by someone within the past year? If so, by whom?: No Are you DNR?: No Advance Directives: No Advance Directives Information Provided: Yes Advance Directives on File: No Patient : No : No Poor oral hygiene: Yes service: No Meds Allergies Allergy/AdvReac Type Severity Reaction Status Date / Time No Known Allergies (No Known Allergy Unknown Verified 04/16/25 11:31 Allergies*) Home Medications ?Medication ?Instructions ?Recorded ?Confirmed ?Last Taken ?Type escitalopram oxalate 10 mg tablet 10 mg PO BID 03/29/23 04/17/25 07/26/23 History lorazepam 1 mg tablet 1 mg PO DAILY PRN Anxiety 03/29/23 04/17/25 07/26/23 History Exam Height,Weight and Vital Signs: Height 5 ft 3 in Weight 64.41 kg Pertinent Lab Results Pertinent Lab Results: Laboratory Tests 04/16/25 10:06 Blood Type O Positive Antibody Screen NEGATIVE Laboratory Tests 04/16/25 10:28 WBC 4.2 L Hgb 12.3 Hct 36.8 L Plt Count 168 Sodium 142 Potassium 3.7 Chloride 108 Carbon Dioxide 27 BUN 11 Creatinine 0.63 Assessment and Plan Assessment Anesthesia Assessment: Chart Reviewed Final Anesthetic Review Family History of Problems with Anesthesia: No History of Problems with Anesthesia: No Documented by User: Julisa Rhoades MD 04/24/25 10:05 [facility] Past Medical History Medical History Arthritis Postgastrectomy malabsorption BMI 37.0-37.9, adult GERD (gastroesophageal reflux disease) Shoulder pain, bilateral History of snoring Prediabetes Back pain Morbid obesity Anxiety and depression Otitis externa Surgical History Surgical History S/P laparoscopic sleeve gastrectomy History of cataract surgery (~2015) Social History Social History Household Members: None Household Members Other:: 4 children Housing: Apartment Are you a primary home care companion to a significant other at home: Yes (children, oldest 20 year old will assist post-op) Do you presently have visiting nurse or other home services: No Alcohol intake: current Alcohol intake frequency: holidays/special occasions only Patient Tobacco Use Status: Never used Tobacco Use of substances other than those prescribed or required for medical reasons: No Have you been hit, kicked, punched, or otherwise hurt by someone within the past year? If so, by whom?: No Are you DNR?: No Advance Directives: No Advance Directives Information Provided: Yes Advance Directives on File: No Patient : No : No Poor oral hygiene: Yes service: No Meds Allergies Allergy/AdvReac Type Severity Reaction Status Date / Time No Known Allergies (No Known Allergy Unknown Verified 04/16/25 11:31 Allergies*) Home Medications ?Medication ?Instructions ?Recorded ?Confirmed ?Last Taken ?Type escitalopram oxalate 10 mg tablet 10 mg PO BID 03/29/23 04/17/25 07/26/23 History lorazepam 1 mg tablet 1 mg PO DAILY PRN Anxiety 03/29/23 04/17/25 07/26/23 History Exam Airway Mallampati Class: II TM Dist: >3cm Neck ROM: Full Loose/Missing/Broken Teeth: No Heart: RRR Lungs: CTA Assessment and Plan Assessment Anesthesia Assessment: Anesthesia Plan Discussed Final Anesthetic Review NPO: Yes ASA Class: II Final Preanesthetic Review: Meds/Allgs Chart Reviewed, Consent Obtained/Reviewed and Anes Risks/Benef Reviewed Patient Risk: Low Procedure Risk: Low Anesthetic Plan Anesthetic Plan: GA Disposition: Standard PACU
[2025-04-24] VITALS (14 sets, daily range): BP systolic 103–127; BP diastolic 54–72; PULSE 51–79; RESP 12–21; TEMP 36.6–37.3; O2SAT 98–100
[2025-04-24 08:56] LABS: UPreg QC Valid YES
[2025-04-24] MEDS: Lactated Ringers 1,000 ML 100 ML IVCONT (09:33)
[2025-04-24] MEDS: Aprepitant 32 MG/4.4 ML VIAL IVPUSH (09:34)
--- NOTE | 2025-04-24 10:50 | W.MHC.F2F ---
Service Date Service Date: 04/24/25 Encounter Date of encounter: 04/24/25 Reasons for Services Signs and symptoms assessed: s/p panniculectomy Reason for care home: wound care Homebound: Leaving the home is medically contraindicated at this time without the asist of a device and/or another person due th the listed conditions above and below. Reason homebound: unable to drive Certification: Based on the above findings, I certify that this patient is confined to the home and needs intermittent care home care, physical therapy and/or speech therapy, or continues to need occupational therapy. The patient is under my care, and I have initiated the establishment of the plan of care. The patient will be followed by a physician who will periodically review the plan of care. Time Spent With Patient Time: Total time managing care of this patient today __30__ minutes.
--- NOTE | 2025-04-24 10:55 | MHC.SHP ---
Pre-Procedural Eval Section A - 24 Hr Update-Section A only Date of Service: 04/24/25 The patient is an INPATIENT: No The patient has been examined within 24 hours of the surgical procedure. The History & Physical has been completed within 30 days and I have reviewed it.: Yes Section B - Complete if H&P > 30 days Chief Complaint: Excessive and redundant skin and subcut tissue Relevant Family History (Specify if Yes): No Relevant Social History: None Present Medications: None Medical History: No relevant PMH History of Previous Operations: Relevant previous surgery/procedure and date(s) (Laparoscopic sleeve gastrectomy) Allergies: Allergies Allergy/AdvReac Type Severity Reaction Status Date / Time No Known Allergies (No Known Allergy Unknown Verified 04/16/25 11:31 Allergies*) Review of Systems Sugical H&P ROS: Negative: Constitution, Cardiovascular, Respiratory, Neurological, Psychiatric, Hem-Onc, Allergic/Immunologic, Gastrointestinal, Genitourinary, Musculoskeletal, Integumentary, Endocrine and Eyes/Ears/Nose/Throat Exam Surgical H&P Exam: Normal: HEENT, Normal: Heart, Normal: Lungs, Normal: Extremities, Normal: Abdomen, Normal: Skin and Normal: Neurological Plan Diagnosis/Plan: Unchanged I have reviewed the history and physical and performed a pertinent physical examination on my patient. No changes have occurred unless specified. Time Spent With Patient Time: Total time managing care of this patient today ____ minutes.
--- NOTE | 2025-04-24 11:01 | PM.OP ---
Brief Operative Note Date of Service: 04/24/25 Pre-op diagnosis: Excess skin Procedure: PROCEDURE: Panniculectomy with umbilical transposition and bilateral subcutaneous fat flaps INDICATION: This a 39 year old female who underwent laparoscopic sleeve gastrectomy on 08/02/2023. She had an excellent result achieving a BMI of 23.8 kg/m2 with a total weight loss of 107.2lbs, or 43.6% of her TBWL. As a result, she has developed panniculitis which has not resolved despite continuous use of clotrimazole ointment as well as skin irritation. On exam she has extreme skin laxity due to massive weight loss, with the abdominal pannus completely hanging 4cm below the pubis. Panniculectomy was recommended. We discussed the two options for the panniculectomy of using a combined vertical and horizontal incisions or just a horizontal (bikini) incision. It was my recommendation to do only horizontal incision based on her body habitus and skin laxity. The patient agreed with this. Risks and complications were discussed with the patient including bleeding, infection, umbilical loss, flap necrosis, asymmetry, dehiscence, seroma, VTE. The patient understood the risks and was in agreement to proceed with surgery. PROCEDURE: The incisions were appropriately marked at the preop area with the patient standing and laying down. After induction of general anesthesia a Coto catheter and pneumatic compression devices were placed. The patient was prepped and draped in the usual sterile manner and the incisions were marked again and confirmed. The skin was infiltrated with lidocaine and epinephrine. The #10 blade scalpel was used for the large incisions and the #15 blade scalpel for the umbilicus. Cautery was used to divide the subcutaneous tissues until the fascia was identified. Then I used the Thunderbeat (Olympus) to separate the pannus from the fascia. The inferior incision was made initially and I mobilized the flap for a several centimeters cephalad to the umbilicus. The umbilicus was incised circumferentially and detached from the surrounding tissues all the way to the fascia while its stalk was preserved. With the patient in reflex position I confirmed that the skin flaps were appropriate and would allow for the tissues to come together with reasonable tension. At that point a horizontal incision was made 4 cm above the umbilicus. #10 blade was used for the skin, cautery for the dermis and for the remaining tissues. A subcutaneous fat flap was raised from the upper skin flap in order to fill the space under the skin and support the closure of the two flaps. In addition the inferior flap was mobilized caudally for a few centimeters to create a space for the subcutaneous fat flap as well as relieve tension from the closure. A circumferential incision was made at the area where the umbilicus would be re-implanted. The umbilicus was appropriately oriented and was delivered through the defect and was secured in place with a [place]. No bleeding was noted anywhere. One COLBY drain was placed from the left corner of the horizontal incision across the wound and was secured in place with a silk suture. The subcutaneous fat flap was secured under the inferior flap with several interrupted 3.0 Monocryl sutures. The two flaps were brought together and were attached at the midline of the horizontal incision with a #3.0 Monocryl suture. At that point the umbilicus was properly oriented and was re-approximated to the skin with 8 interrupted 3.0 Monocryl sutures. In a similar fashion the skin flaps were re-approximated with multiple 3.0 Monocryl sutures. The skin was closed in all incisions and umbilicus with 4.0 Monocryl sutures. Steri-strips, xeroform gauzes and gauzes were used to cover the incisions. An abdominal binder was also placed. The was awaken and was transferred to the recover room in a stable condition. I was present and performed the entire procedure. George Hoskins was the assistant foreman. Lewis Davies MD, PhD, FACS Surgeon: Obdulio Davies MD Surgeon: Obdulio Davies MD Anesthesia: local Was an Gray Mixing Operator used for this Procedure?: No Gray Mixing Operator: Myrtle Hoskins Estimated blood loss (mL): 10 IV fluids (mL): 1,500 Urine output (mL): 0 (No Coto to record output) Pathology: other (Abdominal pannus) Condition: stable Disposition: PACU
== END 2025-04-24 18:30 | disposition home or self-care (01) ==
PROVIDERS: Nurse Practitioner; PCP Internal Medicine; Visit Provider Surgery
PROC: 0JB80ZZ Excision of Abdomen Subcutaneous Tissue and Fascia, Open Approach (ICD-10-PCS; CPT 15830; principal; 2025-04-24 10:20)
DX: L98.7 Excessive and redundant skin and subcutaneous tissue (principal); M79.3 Panniculitis, unspecified; E65 Localized adiposity; K91.2 Postsurgical malabsorption, not elsewhere classified; R73.03 Prediabetes; F41.8 Other specified anxiety disorders; Z98.84 Bariatric surgery status; Z79.899 Other long term (current) drug therapy
CPT/HCPCS: 15830; 15847; 81025; 86850; 86900; 86901; 88304; C9145; J0131; J0690; J1100; J1171; J2003; J2004; J2250; J2405; J2704; J3010; J3374

== ENCOUNTER → 2025-04-24 08:28 | Outpatient (BNV) | payer MEDICAID, SELFPAY | PROVIDERS: PCP Internal Medicine; Visit Provider Physician Assistant Surgical | DX: M79.3 Panniculitis, unspecified (principal); L98.7 Excessive and redundant skin and subcutaneous tissue | CPT/HCPCS: 15830; G0180 ==

== ENCOUNTER 2025-04-30 15:39 | Outpatient (AMB) | payer MEDICAID, SELFPAY ==
[2025-04-30 15:47] VITALS: BP 101/63; PULSE 65; TEMP 36.6; O2SAT 100
--- NOTE | 2025-04-30 15:47 | A.OFFVIS_ITS ---
VS Expanded 04/30/25 15:47 BP 101/63 Blood Pressure Location Rt brachial Blood Pressure Position Sitting Pulse 65 Pulse Source Pulse Oximeter Temp 97.9 F Temperature Source Temporal Artery Scan Pulse Oximetry 100 Oxygen Delivery Method Room Air Intake Visit Reasons: (OV) s/p Panniculectomy 04/24/25 Allergies No Known Allergies (No Known Allergies*) Allergy (Unknown, Verified 04/30/25 15:48) HPI Comments Details: Pt is 1w s/p panniculectomy. Tolerating meal plan per Dr. Ferrell Taking abx. Wearing abdominal binder at all times. Drain output 20-30cc/day. [facility] Medical History Arthritis Postgastrectomy malabsorption BMI 37.0-37.9, adult GERD (gastroesophageal reflux disease) Shoulder pain, bilateral History of snoring Prediabetes Back pain Morbid obesity Anxiety and depression Otitis externa Surgical History (Updated 04/30/25 @ 16:27 by VICKY Abreu) S/P panniculectomy S/P laparoscopic sleeve gastrectomy History of cataract surgery (~2015) Social History Household Members: None Household Members Other:: 4 children Housing: Apartment Are you a primary manager care management to a significant other at home: Yes (children, oldest 20 year old will assist post-op) Do you presently have visiting nurse or other home services: No Alcohol intake: current Alcohol intake frequency: holidays/special occasions only Patient Tobacco Use Status: Never used Tobacco service: No Physical Exam Vital Signs: Last Vital Signs Temp 97.9 F 04/30/25 15:47 Pulse 65 04/30/25 15:47 BP 101/63 04/30/25 15:47 Pulse Ox 100 04/30/25 15:47 Oxygen Delivery Method Room Air 04/30/25 15:47 Const General: cooperative, comfortable and no acute distress Orientation/consciousness: patient oriented x3 GI Other: soft, nontender, nondistended, incisions c/d/i with inferior area of umbilicus with overlying eschar/discoloration, drain output SS Neuro General: patient oriented x3 Assessment & Plan Assessment & Plan (1) S/P panniculectomy: Code(s): Z98.890 - Other specified postprocedural states Category: Medical Plan Continue high protein diet. ABX keflex 500 BID x 2 weeks, extended as needed?(at least until drain comes out plus 1 week).? Drain out after consistently 20 mL or less daily.? Abdominal binder at all times except for care x 1 month?MINIMUM. If there are concerns longer.? No driving?until drain out.? No walking outside or exercise for 6 weeks minimum. Walking in the house after 1st appt if we are satisfied with progress. Assistance getting up for 4 weeks minimum.?No lifting greater than?10 pounds x 2 months and no abdominal exercises x 3 months. Photos taken today to send to Dr. Ferrell Pt will ask about inferior area of umbilicus.
== END 2025-04-30 16:28 | disposition home or self-care (01) ==
LOC: HO.HBS 15:39
PROVIDERS: PCP Internal Medicine; Visit Provider Physician Assistant Surgical
DX: Z48.817 Encounter for surgical aftercare following surgery on the skin and subcutaneous tissue (principal); Z98.890 Other specified postprocedural states
CPT/HCPCS: 99024; 99499

== ENCOUNTER → 2025-04-30 15:39 | Outpatient (BNVA) | payer MEDICAID, SELFPAY | PROVIDERS: PCP Internal Medicine; Visit Provider Physician Assistant Surgical | DX: Z48.817 Encounter for surgical aftercare following surgery on the skin and subcutaneous tissue (principal) | CPT/HCPCS: 99212 ==

== ENCOUNTER 2025-05-07 13:53 | Outpatient (AMB) | payer MEDICAID, SELFPAY ==
--- NOTE | 2025-05-07 13:54 | MHC.OFFVISWM ---
VS Expanded 05/07/25 13:57 BP 104/61 Blood Pressure Location Rt brachial Blood Pressure Position Sitting Pulse 63 Pulse Source Pulse Oximeter Temp 98.3 F Temperature Source Temporal Artery Scan Pulse Oximetry 99 Oxygen Delivery Method Room Air Intake Visit Reasons: (OV) s/p Panniculectomy 04/24/25 Accompanied by: Self / Same As Patient Allergies No Known Allergies (No Known Allergies*) Allergy (Unknown, Verified 05/07/25 13:59) Medication List - Last Reconciled 05/07/25 by VICKY Abreu cephalexin 500 mg PO Q12H docusate sodium (Colace) 100 mg PO DAILY escitalopram oxalate 10 mg PO BID lorazepam 1 mg PO DAILY PRN ondansetron 4 mg PO Q12H HPI Comments Details: Pt is 2w s/p panniculectomy. Tolerating meal plan per Dr. Ferrell Taking abx. Wearing abdominal binder at all times. Drain output 10-20cc/day. [facility] Medical History Arthritis Postgastrectomy malabsorption BMI 37.0-37.9, adult GERD (gastroesophageal reflux disease) Shoulder pain, bilateral History of snoring Prediabetes Back pain Morbid obesity Anxiety and depression Otitis externa Surgical History (Updated 04/30/25 @ 16:27 by VICKY Abreu) S/P panniculectomy S/P laparoscopic sleeve gastrectomy History of cataract surgery (~2015) Social History Household Members: None Household Members Other:: 4 children Housing: Apartment Are you a primary inspector health care facilities to a significant other at home: Yes (children, oldest 20 year old will assist post-op) Do you presently have visiting nurse or other home services: No Alcohol intake: current Alcohol intake frequency: holidays/special occasions only Patient Tobacco Use Status: Never used Tobacco service: No Physical Exam Vital Signs: Last Vital Signs Temp 98.3 F 05/07/25 13:57 Pulse 63 05/07/25 13:57 BP 104/61 05/07/25 13:57 Pulse Ox 99 05/07/25 13:57 Oxygen Delivery Method Room Air 05/07/25 13:57 Const General: cooperative, comfortable and no acute distress Orientation/consciousness: patient oriented x3 GI Other: soft, nontender, nondistended, steri-strips c/d/i, drain output SS Neuro General: patient oriented x3 Assessment & Plan Assessment & Plan (1) S/P panniculectomy: Code(s): Z98.890 - Other specified postprocedural states Category: Medical Plan Continue high protein diet. ABX keflex 500 BID x 2 weeks, extended as needed?(at least until drain comes out plus 1 week).? Drain out after consistently 20 mL or less daily.?Likely can remove next week. Abdominal binder at all times except for care x 1 month?MINIMUM. If there are concerns longer.? No driving?until drain out.? No walking outside or exercise for 6 weeks minimum. Walking in the house ok. Assistance getting up for 4 weeks minimum.?No lifting greater than?10 pounds x 2 months and no abdominal exercises x 3 months.
[2025-05-07 13:57] VITALS: BP 104/61; PULSE 63; TEMP 36.8; O2SAT 99
--- OUTSIDE RECORDS SUMMARY | 2025-05-07 17:41 | XMS_ITS | Clinical Summary ---
Author Organization [employer] Address [address] [facility] [address] [place] [address] Care Team Providers Care Riveter Automobile Brakes Name Role Phone Unavailable Primary Care Provider [...] of Phone Billing Address Personal/Family Self [address]
== END 2025-05-07 14:53 | disposition home or self-care (01) ==
LOC: HO.HBS 13:54
PROVIDERS: PCP Internal Medicine; Visit Provider Physician Assistant Surgical
DX: Z71.3 Dietary counseling and surveillance (principal); Z98.890 Other specified postprocedural states
CPT/HCPCS: 99024

== ENCOUNTER → 2025-05-07 13:53 | Outpatient (BNVA) | payer MEDICAID, SELFPAY | PROVIDERS: PCP Internal Medicine; Visit Provider Physician Assistant Surgical | DX: Z48.817 Encounter for surgical aftercare following surgery on the skin and subcutaneous tissue (principal); Z98.890 Other specified postprocedural states | CPT/HCPCS: 99212 ==

== ENCOUNTER 2025-05-14 09:42 | Outpatient (AMB) | payer MEDICAID, SELFPAY ==
[2025-05-14 09:58] VITALS: BP 101/57; PULSE 67; TEMP 36.7; O2SAT 99
--- NOTE | 2025-05-14 09:58 | MHC.OFFVISWM ---
VS Expanded 05/14/25 09:58 BP 101/57 L Blood Pressure Location Rt brachial Blood Pressure Position Sitting Pulse 67 Pulse Source Pulse Oximeter Temp 98.1 F Temperature Source Temporal Artery Scan Pulse Oximetry 99 Oxygen Delivery Method Room Air Intake Visit Reasons: (OV) s/p Panniculectomy 04/24/25 Allergies No Known Allergies (No Known Allergies*) Allergy (Unknown, Verified 05/14/25 10:02) HPI Comments Details: Pt is 3w s/p panniculectomy. Tolerating meal plan per Dr. Ferrell Taking abx. Wearing abdominal binder at all times. Drain output 10-15cc/day. Asks to go back to work sooner as she is not getting any income. [facility] Medical History Arthritis Postgastrectomy malabsorption BMI 37.0-37.9, adult GERD (gastroesophageal reflux disease) Shoulder pain, bilateral History of snoring Prediabetes Back pain Morbid obesity Anxiety and depression Otitis externa Surgical History (Updated 04/30/25 @ 16:27 by VICKY Abreu) S/P panniculectomy S/P laparoscopic sleeve gastrectomy History of cataract surgery (~2015) Social History Household Members: None Household Members Other:: 4 children Housing: Apartment Are you a primary patient care technician instructor to a significant other at home: Yes (children, oldest 20 year old will assist post-op) Do you presently have visiting nurse or other home services: No Alcohol intake: current Alcohol intake frequency: holidays/special occasions only Patient Tobacco Use Status: Never used Tobacco service: No Physical Exam Vital Signs: Last Vital Signs Temp 98.1 F 05/14/25 09:58 Pulse 67 05/14/25 09:58 BP 101/57 L 05/14/25 09:58 Pulse Ox 99 05/14/25 09:58 Oxygen Delivery Method Room Air 05/14/25 09:58 Const General: cooperative, comfortable and no acute distress Orientation/consciousness: patient oriented x3 GI Other: soft, nontender, nondistended, pannciulectomy incision healing well with umbilicus appearing improved from previous, drain output serous Neuro General: patient oriented x3 Assessment & Plan Assessment & Plan (1) S/P laparoscopic sleeve gastrectomy: Code(s): Z98.84 - Bariatric surgery status Category: Medical (2) S/P panniculectomy: Code(s): Z98.890 - Other specified postprocedural states Category: Medical Plan Continue high protein diet. ABX keflex 500 BID x 1 more week.? Drain out today.? Abdominal binder at all times except for care x 1 month?MINIMUM. If there are concerns longer.? May drive? No walking outside or exercise for 6 weeks minimum. Walking in the house ok. Assistance getting up for 4 weeks minimum.?No lifting greater than?10 pounds x 2 months and no abdominal exercises x 3 months. If pt still doing well at next week's appt, can clear to go back to work ([employer]) with restrictions of only being able to sit while at work.
== END 2025-05-14 10:49 | disposition home or self-care (01) ==
LOC: HO.HBS 09:43
PROVIDERS: PCP Internal Medicine; Visit Provider Physician Assistant Surgical
DX: Z71.3 Dietary counseling and surveillance (principal); Z98.84 Bariatric surgery status; Z98.890 Other specified postprocedural states
CPT/HCPCS: 99024

== ENCOUNTER → 2025-05-14 09:42 | Outpatient (BNVA) | payer MEDICAID, SELFPAY | PROVIDERS: PCP Internal Medicine; Visit Provider Physician Assistant Surgical | DX: Z48.817 Encounter for surgical aftercare following surgery on the skin and subcutaneous tissue (principal) | CPT/HCPCS: 99212 ==

== ENCOUNTER 2025-05-19 14:20 | Outpatient (AMB) | payer MEDICAID, SELFPAY ==
--- NOTE | 2025-05-19 14:28 | MHC.OFFVIS ---
Intake Visit Reasons: B/L shoulder injections, last inj 02/11/25 Allergies No Known Allergies (No Known Allergies*) Allergy (Unknown, Verified 05/14/25 10:02) [facility] HPI B/L shoulder injections, last inj 02/11/25: Details: Ms. Marika Daniel is a 39-year-old female who presents to the office today for bilateral repeat cortisone injections. Her last cortisone injection was 02/11/2025 which gave her some relief. [facility] Medical History Arthritis Postgastrectomy malabsorption BMI 37.0-37.9, adult GERD (gastroesophageal reflux disease) Shoulder pain, bilateral History of snoring Prediabetes Back pain Morbid obesity Anxiety and depression Otitis externa Surgical History (Updated 04/30/25 @ 16:27 by VICKY Abreu) S/P panniculectomy S/P laparoscopic sleeve gastrectomy History of cataract surgery (~2015) Social History Household Members: None Household Members Other:: 4 children Housing: Apartment Are you a primary care support representative to a significant other at home: Yes Do you presently have visiting nurse or other home services: No Alcohol intake: current Alcohol intake frequency: holidays/special occasions only Patient Tobacco Use Status: Never used Tobacco service: No Review of Systems Const All systems reviewed & are unremarkable except as noted in HPI and below Physical Exam Const General: cooperative, healthy appearing and no acute distress Resp Effort & Inspection: normal respiratory effort and able to speak in complete sentences Cardio Rate: regular rate Peripheral pulses: Peripheral pulses 2+ throughout Skin Lesions: no lesions Rashes: no rashes Extrem Other: Right/Left shoulder: Lacking 20 degrees of forward flexion and abduction.. Negative cross-body reach. 4/5 strength with empty can on the left, 3/5 strength with empty can on the right. Negative drop arm. NVI. Office Procedures AMB Joint Injection/Aspiration Joint Injection/Aspiration Primary Site: right shoulder Secondary Site: left shoulder Prep: site was prepped using aseptic technique, ethochloride spray was applied and injection warnings given Injected: 40 mg of, with 3 mL of, 1% plain lidocaine, 0.25% bupivacaine, in the subcromial space and decadron Approach Used: posterolateral Procedure: The patient tolerated the procedure well, but had some pain with the injection and there was some relief with the local anesthesia Coding - Bilateral Large Joint Procedure code (CPT) selection complete Assessment & Plan Assessment & Plan (1) Painful arc syndrome of left shoulder: Code(s): M75.102 - Unspecified rotator cuff tear or rupture of left shoulder, not specified as traumatic Category: Medical (2) Painful arc syndrome of right shoulder: Code(s): M75.101 - Unspecified rotator cuff tear or rupture of right shoulder, not specified as traumatic Category: Medical Plan The patient was offered a cortisone injection in bilateral shoulders. The patient was explained the risks, benefits, and alternatives to receiving this injection. After receiving consent for the injection, the patient had the procedure done while in the office today. The patient tolerated the procedure well with no complications. Follow-up will be PRN, or sooner if needed Coding Level of Care Code Est Pt Level 3 (23517) Diagnoses Painful arc syndrome of left shoulder M75.102 Painful arc syndrome of right shoulder M75.101 CPT Codes Coding - - Bilateral Large Joint: 18797 - Bilateral Large Joint ([id number])
--- OUTSIDE RECORDS SUMMARY | 2025-05-19 17:59 | XMS_ITS | Clinical Summary ---
Author Organization [employer] Address [address] [facility] 7t [place] [address] Care Team Providers Care Svp Operations Name Role Phone Unavailable Primary Care Provider [...] of Phone Billing Address Personal/Family Self [address]
== END 2025-05-19 14:40 | disposition home or self-care (01) ==
LOC: HO.HOS 14:21
PROVIDERS: PCP Internal Medicine; Visit Provider Physician Assistant
DX: M75.102 Unspecified rotator cuff tear or rupture of left shoulder, not specified as traumatic (principal); M75.101 Unspecified rotator cuff tear or rupture of right shoulder, not specified as traumatic
CPT/HCPCS: 20610; 99213

== ENCOUNTER → 2025-05-19 14:20 | Outpatient (BNVA) | payer MEDICAID, SELFPAY | PROVIDERS: PCP Internal Medicine; Visit Provider Physician Assistant | DX: M75.101 Unspecified rotator cuff tear or rupture of right shoulder, not specified as traumatic (principal); M75.102 Unspecified rotator cuff tear or rupture of left shoulder, not specified as traumatic | CPT/HCPCS: 20610; 99212; J0665; J1100; J2003 ==

== ENCOUNTER 2025-05-21 15:55 | Outpatient (AMB) | payer MEDICAID, SELFPAY ==
[2025-05-21 16:09] VITALS: BP 121/55; PULSE 69; TEMP 36.5; O2SAT 100
--- NOTE | 2025-05-21 16:09 | A.OFFVIS_ITS ---
VS Expanded 05/21/25 16:09 BP 121/55 L Blood Pressure Location Rt brachial Blood Pressure Position Sitting Pulse 69 Pulse Source Pulse Oximeter Temp 97.7 F Temperature Source Temporal Artery Scan Pulse Oximetry 100 Oxygen Delivery Method Room Air Intake Visit Reasons: (OV) s/p Panniculectomy 04/24/25 Allergies No Known Allergies (No Known Allergies*) Allergy (Unknown, Verified 05/21/25 16:09) Medication List - Last Reconciled 05/21/25 by VICKY Abreu cephalexin 500 mg PO Q12H docusate sodium (Colace) 100 mg PO DAILY escitalopram oxalate 10 mg PO BID lorazepam 1 mg PO DAILY PRN ondansetron 4 mg PO Q12H HPI Comments Details: Pt is 3w s/p panniculectomy 04/24/2025. Drain out, no fevers at home. Tolerating meal plan. Wearing abdominal binder as directed. [facility] Medical History Arthritis Postgastrectomy malabsorption BMI 37.0-37.9, adult GERD (gastroesophageal reflux disease) Shoulder pain, bilateral History of snoring Prediabetes Back pain Morbid obesity Anxiety and depression Otitis externa Surgical History S/P panniculectomy S/P laparoscopic sleeve gastrectomy History of cataract surgery (~2015) Social History Household Members: None Household Members Other:: 4 children Housing: Apartment Are you a primary day care supervisor to a significant other at home: Yes Do you presently have visiting nurse or other home services: No Alcohol intake: current Alcohol intake frequency: holidays/special occasions only Patient Tobacco Use Status: Never used Tobacco service: No Physical Exam Vital Signs: Last Vital Signs Temp 97.7 F 05/21/25 16:09 Pulse 69 05/21/25 16:09 BP 121/55 L 05/21/25 16:09 Pulse Ox 100 05/21/25 16:09 Oxygen Delivery Method Room Air 05/21/25 16:09 Const General: cooperative, comfortable and no acute distress Orientation/consciousness: patient oriented x3 GI Other: soft, nontender, nondistended, panniculectomy incision c/d/i with umbilicus appearing improved and healing, drain site healed Neuro General: patient oriented x3 Assessment & Plan Assessment & Plan (1) S/P panniculectomy: Code(s): Z98.890 - Other specified postprocedural states Category: Medical Plan Continue high protein diet. ABX keflex 500 BID to complete today.? Abdominal binder at all times except for care x 1 month?MINIMUM. If there are concerns longer.? May drive. No walking outside or exercise for 6 weeks minimum. Walking in the house ok. Assistance getting up for 4 weeks minimum.?No lifting greater than?10 pounds x 2 months and no abdominal exercises x 3 months. 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 RTC 2w.
--- OUTSIDE RECORDS SUMMARY | 2025-05-21 20:04 | XMS_ITS | Clinical Summary ---
Author Organization [employer] Address [address] [facility] 7[address] [place] [address] Care Team Providers Care Protocol Officer Name Role Phone Unavailable Primary Care Provider [...] of Phone Billing Address Personal/Family Self [address]
== END 2025-05-21 17:11 | disposition home or self-care (01) ==
LOC: HO.HBS 15:55
PROVIDERS: PCP Internal Medicine; Visit Provider Physician Assistant Surgical
DX: Z71.3 Dietary counseling and surveillance (principal); Z98.890 Other specified postprocedural states
CPT/HCPCS: 99024

== ENCOUNTER → 2025-05-21 15:55 | Outpatient (BNVA) | payer MEDICAID, SELFPAY | PROVIDERS: PCP Internal Medicine; Visit Provider Physician Assistant Surgical | DX: E66.01 Morbid (severe) obesity due to excess calories (principal); Z90.3 Acquired absence of stomach [part of]; Z98.890 Other specified postprocedural states; Z02.79 Encounter for issue of other medical certificate | CPT/HCPCS: 99212 ==

== ENCOUNTER 2025-06-05 15:36 | Outpatient (AMB) | payer MEDICAID, SELFPAY ==
--- NOTE | 2025-06-05 15:41 | MHC.OFFVISWM ---
VS Expanded 06/05/25 15:50 BP 125/73 Blood Pressure Location Rt brachial Blood Pressure Position Sitting Pulse 89 Pulse Source Pulse Oximeter Temp 97.1 F Temperature Source Temporal Artery Scan Pulse Oximetry 97 Oxygen Delivery Method Room Air Height 5 ft 4 in Weight 140 lb 3.2 oz BMI 24.1 Body Fat % 27.1 Body Fat Mass 38.0 Fat Free Mass 102.0 Visceral Fat Rating 4.0 Body Water % 52.0 Body Water Mass 72.8 Muscle Mass/Score 96.8 Basal Metabolic Rate/Score 1,369 Intake Visit Reasons: (OV) s/p Panniculectomy 04/24/25 Allergies No Known Allergies (No Known Allergies*) Allergy (Unknown, Verified 06/05/25 15:44) Medication List - Last Reconciled 06/05/25 by VICKY Abreu docusate sodium (Colace) 100 mg PO DAILY escitalopram oxalate 10 mg PO BID lorazepam 1 mg PO DAILY PRN ondansetron 4 mg PO Q12H HPI Comments Details: Pt is 5w s/p panniculectomy. Returned to work, remaining seated. No fevers. Off abx. Continues to wear abdominal binder. [facility] Medical History Arthritis Postgastrectomy malabsorption BMI 37.0-37.9, adult GERD (gastroesophageal reflux disease) Shoulder pain, bilateral History of snoring Prediabetes Back pain Morbid obesity Anxiety and depression Otitis externa Surgical History S/P panniculectomy S/P laparoscopic sleeve gastrectomy History of cataract surgery (~2015) Social History Household Members: None Household Members Other:: 4 children Housing: Apartment Are you a primary child care aide to a significant other at home: Yes Do you presently have visiting nurse or other home services: No Alcohol intake: current Alcohol intake frequency: holidays/special occasions only Patient Tobacco Use Status: Never used Tobacco service: No Physical Exam Vital Signs: Last Vital Signs Temp 97.1 F 06/05/25 15:50 Pulse 89 06/05/25 15:50 BP 125/73 06/05/25 15:50 Pulse Ox 97 06/05/25 15:50 Oxygen Delivery Method Room Air 06/05/25 15:50 BMI result Body Mass Index 24.1 Const General: cooperative, comfortable and no acute distress Orientation/consciousness: patient oriented x3 GI Other: soft, nontender, nondistended, lower incision well healed, umbilicus with one small area of fibrinous tissue- appears superficial, no drainage or surrounding erythema Neuro General: patient oriented x3 Assessment & Plan Assessment & Plan (1) S/P laparoscopic sleeve gastrectomy: Code(s): Z98.84 - Bariatric surgery status Category: Medical (2) S/P panniculectomy: Code(s): Z98.890 - Other specified postprocedural states Category: Medical Plan Continue high protein diet. May transition to softer abdominal binder as long as it holds similar compression. No walking outside or exercise yet. No lifting greater than?10 pounds x 2 months and no abdominal exercises x 3 months. RTC in 2w to reassess umbilicus.
[2025-06-05 15:50] VITALS: BP 125/73; PULSE 89; TEMP 36.2; O2SAT 97; BMI 24.1
--- OUTSIDE RECORDS SUMMARY | 2025-06-05 18:33 | XMS_ITS | Clinical Summary ---
Author Organization [employer] Address [address] [facility] 7t [place] [address] Care Team Providers Care Body Corporate Manager Name Role Phone Unavailable Primary Care Provider [...] AM EST Sexual Orientation Don't know 09/23/2022 9 :00 AM EST Last Filed Vital Signs Vital [...] of Phone Billing Address Personal/Family Self [address]
== END 2025-06-05 16:09 | disposition home or self-care (01) ==
LOC: HO.HBS 15:37
PROVIDERS: PCP Internal Medicine; Visit Provider Physician Assistant Surgical
DX: Z71.3 Dietary counseling and surveillance (principal); Z98.84 Bariatric surgery status; Z98.890 Other specified postprocedural states
CPT/HCPCS: 99024

== ENCOUNTER → 2025-06-05 15:36 | Outpatient (BNVA) | payer MEDICAID, SELFPAY | PROVIDERS: PCP Internal Medicine; Visit Provider Physician Assistant Surgical | DX: K90.49 Malabsorption due to intolerance, not elsewhere classified (principal); E66.01 Morbid (severe) obesity due to excess calories; Z68.24 Body mass index [BMI] 24.0-24.9, adult; Z90.3 Acquired absence of stomach [part of]; Z98.890 Other specified postprocedural states; Z71.3 Dietary counseling and surveillance | CPT/HCPCS: 99212 ==

== ENCOUNTER 2025-06-25 10:07 | Outpatient (AMB) | payer MEDICAID, SELFPAY ==
--- NOTE | 2025-06-25 10:09 | MHC.OFFVISWM ---
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 Denies any incisional issues. Has been keeping umbilicus covered with gauze, since it had a raw area at last visit. Current meal plan Premade Premier shake 1/2 shake with 4oz UAM 3x per day Protein bar Dinner 7-7:30pm 4 chicken breast, 4 veggies Current exercise plan: none Work status: [employer], already returned to work [facility] Medical History Arthritis Postgastrectomy malabsorption BMI 37.0-37.9, adult GERD (gastroesophageal reflux disease) Shoulder pain, bilateral History of snoring Prediabetes Back pain Morbid obesity Anxiety and depression Otitis externa Surgical History S/P panniculectomy S/P laparoscopic sleeve gastrectomy History of cataract surgery (~2015) Social History Household Members: None Household Members Other:: 4 children Housing: Apartment Are you a primary wound care specialist to a significant other at home: Yes Do you presently have visiting nurse or other home services: No Alcohol intake: current Alcohol intake frequency: holidays/special occasions only Patient Tobacco Use Status: Never used Tobacco service: No Physical Exam Const General: cooperative, healthy appearing, comfortable and no acute distress Orientation/consciousness: patient oriented x3 GI Other: soft, nontender, nondistended, lower incision well healed, umbilicus with one small area of fibrinous tissue underneath loose scab - appears superficial, no drainage or surrounding erythema. Neuro General: patient oriented x3 Assessment & Plan Assessment & Plan (1) S/P panniculectomy: Code(s): Z98.890 - Other specified postprocedural states Category: Surgical Plan: Plan: - Continue high protein diet per Dr Myles - Incision is healing well. Instead of gauze and tape, place bandaid over umbilicus to protect healing area from rubbing against abdominal binder. Bandaid will allow air flow and should promote healing. Change daily and prn soiled - Recommend compressive garment until 3 months post op. She may switch to other compressive waist wrap if she prefers over the post-op abdominal binder. - She is 2 months post op, and can now increase her exercise including cardio and can slowly increase her lifting. Still no abdominal exercises for 1 more month Follow up: 1 month for her annual visit s/p INGEG
[2025-06-25 10:14] VITALS: BP 110/67; PULSE 63; TEMP 36.7; O2SAT 99
--- OUTSIDE RECORDS SUMMARY | 2025-06-25 11:33 | XMS_ITS | Clinical Summary ---
Author Organization [employer] Address [address] [facility] 7t [place] [address] Care Team Providers Care Burn Nurse Name Role Phone Unavailable Primary Care Provider [...] of Phone Billing Address Personal/Family Self [address]
== END 2025-06-25 10:51 | disposition home or self-care (01) ==
LOC: HO.HBS 10:07
PROVIDERS: PCP Internal Medicine; Visit Provider Nurse Practitioner
DX: L98.7 Excessive and redundant skin and subcutaneous tissue (principal); Z98.890 Other specified postprocedural states
CPT/HCPCS: 99024

== ENCOUNTER → 2025-06-25 10:07 | Outpatient (BNVA) | payer MEDICAID, SELFPAY | PROVIDERS: PCP Internal Medicine; Visit Provider Nurse Practitioner | DX: Z48.815 Encounter for surgical aftercare following surgery on the digestive system (principal); Z98.890 Other specified postprocedural states | CPT/HCPCS: 99212 ==